=== PATIENT | male | born 1940 | race Caucasian/White ===

== ENCOUNTER → 2018-03-22 10:33 | Outpatient (CLI) | payer OTHER, SELFPAY ==
[2018-03-22 11:53] LABS: Alanine Aminotransferase 23 IU/L (21-72); Albumin 4.1 g/dL (3.5-5.0); Albumin Globulin Ratio 1.4 (1.0-2.8); Alkaline Phosphatase 62 U/L (38-126); Aspartate Aminotransferase 19 IU/L (17-59); BUN Creatinine Ratio 13.8 (6-22); Bilirubin Total 0.8 mg/dL (0.2-1.3); Calcium 9.2 mg/dL (8.4-10.2); Estimated Glomerular Filt Rate 53.3 mL/min (>60); Glucose 163 mg/dL (80-110); HEMOLYSIS < 15 (0-50); Potassium 4.6 mmol/L (3.4-5.1); Sodium 142 mmol/L (137-145); Total Protein 7.1 g/dL (6.3-8.2)
[2018-03-22 18:26] LABS: Hemoglobin A1C% w Est Avg Glu 7.5 % (4.0-6.0)
== END ==
PROVIDERS: PCP Internal Medicine; Visit Provider Internal Medicine
DX: E66.9 Obesity, unspecified (principal); E11.22 Type 2 diabetes mellitus with diabetic chronic kidney disease
CPT/HCPCS: 36415; 80053; 83036

== ENCOUNTER → 2018-05-21 14:49 | Outpatient (CLI) | payer OTHER, SELFPAY ==
[2018-05-21 19:37] LABS: Hemoglobin A1C% w Est Avg Glu 7.3 % (4.0-6.0)
== END ==
PROVIDERS: PCP Internal Medicine; Visit Provider Orthopaedic Surgery
DX: R73.9 Hyperglycemia, unspecified (principal); M17.12 Unilateral primary osteoarthritis, left knee
CPT/HCPCS: 36415; 83036

== ENCOUNTER 2018-05-27 16:06 | Observation (INO) | payer OTHER, SELFPAY ==
--- NOTE | 2018-05-27 | DI.ECHO.S_ITS ---
[facility] +---------+ : : [address] : : : : [id number] : : : : Phone: [phone]+ Echocardiogram Report + + :Name: CHELSEA BENSON Study Date: 05/28/2018 Height: 68 in : :[facility] Exam Location: [place] Weight: 197 lb : : Gender: Male BSA: 2.0 m2 : :: 1940 Age: 77 yrs BP: 134/77 mmHg: :Reason For Study: CVA : :Ordering Physician: Anali : :Cousins Performed By: Anuja Zendejas : :Referring: ANALI SERRANO A : + + Interpretation Summary There is mild concentric left ventricular hypertrophy. The left ventricular ejection fraction is normal. The ejection fraction is estimated to be 55-60%. There are no focal wall motion abnormalities. Assessment of diastolic parameters indicates a relaxation abnormality of the left ventricle, consistent with normal filling pressures. The right ventricle is normal in size and function. Pulmonary artery pressures cannot be estimated because of the lack of a measurable TR jet velocity. The left atrial size is normal. The right atrium is moderately dilated. There is no significant valvular heart disease. The ascending aorta is mildly enlarged. The aortic arch is mildly enlarged. No obvious source for cardiac embolic CVA. Procedure: A two-dimensional transthoracic echocardiogram with color flow and Doppler was performed. The study quality was technically adequate. Comparison is made with the echocardiogram of 03/05/17. The patient was in sinus bradycardia with heart rates between 51 and 60 bpm during the exam. Left Ventricle: The left ventricle is normal in size. There is mild concentric left ventricular hypertrophy. The left ventricular ejection fraction is normal. The ejection fraction is estimated to be 55-60%. There are no focal wall motion abnormalities. Assessment of diastolic parameters indicates a relaxation abnormality of the left ventricle, consistent with normal filling pressures. Right Ventricle: The right ventricle is normal in size and function. Atria: The left atrial size is normal. The right atrium is moderately dilated. There is no Doppler evidence for an interatrial shunt. Mitral Valve: The mitral valve leaflets appear thickened, but open well. There is trace mitral regurgitation. Aortic Valve: The aortic valve is trileaflet. There is mild aortic valve sclerosis. The aortic valve opens well. There is trace aortic regurgitation. Tricuspid Valve: The tricuspid valve is normal. There is a trace or physiologic amount of tricuspid regurgitation. Pulmonary artery pressures cannot be estimated because of the lack of a measurable TR jet velocity. Pulmonic Valve: The pulmonic valve leaflets are thin and pliable; valve motion is normal. There is mild pulmonic regurgitation. There is no significant valvular heart disease. Great Vessels: The aortic root is normal size. The ascending aorta is mildly enlarged. The aortic arch is mildly enlarged. The pulmonary is not well visualized. The IVC is of normal diameter and collapses greater than 50% with a sniff. This suggests a low right atrial pressure of 3 mm Hg. Pericardium/ Pleura There is no pericardial effusion. There is no pleural effusion. MMode/2D Measurements & Calculations LVIDd: 4.8 cm LVOT diam: 2.1 cm LVIDs: 3.2 cm Ao root diam: 3.6 cm FS: 32.8 % asc Aorta Diam: 4.0 cm EPSS: 0.87 cm Ao Arch Diam (Prox Trans): 3.8 cm IVSd: 1.1 cm LVPWd: 1.0 cm LV ryan. diameter/BSA (cm/m^2): 2.4 LV sys. diameter/BSA (cm/m^2): 1.6 LA A2 area: 23.5 cm2 RA long axis: 5.8 cm LA A4 area: 15.1 cm2 RA area: 25.0 cm2 LA length (vol): 5.6 cm RA vol: 91.5 ml LA vol: 53.8 ml RA : 45.1 ml/m2 LA vol index: 26.5 ml/m2 IVC diam: 1.9 cm RVD1 (basal): 4.6 cm RVD2 (mid): 3.9 cm TAPSE: 2.3 cm Doppler Measurements & Calculations Ao V2 max: 145.3 cm/sec LVOT Max Tony: 89.5 cm/sec Ao V2 mean: 101.7 cm/sec LV V1 max P.2 mmHg Ao max P.4 mmHg LV V1 VTI: 21.1 cm Ao mean P.5 mmHg CATHRYN(I,D): 2.1 cm2 Ao V2 VTI: 33.3 cm CATHRYN(V,D): 2.0 cm2 sev ratio: 0.63 CATHRYN indexed to BSA (cm^2/m^2): 1.0 MV E max tony: 77.2 cm/sec PA V2 max: 85.4 cm/sec MV A max tony: 88.3 cm/sec PA V2 mean: 56.5 cm/sec MV E/A: 0.87 PA mean P.5 mmHg Med Peak E' Tony: 5.1 cm/sec PA pr(Accel): 14.1 mmHg E/E' med: 15.3 Lat Peak E' Tony: 7.2 cm/sec E/E' lat: 10.8 E/e' average: 13.0 MV dec time: 0.21 sec MV P1/2t: 61.7 msec MV P1/2t max tony: 76.1 cm/sec MVA(P1/2t): 3.6 cm2 Reading Physician:DAY
--- NOTE | 2018-05-27 | DI.MRI.S_ITS ---
PROCEDURE: MR STROKE Pre- and post-contrast brain MRI, non-contrast brain MR angiogram, pre- and postcontrast neck MR angiogram INDICATIONS: POSS CVA TECHNIQUE: Brain: Noncontrast axial T1 spin echo, axial T2 fast spin echo, sagittal and axial FLAIR, coronal T2 fast spin echo, axial gradient echo, axial diffusion and ADC through the brain. After the administration of contrast, axial 3D VIBE of the cranial vasculature and brain. Brain MRA: Non-contrast 3-D time of flight MR angiogram, with multiple zyixydq-ckjqefpnc-gzdyspfrci (MIP) reformats performed. Neck MRA: Axial and sagittal TruFISP through the neck. Coronal dynamic MR angiogram during administration of contrast in the arterial and venous phases, with 3-dimenstional tdcqnuy-hiniywudw-qiwnmqfwri (MIP) reformats constructed from subtraction images. COMPARISON: None. FINDINGS: Image quality: Slightly degraded by patient motion artifact. BRAIN: CSF spaces: Ventricles are normal in size and shape. Basal cisterns are patent. No extra-axial fluid collections. Brain: No intracranial bleeds or mass effects. Christian-white matter interface is normal. Diffusion weighted images show no acute ischemic insults. There are moderate to severe periventricular and subcortical white matter chronic microvascular ischemic changes. Brainstem appears normal. Normal intravascular flow voids are present. No abnormal intracranial enhancement. Skull and face: Calvarial marrow signal is normal. Orbits appear normal. Sinuses: Sinuses and mastoids are clear. BRAIN MR ANGIOGRAM: Anterior circulation: Intracranial internal carotid arteries are normal in size and enhancement. The flow within the paired anterior cerebral arteries is normal and symmetric. The flow within the middle cerebral arteries is normal and symmetric. The anterior communicating artery is seen. No stenoses, occlusions, or aneurysms. Posterior circulation: The visualized portions of the vertebral arteries demonstrate normal caliber, and join to form a normal appearing basilar artery. The flow within the posterior cerebral arteries is normal and symmetric. No stenoses, occlusions, or aneurysms. NECK MR ANGIOGRAM: Carotids: Great vessels demonstrate aligned anatomy as they arise from the aortic arch. The origins of the common carotid arteries appear patent. The calibers and courses of both common carotid arteries are normal. Mild atherosclerotic irregularity is noted in the origins of the internal carotid arteries bilaterally which causes less than 50% stenosis of the vessels. Posterior circulation: The origins of the vertebral arteries are poorly visualized due to motion artifact and cannot be evaluated. More superior portions of both vertebral arteries demonstrate normal course and caliber, and join to form a normal appearing basilar artery. Miscellaneous: Subclavian arteries appear patent. Pre-contrast images through the neck show no soft tissue abnormalities. IMPRESSION: BRAIN MRI: 1. No acute intracranial disease process. 2. No areas of acute or chronic infarction. 3. Moderate, diffuse cerebral volume loss. 4. Moderate periventricular and subcortical white matter chronic microvascular ischemic changes. BRAIN MR ANGIOGRAM: Negative examination. NECK MR ANGIOGRAM: 1. Less than 50% stenosis of the origins of the internal carotid arteries bilaterally. 3. Origins of the vertebral arteries are not well-visualized secondary to motion artifact and cannot be evaluated. The well visualized portions of the vertebral arteries are fully patent. Dictated by: Jolie Fermin MD, PhD on 05/28/2018 at 12:12 Approved by: Jolie Fermin MD, PhD on 05/28/2018 at 12:19
[2018-05-27 16:20] VITALS: BP 168/80; PULSE 73; RESP 16; TEMP 36.7; O2SAT 99
--- NOTE | 2018-05-27 16:29 | DI.CT.S_ITS ---
PROCEDURE: CT ANGIO HEAD AND NECK INDICATIONS: possible stroke, tpa candidate TECHNIQUE: Pre-contrast 4.5 mm thick sections acquired from the foramen magnum to the vertex. After the administration of intravenous contrast, 1 mm thick sections acquired from the aortic arch through the Counselor of Qiu. Post-contrast 4.5 mm thick sections then re-acquired from the foramen magnum to the vertex. 3-dimensional rfvamti-clkvslnqo-oklggbzhix (MIP) and/or volume rendering reformats were acquired of the central intracranial vasculature and neck separately. COMPARISON: [facility], CT, HEAD WITHOUT CONTRAST, 03/04/2017, 20:26. [facility], CT, HEAD AND NECK ANGIO, 03/04/2017, 20:55. [facility], MR, STROKE PROTOCOL, 03/05/2017, 8:52. FINDINGS: Image quality: Excellent. BRAIN: CSF spaces: Ventricles are enlarged and symmetrical in size and shape. Basal cisterns are patent. No extra-axial fluid collections. Brain: No midline shift. No intracranial bleeds or masses. Christian-white matter interface appears intact. Periventricular and deep white matter chronic small vessel ischemic changes. Skull and face: Calvarium and facial bones appear intact, without suspicious lesions. Orbits appear normal. Sinuses: Sinuses and mastoids are clear. HEAD CT ANGIOGRAPHY: Anterior circulation: Intracranial internal carotid arteries are normal in size and flow. The flow within the paired anterior cerebral arteries is normal and symmetric. The flow within the middle cerebral arteries is normal and symmetric. The anterior communicating artery is seen. No aneurysms are seen. Posterior circulation: Visualized portions of the vertebral arteries demonstrate normal caliber, and join to form a normal appearing basilar artery. Flow within the posterior cerebral arteries is normal and symmetric. No aneurysms are seen. NECK CT ANGIOGRAPHY: Carotid system: The great vessels demonstrate a conventional anatomy as they arise from the aortic arch. The origins of the common carotid arteries appear patent. The common carotid arteries demonstrate normal caliber and courses. The bifurcation regions show a calcified plaque in the proximal ICA on the right and a soft plaque posteriorly on the left, both stenoses less than 50%. The internal carotid arteries demonstrate normal calibers and courses. Posterior circulation: The origins of the vertebral arteries both appear widely patent. The more superior extracranial portions of both vertebral arteries also demonstrate normal courses and calibers. They join to form a normal appearing basilar artery. Soft tissues: Visualized neck soft tissues demonstrate no suspicious abnormalities. Bones: No suspicious bony lesions. Visualized cervical spine appears normally aligned. IMPRESSION: 1. No intracranial hemorrhage or contraindication to TPA seen. 2. Age related atrophy, primarily central. Chronic deep white matter ischemic changes. 3. 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 4. Normal-appearing intracranial vasculature, no occlusion or aneurysm seen. Any quantitative measurements of stenosis were performed using NASCET criteria. Dictated by: Cornelius Choudhury M.D. on 05/27/2018 at 16:55 Approved by: Cornelius Choudhury M.D. on 05/27/2018 at 17:02
[2018-05-27 16:36] LABS: Add Manual Diff / Slide Review NO; Basophils Percent Auto 0.5 % (0-2); Eosinophils Percent Auto 0.4 % (2-4); Hematocrit 40.4 % (41-53); Hemoglobin 13.9 g/dL (13.5-17.5); Lymphocytes Percent Auto 21.5 % (25-40); Mean Corpuscular HGB Conc 34.5 % (30-36); Mean Corpuscular Hemoglobin 29.9 PG (26-34); Mean Corpuscular Volume 86.6 fL (80-100); Monocytes Percent Auto 6.3 % (3-14); Neutrophils Absolute Auto 5800 /uL (3000-5900); Neutrophils Percent Auto 71.3 % (50-75); Platelet Count 273 X10^3/uL (150-400); Red Blood Cell Count 4.66 X10^6/uL (4.5-5.9); Red Cell Distribution Width 13.7 % (11.6-14.8); White Blood Cell Count 8.2 X10^3/uL (4.5-11.0)
[2018-05-27 16:43] LABS: INR 1.1 (0.9-1.3); Prothrombin Time 11.9 SECONDS (10.1-12.7)
[2018-05-27 16:46] LABS: PTT Partial Thromboplastin Tim 30 SECONDS (26.4-36.2)
--- NOTE | 2018-05-27 16:48 | ED.AMS ---
HPI - Altered Mental Status General Chief Complaint: Altered Mental Status Stated Complaint: MIXING UP WORDS, SLURRING EARLIER Time Seen by Provider: 05/27/18 16:28 Source: patient and family Mode of arrival: ambulatory Limitations: no limitations History of Present Illness HPI narrative: Patient is a 77-year-old male here for evaluation of slurring his words and being confused. He is with his family member who is at bedside. His reported that sometime earlier in the day the patient left the house. The patient and the family member do not know exactly when this time was. When he returned to the home the family member states that he was slurring his words and was confused. They stated that this is not his baseline. They also stated that the patient had similar symptoms a couple days ago but just went to sleep when they came on and when he woke up everything was improved. At the time of evaluation patient and the family member both state that the slurring had resolved. The patient does agree that he has had some problems with remembering things. He denies any other symptoms. Related Data Home Medications Medication Instructions Recorded Confirmed naproxen sodium 220 mg capsule 440 mg PO TID cap 05/17/18 05/27/18 Syringes: 1cc Insulin Syringes 1 syr QPM 05/27/18 05/27/18 with [place] Test Strips - Freestyle 1 str BID 05/27/18 05/27/18 Previous Rx's Medication Instructions Recorded aspirin 325 mg PO QDAY #30 tab 03/05/17 atorvastatin [Lipitor] 20 mg PO HS #90 tab 09/10/17 lisinopril 30 mg PO BID #180 tab 10/20/17 metoprolol succinate 50 mg PO QDAY #90 ter 10/20/17 insulin glargine [Lantus U-100 12 - 14 unit SQ SEE INSTRUCTIONS 01/21/18 Insulin] #5 vial glimepiride 2 mg tablet 2 mg PO Q DAY #90 tab 04/01/18 Allergies Allergy/AdvReac Type Severity Reaction Status Date / Time finasteride AdvReac Mild DIZZY/ILL Verified 05/17/18 14:53 Review of Systems Constitutional Denies fatigue, Denies fever(s) and Denies headache(s) Eyes Denies blurry vision, Denies diplopia, Denies irritation and Denies loss of vision ENT Ears, Nose, Mouth, and Throat: Denies vertigo, Denies dizziness, Denies facial pain, Denies headache(s), Denies neck pain and Denies disequilibrium Cardiovascular Denies chest pain, Denies syncope and Denies palpitations Respiratory Denies chest congestion and Denies cough Gastrointestinal Gastrointestinal: Denies constipation, Denies diarrhea, Denies nausea and Denies vomiting Genitourinary Denies dysuria Musculoskeletal Denies abnormal gait, Denies myalgias, Denies arthralgias, Denies neck pain and Denies tingling Integumentary/Breasts Denies lesions and Denies rash Neurologic Reports abnormal speech, Denies abnormal gait, Reports confusion, Denies vertigo, Denies dizziness, Denies syncope, Denies headache(s), Denies focal weakness, Denies loss of vision, Denies convulsions, Denies sensory deficit, Denies tingling, Denies paresthesias and Denies disequilibrium Psychiatric Reports confusion and Denies depression Endocrine Denies fatigue and Denies palpitations Hematologic/Lymphatic Denies easy bleeding and Denies easy bruising Allergic/Immunologic Denies urticaria Exam Initial Vital Signs Initial Vital Signs: Vital Signs Temperature 98.1 F 05/27/18 16:20 Pulse Rate 73 05/27/18 16:20 Respiratory Rate 16 05/27/18 16:20 Blood Pressure 168/80 H 05/27/18 16:20 Pulse Oximetry 99 05/27/18 16:20 Const General: cooperative, healthy appearing, comfortable, well developed, well groomed and No acute distress Orientation: alert, awake and oriented x3 [facility] Head: normal to inspection, normocephalic and atraumatic Ears: hearing grossly normal bilaterally Nose: external nose normal Face and sinus: normal facial exam and face symmetric Mouth: oral mucosae normal Eyes General: appearance normal, both eyes and all related structures Pupils: PERRL EOM: EOM intact bilaterally Resp Effort & Inspection: normal respiratory effort Auscultation: clear to auscultation bilaterally Cardio Rate: regular rate Rhythm: regular rhythm Pulses: radial pulses present GI Inspection: normal to inspection and non-distended Palpation: soft and No tender Back/Spine/Pelvis Back: normal to inspection and No CVA tenderness Skin Lesions: no lesions Rashes: no rashes Neuro General: alert, awake and oriented ( Oriented to person, place, did not know the year, did not know the president) Cranial Nerves: CN's II-XI intact bilaterally Speech: speech normal Motor: muscle tone normal throughout and strength 5/5 throughout Sensory Exam: no sensory deficits noted Extrem General: normal to inspection and capillary refill normal Psych Appearance: grossly normal, well kempt and not disheveled Scores NIH Stroke Scale Level of Conciousness: Alert, keenly responsive Ask month/age: Answers both questions correctly. Open/close eyes, close hand: Performs both tasks correctly Best gaze horizontal: Normal Visual suazo: No visual loss Facial palsy: Normal symetrical movement Left arm drift: No drift for full 10 sec Right arm drift: No drift for full 10 sec Left leg drift: No drift for full 10 sec Right leg drift: No drift for full 10 sec Limb ataxia: Absent Sensory on face/arms/legs: Normal, no sensory loss Best language: No aphasia, normal Dysarthria: Normal Extinction or inattention: No abnormality Total NIH Stroke scale score: 0 Course Orders Ordered: ED Orders 05/27/18 16:25 Basic Metabolic Panel Stat Complete Blood Count AUTO DIFF Stat Partial Thromboplastin Time Stat Prothrombin Time INR Stat Type and Screen Stat 05/27/18 16:29 CT angio head and neck Stat EKG-12 Lead Stat 05/27/18 18:57 Education, smoking cessation ONGOING Acetaminophen (Tylenol) 650 mg PO Q6HR PRN PRN Reason: As Needed for Fever/Mild Pain Aspirin (Aspirin Ec) 325 mg PO DAILY JEAN PAUL Atorvastatin Calcium (Lipitor) 20 mg PO BEDTIME JEAN PAUL Glimepiride (Amaryl) 2 mg PO DAILY JEAN PAUL Hydralazine HCl (Apresoline) 10 mg PO Q8HR PRN PRN Reason: BP>165 Insulin Glargine (Lantus Solostar (Pen)) 15 unit SUBCUT BEDTIME JEAN PAUL Ondansetron HCl (Zofran Odt) 4 mg PO Q8HR PRN PRN Reason: Nausea And Vomiting Discontinued Medications Aspirin (Aspirin Chew) 324 mg PO NOW ONE Stop: 05/27/18 17:10 Last Admin: 05/27/18 17:21 Dose: 324 mg Vital Signs - 8 hr 05/27/18 16:20 05/27/18 17:44 05/27/18 18:10 Temperature 98.1 F Pulse Rate 73 64 64 Respiratory Rate 16 22 9 L Blood Pressure 168/80 H Blood Pressure [Left Arm] 138/88 H 179/89 H Pulse Oximetry 99 96 100 05/27/18 18:20 Temperature Pulse Rate 62 Respiratory Rate 16 Blood Pressure 179/89 H Blood Pressure [Left Arm] Pulse Oximetry 96 MDM - Altered Mental Status Medical Records Attestation: I reviewed the patient's medical records. Lab Data Attestation: I reviewed the patient's lab results. Result diagrams: 05/27/18 16:25 05/27/18 16:25 Lab Results 05/27/18 05/27/18 05/27/18 Range/Units 16:25 16:25 16:25 WBC 8.2 (4.5-11.0) X10^3/uL RBC 4.66 (4.5-5.9) X10^6/uL Hgb 13.9 (13.5-17.5) g/dL Hct 40.4 L (41-53) % MCV 86.6 (80-100) fL MCH 29.9 (26-34) PG MCHC 34.5 (30-36) % RDW 13.7 (11.6-14.8) % Plt Count 273 (150-400) X10^3/uL Neut % (Auto) 71.3 (50-75) % Lymph % (Auto) 21.5 L (25-40) % Gila % (Auto) 6.3 (3-14) % Eos % (Auto) 0.4 L (2-4) % Baso % (Auto) 0.5 (0-2) % Neut # (Auto) 5800 (3866-8555) /uL PT 11.9 (10.1-12.7) SECONDS INR 1.1 (0.9-1.3) APTT 30 (26.4-36.2) SECONDS Sodium 142 (137-145) mmol/L Potassium 3.9 (3.4-5.1) mmol/L Chloride 106 (98-107) mmol/L Carbon Dioxide 26 (22-32) mmol/L BUN 18 (9-20) mg/dL Creatinine 1.30 H (0.66-1.25) mg/dL Estimated GFR 53.3 L (>60) mL/min BUN/Creatinine Ratio 13.8 (6-22) Glucose 177 H (80-110) mg/dL Calcium 9.1 (8.4-10.2) mg/dL Blood Type Antibody Screen 05/27/18 Range/Units 16:25 WBC (4.5-11.0) X10^3/uL RBC (4.5-5.9) X10^6/uL Hgb (13.5-17.5) g/dL Hct (41-53) % MCV (80-100) fL MCH (26-34) PG MCHC (30-36) % RDW (11.6-14.8) % Plt Count (150-400) X10^3/uL Neut % (Auto) (50-75) % Lymph % (Auto) (25-40) % Gila % (Auto) (3-14) % Eos % (Auto) (2-4) % Baso % (Auto) (0-2) % Neut # (Auto) (5570-2886) /uL PT (10.1-12.7) SECONDS INR (0.9-1.3) APTT (26.4-36.2) SECONDS Sodium (137-145) mmol/L Potassium (3.4-5.1) mmol/L Chloride (98-107) mmol/L Carbon Dioxide (22-32) mmol/L BUN (9-20) mg/dL Creatinine (0.66-1.25) mg/dL Estimated GFR (>60) mL/min BUN/Creatinine Ratio (6-22) Glucose (80-110) mg/dL Calcium (8.4-10.2) mg/dL Blood Type A Negative Antibody Screen Negative Imaging Data CT scan - head: Radiologist's impression: PROCEDURE: CT ANGIO HEAD AND NECK INDICATIONS: possible stroke, tpa candidate TECHNIQUE: Pre-contrast 4.5 mm thick sections acquired from the foramen magnum to the vertex. After the administration of intravenous contrast, 1 mm thick sections acquired from the aortic arch through the [place] of [place]. Post-contrast 4.5 mm thick sections then re-acquired from the foramen magnum to the vertex. 3-dimensional uxzowmw-kjdvxphvt-xkqfizxfsy (MIP) and/or volume rendering reformats were acquired of the central intracranial vasculature and neck separately. COMPARISON: [facility], CT, HEAD WITHOUT CONTRAST, 03/04/2017, 20:26. [facility], CT, HEAD AND NECK ANGIO, 03/04/2017, 20:55. [facility], MR, STROKE PROTOCOL, 03/05/2017, 8:52. FINDINGS: Image quality: Excellent. BRAIN: CSF spaces: Ventricles are enlarged and symmetrical in size and shape. Basal cisterns are patent. No extra-axial fluid collections. Brain: No midline shift. No intracranial bleeds or masses. Christian-white matter interface appears intact. Periventricular and deep white matter chronic small vessel ischemic changes. Skull and face: Calvarium and facial bones appear intact, without suspicious lesions. Orbits appear normal. Sinuses: Sinuses and mastoids are clear. HEAD CT ANGIOGRAPHY: Anterior circulation: Intracranial internal carotid arteries are normal in size and flow. The flow within the paired anterior cerebral arteries is normal and symmetric. The flow within the middle cerebral arteries is normal and symmetric. The anterior communicating artery is seen. No aneurysms are seen. Posterior circulation: Visualized portions of the vertebral arteries demonstrate normal caliber, and join to form a normal appearing basilar artery. Flow within the posterior cerebral arteries is normal and symmetric. No aneurysms are seen. NECK CT ANGIOGRAPHY: Carotid system: The great vessels demonstrate a conventional anatomy as they arise from the aortic arch. The origins of the common carotid arteries appear patent. The common carotid arteries demonstrate normal caliber and courses. The bifurcation regions show a calcified plaque in the proximal ICA on the right and a soft plaque posteriorly on the left, both stenoses less than 50%. The internal carotid arteries demonstrate normal calibers and courses. Posterior circulation: The origins of the vertebral arteries both appear widely patent. The more superior extracranial portions of both vertebral arteries also demonstrate normal courses and calibers. They join to form a normal appearing basilar artery. Soft tissues: Visualized neck soft tissues demonstrate no suspicious abnormalities. Bones: No suspicious bony lesions. Visualized cervical spine appears normally aligned. IMPRESSION: 1. No intracranial hemorrhage or contraindication to TPA seen. 2. Age related atrophy, primarily central. Chronic deep white matter ischemic changes. 3. 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 4. Normal-appearing intracranial vasculature, no occlusion or aneurysm seen. Any quantitative measurements of stenosis were performed using NASCET criteria. Dictated by: Cornelius Choudhury M.D. on 05/27/2018 at 16:55 Approved by: Cornelius Choudhury M.D. on 05/27/2018 at 17:02 ECG Data Attestation: I personally reviewed and interpreted this ECG as follows: Prior ECG tracings: not available for review Interpretation: sinus rhythm ventricular rate is 69 normal axis Normal intervals normal QRS Normal QTC nonspecific ST T wave changes MDM Narrative Medical decision making narrative: unsure as the exact onset of patient's symptoms today. Did have similar symptoms a couple days ago which resolved on their own. Initially patient did not know the year but upon re-evaluation he did know that it was 2018. Still had problems with remembering the president was. Patient was given aspirin here in the ER. Head CT shows no acute pathology. Patient's history and physical exam are consistent with a TIA. When I explained this to him he states that he has had TIAs in the past. He states that he is not on any medications for these and has not had a workup for these. Unsure as to how he initially received this diagnosis. Discussed the case with Dr. Bravo who will admit for further evaluation and treatment. Discharge Plan Departure Patient Disposition: Admitted as Observation Clinical Impression: Brain TIA Discharge Date/Time: 05/27/18 18:21 Interventions: ED Discharge Assessment Last Done: 05/27/18 18:20 Admit Date/Time: 05/27/18 17:40 Admit Provider: Niki Bravo
[2018-05-27 16:49] LABS: BUN Creatinine Ratio 13.8 (6-22); Blood Urea Nitrogen 18 mg/dL (9-20); Calcium 9.1 mg/dL (8.4-10.2); Carbon Dioxide 26 mmol/L (22-32); Chloride 106 mmol/L (98-107); Estimated Glomerular Filt Rate 53.3 mL/min (>60); Glucose 177 mg/dL (80-110); HEMOLYSIS < 15 (0-50); Potassium 3.9 mmol/L (3.4-5.1); Sodium 142 mmol/L (137-145)
[2018-05-27] MEDS: ASPIRIN 81 MG TAB 324 MG PO (17:21)
[2018-05-27 17:44] VITALS: BP 138/88; PULSE 64; RESP 22; O2SAT 96
[2018-05-27 17:46] VITALS: BMI 29.8
[2018-05-27 18:10] VITALS: BP 179/89; PULSE 64; RESP 9; O2SAT 100
[2018-05-27 18:20] VITALS: BP 179/89; PULSE 62; RESP 16; O2SAT 96
[2018-05-27 18:25] VITALS: BP 149/81; PULSE 65; RESP 20; TEMP 36.6; O2SAT 97
--- NOTE | 2018-05-27 18:47 | PM.HP.1 ---
History of Present Illness Date Patient Seen: 05/27/18 Time Patient Seen: 18:00 Chief complaint: MIXING UP WORDS, SLURRING EARLIER Narrative: Patient is a 77-year-old gentleman, patient of Dr. Sebastian, who presented to the emergency room with his [id number] after being found to have slurred speech. Patient came home earlier in the afternoon, said he went to the pharmacy, and after that was noted to having nonsensical speech, mixing up words, and slurring his speech. The patient was brought to the emergency room shortly there after. Patient seems to be at his baseline per the uyftxy-[id number]-yzw at the point of my exam. Nevertheless, patient reports a few days ago he had a very similar episode. Apparently, he went to bed at that time, and woke up and was normal. Per patient he does have a history of TIAs, but no clear CVA. Per emergency room report, patient initially could not identify the date, but was able to identify place. Did not know the president. 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) Essential hypertension (Chronic) Hyperlipidemia with target low density lipoprotein (LDL) cholesterol less than 70 mg/dL (Chronic 03/24/17) Personal history of stroke with current residual effects (Chronic 09/03/11) Benign prostatic hyperplasia (Chronic 09/06/14) Class 1 obesity (Chronic 03/24/17) Primary osteoarthritis of both knees (Chronic 11/05/17) Primary osteoarthritis of left knee (Chronic 10/19/17) CVA (cerebral vascular accident) (Resolved) Family & Social History Family History: Reviewed 05/27/18 by Niki Bravo MD Social History: household members spouse Prior Living Arrangements House Safety & Behavioral: Feels Safe in Current Yes Environment Been Physically Hurt or No Threatened By a Person Suicidal Ideation Description None Suicide Plan Description No Plan Tobacco & Substance use: Smoking Status Never smoker alcohol intake frequency holiday/special occasion Substance Use Type does not use Meds Home Medications Medication Instructions Recorded Confirmed Type aspirin 325 mg PO QDAY #30 tab 03/05/17 05/27/18 Rx atorvastatin [Lipitor] 20 mg PO HS #90 tab 09/10/17 05/27/18 Rx lisinopril 30 mg PO BID #180 tab 10/20/17 05/27/18 Rx metoprolol succinate 50 mg PO QDAY #90 ter 10/20/17 05/27/18 Rx insulin glargine [Lantus U-100 12 - 14 unit SQ SEE INSTRUCTIONS 01/21/18 05/27/18 Rx Insulin] #5 vial glimepiride 2 mg tablet 2 mg PO Q DAY #90 tab 04/01/18 05/27/18 Rx naproxen sodium 220 mg capsule 440 mg PO TID cap 05/17/18 05/27/18 History Syringes: 1cc Insulin Syringes 1 syr QPM 05/27/18 05/27/18 History with [place] Test Strips - Freestyle 1 str BID 05/27/18 05/27/18 History Allergies Allergy/AdvReac Type Severity Reaction Status Date / Time finasteride AdvReac Mild DIZZY/ILL Verified 05/17/18 14:53 Review of Systems Review of Systems All systems reviewed & are unremarkable except as noted in HPI and below Exam Vital Signs (past 8 hours): GENERAL: Well-developed well-nourished man, looking younger than his stated age lying in hospital bed HEENT: Normocephalic, atraumatic, pupils equal and reactive to light and accommodation. Extraocular movements are intact. Neck supple, no lymphadenopathy. LUNG: Clear to auscultation bilaterally. No wheeze or crackles or rhonchi. No increased work in breathing. CV: Regular rate and rhythm. No murmurs rubs or gallops. NEURO: CRANIAL NERVES 2-12 WERE GROSSLY INTACT. No facial drooping or other abnormalities. Upper extremity and lower extremity strength is 5/5. Accounting Generalist strength is 5/5. Able to move all extremities without difficulty. I did have the patient do the [id number]-ji-[id number] maneuver, and he did seem a little uncoordinated but it is unclear his baseline. AFFECT: Alert and oriented X3. S patient's speech was a bit slow, and he did have difficulty answering questions but again, it is difficult to know his baseline. 05/27/18 16:20 05/27/18 17:44 05/27/18 18:10 Temperature 98.1 F Pulse Rate 73 64 64 Respiratory Rate 16 22 9 L Blood Pressure 168/80 H Blood Pressure [Left Arm] 138/88 H 179/89 H Pulse Oximetry 99 96 100 05/27/18 18:20 Temperature Pulse Rate 62 Respiratory Rate 16 Blood Pressure 179/89 H Blood Pressure [Left Arm] Pulse Oximetry 96 Oxygen Delivery Method Room Air Objective Labs Result Diagrams: 05/27/18 16:25 05/27/18 16:25 Labs: Laboratory Results - last 24 hr 05/27/18 05/27/18 05/27/18 16:25 16:25 16:25 WBC 8.2 RBC 4.66 Hgb 13.9 Hct 40.4 L MCV 86.6 MCH 29.9 MCHC 34.5 RDW 13.7 Plt Count 273 Neut % (Auto) 71.3 Lymph % (Auto) 21.[address] % (Auto) 6.3 Eos % (Auto) 0.4 L Baso % (Auto) 0.5 Neut # (Auto) 5800 PT 11.9 INR 1.1 APTT 30 Sodium 142 Potassium 3.9 Chloride 106 Carbon Dioxide 26 BUN 18 Creatinine 1.30 H Estimated GFR 53.3 L BUN/Creatinine Ratio 13.8 Glucose 177 H Calcium 9.1 Blood Type Antibody Screen 05/27/18 16:25 WBC RBC Hgb Hct MCV MCH MCHC RDW Plt Count Neut % (Auto) Lymph % (Auto) Lane % (Auto) Eos % (Auto) Baso % (Auto) Neut # (Auto) PT INR APTT Sodium Potassium Chloride Carbon Dioxide BUN Creatinine Estimated GFR BUN/Creatinine Ratio Glucose Calcium Blood Type A Negative Antibody Screen Negative Assessment & Plan Plan: Assessment/Plan Narrative: 1. Possible CVA versus TIA. -Patient given aspirin in the emergency room. -patient certainly has multiple risk factors including diabetes and hypertension. -will refer patient for observation overnight, order echocardiogram, MRI/MRA, carotid ultrasound, telemetry - will withhold antihypertensives for now. 2. Diabetes mellitus type 2 insulin dependent -patient is taking p.o., so will continue Lantus 12 units at HS -continue glimepiride -continue statin -consider discharge on aspirin or other anti-platelet 3. Chronic kidney disease - patient did receive contrast for the CT, so will check creatinine in a.m. 4. Hypertension. - hold antihypertensives for blood pressure less than 160. 5. DVT prophylaxis- SCDs for now, patient ambulatory 6. Disposition. Refer for observation 7. Code status: Full code, discussion was had with patient. Quality VTE Deep Vein Thrombosis/Pulmonary Embolism Present on Admission: No
--- NOTE | 2018-05-27 18:57 | P.HP_ITS ---
History of Present Illness Date Patient Seen: 05/27/18 Time Patient Seen: 18:00 Chief complaint: MIXING UP WORDS, SLURRING EARLIER Narrative: Patient is a 77-year-old gentleman, patient of Dr. Sebastian, who presented to the emergency room with his [id number] after being found to have slurred speech. Patient came home earlier in the afternoon, said he went to the pharmacy, and after that was noted to having nonsensical speech, mixing up words, and slurring his speech. The patient was brought to the emergency room shortly there after. Patient seems to be at his baseline per the sister-in -law at the point of my exam. Nevertheless, patient reports a few days ago he had a very similar episode. Apparently, he went to bed at that time, and woke up and was normal. Per patient he does have a history of TIAs, but no clear CVA. Per emergency room report, patient initially could not identify the date, but was able to identify place. Did not know the president. 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) Essential hypertension (Chronic) Hyperlipidemia with target low density lipoprotein (LDL) cholesterol less than 70 mg/dL (Chronic 03/24/17) Personal history of stroke with current residual effects (Chronic 09/03/11) Benign prostatic hyperplasia (Chronic 09/06/14) Class 1 obesity (Chronic 03/24/17) Primary osteoarthritis of both knees (Chronic 11/05/17) Primary osteoarthritis of left knee (Chronic 10/19/17) CVA (cerebral vascular accident) (Resolved) Family & Social History Family History: Reviewed 05/27/18 by Niki Bravo MD Social History: household members spouse Prior Living Arrangements House Safety & Behavioral: Feels Safe in Current Yes Environment Been Physically Hurt or No Threatened By a Person Suicidal Ideation Description None Suicide Plan Description No Plan Tobacco & Substance use: Smoking Status Never smoker alcohol intake frequency holiday/special occasion Substance Use Type does not use Meds Home Medications Medication Instructions Recorded Confirmed Type aspirin 325 mg PO QDAY #30 tab 03/05/17 05/27/18 Rx atorvastatin [Lipitor] 20 mg PO HS #90 tab 09/10/17 05/27/18 Rx lisinopril 30 mg PO BID #180 tab 10/20/17 05/27/18 Rx metoprolol succinate 50 mg PO QDAY #90 ter 10/20/17 05/27/18 Rx insulin glargine [Lantus U-100 12 - 14 unit SQ SEE INSTRUCTIONS 01/21/18 Rx Insulin] #5 vial glimepiride 2 mg tablet 2 mg PO Q DAY #90 tab 04/01/18 05/27/18 Rx naproxen sodium 220 mg capsule 440 mg PO TID cap 05/17/18 05/27/18 History Syringes: 1cc Insulin Syringes 1 syr QPM 05/27/18 05/27/18 History with [facility] Test Strips - Freestyle 1 str BID 05/27/18 05/27/18 History Allergies Allergy/AdvReac Type Severity Reaction Status Date / Time finasteride AdvReac Mild DIZZY/ILL Verified 05/17/18 14:53 Review of Systems Review of Systems All systems reviewed & are unremarkable except as noted in HPI and below Exam Vital Signs (past 8 hours): GENERAL: Well-developed well-nourished man, looking younger than his stated age lying in hospital bed HEENT: Normocephalic, atraumatic, pupils equal and reactive to light and accommodation. Extraocular movements are intact. Neck supple, no lymphadenopathy. LUNG: Clear to auscultation bilaterally. No wheeze or crackles or rhonchi. No increased work in breathing. CV: Regular rate and rhythm. No murmurs rubs or gallops. NEURO: CRANIAL NERVES 2-12 WERE GROSSLY INTACT. No facial drooping or other abnormalities. Upper extremity and lower extremity strength is 5/5. Data Processing Manager strength is 5/5. Able to move all extremities without difficulty. I did have the patient do the [id number] maneuver, and he did seem a little uncoordinated but it is unclear his baseline. AFFECT: Alert and oriented X3. S patient's speech was a bit slow, and he did have difficulty answering questions but again, it is difficult to know his baseline. 05/27/18 16:20 05/27/18 17:44 05/27/18 18:10 Temperature 98.1 F Pulse Rate 73 64 64 Respiratory Rate 16 22 9 L Blood Pressure 168/80 H Blood Pressure [Left Arm] 138/88 H 179/89 H Pulse Oximetry 99 96 100 05/27/18 18:20 Temperature Pulse Rate 62 Respiratory Rate 16 Blood Pressure 179/89 H Blood Pressure [Left Arm] Pulse Oximetry 96 Oxygen Delivery Method Room Air Objective Labs Result Diagrams: 05/27/18 16:25 05/27/18 16:25 Labs: Laboratory Results - last 24 hr 05/27/18 05/27/18 05/27/18 16:25 16:25 16:25 WBC 8.2 RBC 4.66 Hgb 13.9 Hct 40.4 L MCV 86.6 MCH 29.9 MCHC 34.5 RDW 13.7 Plt Count 273 Neut % (Auto) 71.3 Lymph % (Auto) 21.5 L [place] % (Auto) 6.3 Eos % (Auto) 0.4 L Baso % (Auto) 0.5 Neut # (Auto) 5800 PT 11.9 INR 1.1 APTT 30 Sodium 142 Potassium 3.9 Chloride 106 Carbon Dioxide 26 BUN 18 Creatinine 1.30 H Estimated GFR 53.3 L BUN/Creatinine Ratio 13.8 Glucose 177 H Calcium 9.1 Blood Type Antibody Screen 05/27/18 16:25 WBC RBC Hgb Hct MCV MCH MCHC RDW Plt Count Neut % (Auto) Lymph % (Auto) [place] % (Auto) Eos % (Auto) Baso % (Auto) Neut # (Auto) PT INR APTT Sodium Potassium Chloride Carbon Dioxide BUN Creatinine Estimated GFR BUN/Creatinine Ratio Glucose Calcium Blood Type A Negative Antibody Screen Negative Assessment & Plan Plan: Assessment/Plan Narrative: 1. Possible CVA versus TIA. -Patient given aspirin in the emergency room. -patient certainly has multiple risk factors including diabetes and hypertension. -will refer patient for observation overnight, order echocardiogram, MRI/MRA, carotid ultrasound, telemetry - will withhold antihypertensives for now. 2. Diabetes mellitus type 2 insulin dependent -patient is taking p.o., so will continue Lantus 12 units at HS -continue glimepiride -continue statin -consider discharge on aspirin or other anti-platelet 3. Chronic kidney disease - patient did receive contrast for the CT, so will check creatinine in a.m. 4. Hypertension. - hold antihypertensives for blood pressure less than 160. 5. DVT prophylaxis- SCDs for now, patient ambulatory 6. Disposition. Refer for observation 7. Code status: Full code, discussion was had with patient. Quality VTE Deep Vein Thrombosis/Pulmonary Embolism Present on Admission: No
[2018-05-27 21:08] VITALS: O2SAT 97
[2018-05-27] MEDS: GLIMEPIRIDE 2 MG TABLET PO (21:29)
[2018-05-27] MEDS: ATORVASTATIN 20 MG TABLET PO (21:29)
[2018-05-27] MEDS: ASPIRIN EC 325 MG TABLET PO (21:29)
[2018-05-27] MEDS: INSULIN GLARGINE 100 UNIT/ML 3ML PEN 15 UNIT SUBCUT (21:30)
[2018-05-28] VITALS: BP 134/77; PULSE 51; RESP 16; TEMP 37; O2SAT 98
--- NOTE | 2018-05-28 | DI.US.S_ITS ---
PROCEDURE: US CAROTID DOPPLER BI INDICATIONS: Poss CVA TECHNIQUE: Color and pulse Doppler interrogation was performed of both carotid systems, with image documentation and velocity measurements. COMPARISON: None. FINDINGS: Stenosis calculations are based on SRU (Society of Radiologists in Ultrasound) criteria. Right side: Brachial blood pressure: 140/92 one mm Hg. Common carotid artery peak systolic velocity: 71 cm/sec. Internal carotid artery peak systolic velocity: 94 cm/sec. Internal carotid artery end diastolic velocity: 30 cm/sec. External carotid artery peak systolic velocity: 50 cm/sec. ICA/CCA peak systolic ratio: 1.32. Christian scale imaging description: Small echogenic plaque Percent internal carotid artery stenosis: Less than 50%. Vertebral artery: Flow direction is antegrade. Left side: Brachial blood pressure: Not measured Common carotid artery peak systolic velocity: 78 cm/sec. Internal carotid artery peak systolic velocity: 88 cm/sec. Internal carotid artery end diastolic velocity: 27 cm/sec. External carotid artery peak systolic velocity: 60 cm/sec. ICA/CCA peak systolic ratio: 1.12. Christian scale imaging description: Small echogenic plaques Percent internal carotid artery stenosis: Less than 50%. Vertebral artery: Flow direction is antegrade. IMPRESSION: Mild bilateral atheromatous plaque, left greater than right, no hemodynamically significant stenosis on either side. Dictated by: Cornelius Choudhury M.D. on 05/28/2018 at 11:41 Approved by: Cornelius Choudhury M.D. on 05/28/2018 at 11:43
[2018-05-28 05:57] VITALS: BP 144/75; PULSE 53; RESP 16; TEMP 36.7; O2SAT 98
[2018-05-28 08:00] VITALS: BP 140/92; PULSE 60; RESP 16; TEMP 36.8; O2SAT 97
--- NOTE | 2018-05-28 08:11 | P.PN_ITS ---
Subjective Date Patient Seen: 05/28/18 Time Patient Seen: 08:05 Interval history: Patient admitted via the emergency department yesterday with symptoms of changes in his speech consistent with a TIA. Apparently had symptoms several days ago as well that resolved completely. As of this morning speaking with him he feels like his speech is back to normal indeed he seems to be a baseline to me compared to when I saw him not too long ago in the office for his knee issue. Denies any headache or any other new issues. Exam Vital Signs (past 8 hours): - 05/28/18 05:57 Temperature 98.0 F Pulse Rate 53 L Respiratory Rate 16 Blood Pressure 144/75 H Pulse Oximetry 98 Oxygen Delivery Method Room Air Oxygen Flow Rate 0 Narrative Exam Narrative: Unremarkable Neuro General: alert, awake, oriented x3, moves all extremities, no focal motor deficits and deep tendon reflexes 2+ bilaterally Cognition: normal cognition Speech: speech normal Motor: no movement abnormalities noted Sensory Exam: no sensory deficits noted Objective Labs Result Diagrams: 05/27/18 16:25 05/27/18 16:25 Labs: Laboratory Results - last 24 hr 05/27/18 05/27/18 05/27/18 16:25 16:25 16:25 WBC 8.2 RBC 4.66 Hgb 13.9 Hct 40.4 L MCV 86.6 MCH 29.9 MCHC 34.5 RDW 13.7 Plt Count 273 Neut % (Auto) 71.3 Lymph % (Auto) 21.5 L [place] % (Auto) 6.3 Eos % (Auto) 0.4 L Baso % (Auto) 0.5 Neut # (Auto) 5800 PT 11.9 INR 1.1 APTT 30 Sodium 142 Potassium 3.9 Chloride 106 Carbon Dioxide 26 BUN 18 Creatinine 1.30 H Estimated GFR 53.3 L BUN/Creatinine Ratio 13.8 Glucose 177 H Calcium 9.1 Blood Type Antibody Screen 05/27/18 16:25 WBC RBC Hgb Hct MCV MCH MCHC RDW Plt Count Neut % (Auto) Lymph % (Auto) [place] % (Auto) Eos % (Auto) Baso % (Auto) Neut # (Auto) PT INR APTT Sodium Potassium Chloride Carbon Dioxide BUN Creatinine Estimated GFR BUN/Creatinine Ratio Glucose Calcium Blood Type A Negative Antibody Screen Negative Assessment & Plan Plan: Assessment/Plan Narrative: 1. TIA-patient with pretty classic symptoms of a TIA with risk factors for same (diabetes, hypertension, hyperlipidemia, prior history CVA). Does seem to have resolved completely. Had a unremarkable CT angiogram as part of his ED workup. Sent for MRI stroke protocol of the brain as well as echocardiogram and carotid ultrasound today to complete his workup. No evidence of dysrhythmia thus far. Continued on full-dose aspirin which was part of his outpatient regimen. 2. Hypertension-patient's numbers are adequate although perfectly controlled at this point. Given his TIA I would not want him to have any hypoperfusion or hypotension at this point. No change in medications. 3. Diabetes-patient's numbers are mostly acceptable. 1 number over 200 continue to follow with his usual insulin dosing etc 4. Patient's other medical issues appear to be stable. Continue with workup as above and unless there are significant new findings likely can be discharged later today. May or may not benefit from the addition of an additional anti thrombotic agent such as Plavix. Await results of patient's studies as above. Note: Greater than 30 minutes was spent evaluating the patient on the floor, including examining the patient, discussing clinical course with clinical and nursing staff, reviewing clinical course in the computer, preparing documentation and writing orders for continued management of care, discussing status with family as appropriate, reviewing plans for the next 24 hours with both patient/family and nursing staff as appropriate. Quality VTE Deep Vein Thrombosis/Pulmonary Embolism Present on Admission: No
[2018-05-28] MEDS: ASPIRIN EC 325 MG TABLET PO (08:12)
[2018-05-28] MEDS: GLIMEPIRIDE 2 MG TABLET PO (08:12)
[2018-05-28 09:36] VITALS: O2SAT 93
--- NOTE | 2018-05-28 09:49 | PC.NURSE ---
Pt reports no deficits from TIA and none noted at this time, except pt is slow to respond to questions. Oriented to date, place etc. CBG was 58 at 0750. Pt was not symptomatic. Legislators OJ and breakfast with follow up CBG of 147.
--- NOTE | 2018-05-28 10:19 | CM.DANOTE ---
Discharge Planning/Care Management DCP: assessment: case received, EMR reviewed and met with pt this morning 0900. Introduced self and role. Pt is a 77 year old male who admitted to care of [facility]/Dr. Bravo. PCP: Romulo Payer: [employer] MAJOR DX of TIA in setting of prior CVA and recent TIA. Workup in progress. Discussed in [facility] team meeting: PT notes therapy has not been ordered at this point. UR/RN Shankar confirms OBS status thus far. P: DCP team will follow prn as POC unfolds. Dr. Sebastian does anticipate a d/c home later today if workup results support same. CM Discharge Assessment Start: 05/28/18 10:17 Freq: Status: Active Protocol: Document 05/28/18 10:17 ITV (Rec: 05/28/18 10:18 [email or web address] [email or web address]) Discharge Planning Assessment History Provided By Patient Medical Record Is this patient on Medicare? No Prior Living Arrangements House Household Members spouse Independent with ADL's Yes Is patient alert and oriented? Yes Review Status In Process Next Review Type Continued Stay Review Discharge Planning/Care Management CM Discharge Assessment Start: 05/28/18 10:17 Freq: Status: Active Protocol: Document 05/28/18 10:17 ITV (Rec: 05/28/18 10:18 [email or web address] [email or web address]) Discharge Planning Assessment History Provided By Patient Medical Record Is this patient on Medicare? No Prior Living Arrangements House Household Members spouse Independent with ADL's Yes Is patient alert and oriented? Yes Review Status In Process Next Review Type Continued Stay Review DC Discharge Planning/Care Management CM Discharge Assessment Start: 05/28/18 10:17 Freq: Status: Active Protocol: Document 05/28/18 10:17 ITV (Rec: 05/28/18 10:18 [email or web address] [email or web address]) Discharge Planning Assessment History Provided By Patient Medical Record Is this patient on Medicare? No Prior Living Arrangements House Household Members spouse Independent with ADL's Yes Is patient alert and oriented? Yes Review Status In Process Next Review Type Continued Stay Review
[2018-05-28 16:00] VITALS: BP 151/87; PULSE 50; RESP 17; TEMP 36.1; O2SAT 98
--- NOTE | 2018-05-28 17:10 | P.DS_ITS ---
History of Present Illness Date Patient Seen: 05/28/18 Time Patient Seen: 17:05 Chief complaint: MIXING UP WORDS, SLURRING EARLIER Narrative: Patient is a 77-year-old gentleman, patient of Dr. Sebastian, who presented to the emergency room with his [id number] after being found to have slurred speech. Patient came home earlier in the afternoon, said he went to the pharmacy, and after that was noted to having nonsensical speech, mixing up words, and slurring his speech. The patient was brought to the emergency room shortly there after. Patient seems to be at his baseline per the sister-in -law at the point of my exam. Nevertheless, patient reports a few days ago he had a very similar episode. Apparently, he went to bed at that time, and woke up and was normal. Per patient he does have a history of TIAs, but no clear CVA. Per emergency room report, patient initially could not identify the date, but was able to identify place. Did not know the president. {from Dr. Bravo' H&P} Discharge Providers Date of admission: 05/27/18 17:40 Primary care physician: Butch Sebastian MD Discharge provider: Butch Sebastian MD Discharge Date: 05/28/18 Summary Discharge Diagnosis: 1. TIA 2. Type 2 diabetes on insulin 3. Chronic kidney disease, chronic renal failure stage 2 4. Hyperlipidemia 5. Hypertension 6. Personal history of stroke Hospital Course: Patient presented with neurologic symptoms as described in his history and physical. His symptoms really resolved either prior to or during his evaluation in the emergency department. Evaluation in the emergency department was unremarkable. He was admitted for observation and continued evaluation. MRI of the brain was essentially unremarkable as was carotid ultrasound. He showed no evidence of cardiac dysrhythmia on telemetry while he was being monitored. Echocardiogram also was essentially unremarkable no source of cardiac emboli seen Patient did present to the hospital taking a full 3 and 25 mg aspirin a day. Plavix will be added to this regimen to try and reduce risk of true stroke occurring. He will likely also benefit from longer duration cardiac rhythm monitoring to ensure no cardiac dysrhythmia as a possible source of or cause for cardiac emboli. Status at Discharge Functional status at discharge: independent ambulation Overall status at discharge: patient is back to baseline Exam Vital Signs (past 8 hours): - 05/28/18 09:36 Pulse Oximetry 93 Oxygen Delivery Method Room Air Oxygen Flow Rate 0 Narrative Exam Narrative: HEENT-unremarkable, normocephalic atraumatic Neck-no lymphadenopathy no bruits Lungs-clear anteriorly and posteriorly no wheezes no crackles good breath sounds Heart-regular rate and rhythm no murmur rub or gallop normal S1-S2 Abdomen-positive bowel tones soft nontender nondistended no hepatosplenomegaly no masses palpable Neuro-normal to screening exam, gait not tested Extremities-no cyanosis clubbing or edema Objective Imaging MRI - head: Radiologist's impression: BRAIN MRI: 1. No acute intracranial disease process. 2. No areas of acute or chronic infarction. 3. Moderate, diffuse cerebral volume loss. 4. Moderate periventricular and subcortical white matter chronic microvascular ischemic changes. BRAIN MR ANGIOGRAM: Negative examination. NECK MR ANGIOGRAM: 1. Less than 50% stenosis of the origins of the internal carotid arteries bilaterally. 3. Origins of the vertebral arteries are not well-visualized secondary to motion artifact and cannot be evaluated. The well visualized portions of the vertebral arteries are fully patent. Echocardiogram: Radiologist's impression: There is mild concentric left ventricular hypertrophy. The left ventricular ejection fraction is normal. The ejection fraction is estimated to be 55-60%. There are no focal wall motion abnormalities. Assessment of diastolic parameters indicates a relaxation abnormality of the left ventricle, consistent with normal filling pressures. The right ventricle is normal in size and function. Pulmonary artery pressures cannot be estimated because of the lack of a measurable TR jet velocity. The left atrial size is normal. The right atrium is moderately dilated. There is no significant valvular heart disease. The ascending aorta is mildly enlarged. The aortic arch is mildly enlarged. No obvious source for cardiac embolic CVA. Carotid US: Radiologist's impression: IMPRESSION: Mild bilateral atheromatous plaque, left greater than right, no hemodynamically significant stenosis on either side. Labs Result Diagrams: 05/27/18 16:25 05/27/18 16:25 Labs: Laboratory Results - last 24 hr 05/27/18 16:25 Blood Type A Negative Antibody Screen Negative Discharge Plan Discharge Plan Patient Disposition: Home, Self-Care Provider Discharge Instructions Diet: Diet as Tolerated Discharge Data Primary Care Provider: Butch Sebastian Attending Provider: Butch Sebastian Admit Date/Time: 05/27/18 17:40 Quality VTE Deep Vein Thrombosis/Pulmonary Embolism Present on Admission: No
[2018-05-28] MEDS: CLOPIDOGREL 75 MG TABLET PO (17:42)
--- NOTE | 2018-05-28 18:16 | PC.NURSE ---
DISCHARGE A&ox3, no slurred speech alithough responses area very slightly delayed. otherwise no acute neuro deficits noted. denies pain, numbness, dizziness, N/V. d/c in structions reviewed with pt. pt d/c off unit at approximately 1800 via wheelchair with COMPUTER EQUIPMENT INSTALLER escort.
== END 2018-05-28 18:00 | disposition home or self-care (01) ==
LOC: ED 17:36 → AC 17:41
PROVIDERS: Admitting Provider Family Medicine; Emergency Provider Emergency Medicine; PCP Internal Medicine; Visit Provider Internal Medicine
DX: R41.82 Altered mental status, unspecified (principal); E11.22 Type 2 diabetes mellitus with diabetic chronic kidney disease; I12.9 Hypertensive chronic kidney disease with stage 1 through stage 4 chronic kidney disease, or unspecified chronic kidney disease; N18.2 Chronic kidney disease, stage 2 (mild); Z79.4 Long term (current) use of insulin; E78.5 Hyperlipidemia, unspecified
CPT/HCPCS: 36591; 70496; 70498; 70553; 80048; 81003; 82075; 82962; 85025; 85610; 85730; 86850; 86900; 86901; 93005; 93306; 93880; 99217; 99219; 99283; 99285; G0378

== ENCOUNTER → 2018-07-12 09:54 | Outpatient (CLI) | payer OTHER, SELFPAY ==
[2018-07-12 10:22] LABS: Hemoglobin A1C% w Est Avg Glu 6.7 % (4.0-6.0)
[2018-07-12 10:25] LABS: Alanine Aminotransferase 26 IU/L (21-72); Albumin 3.9 g/dL (3.5-5.0); Albumin Globulin Ratio 1.5 (1.0-2.8); Alkaline Phosphatase 52 U/L (38-126); Aspartate Aminotransferase 20 IU/L (17-59); BUN Creatinine Ratio 17.3 (6-22); Bilirubin Total 0.7 mg/dL (0.2-1.3); Bilirubin Unconjugated 0.5 mg/dL (0.0-1.1); Blood Urea Nitrogen 19 mg/dL (9-20); Calcium 8.7 mg/dL (8.4-10.2); Carbon Dioxide 25 mmol/L (22-32); Chloride 110 mmol/L (98-107); Cholesterol 140 mg/dL (140-199); Estimated Glomerular Filt Rate > 60.0 mL/min (>60); Globulin 2.6 g/dL (1.7-4.1); Glucose 128 mg/dL (80-110); HDL Cholesterol 58 mg/dL (40-60); HEMOLYSIS < 15 (0-50); LDL Cholesterol Calculated 64 mg/dL (<100); Potassium 4.4 mmol/L (3.4-5.1); Sodium 144 mmol/L (137-145); Total Protein 6.5 g/dL (6.3-8.2); Triglycerides 91 mg/dL (35-150)
[2018-07-12 18:44] LABS: Creatinine Urine Random 115.9 mg/dL
[2018-07-12 18:49] LABS: Microalbumi Creatinin Ratio Ur 8.6 ug/mg CR (<30)
== END ==
PROVIDERS: PCP Internal Medicine; Visit Provider Internal Medicine
DX: E11.22 Type 2 diabetes mellitus with diabetic chronic kidney disease (principal); E11.65 Type 2 diabetes mellitus with hyperglycemia; E78.5 Hyperlipidemia, unspecified; I10 Essential (primary) hypertension; N18.3 Chronic kidney disease, stage 3 (moderate); Z79.4 Long term (current) use of insulin
CPT/HCPCS: 36415; 80048; 80061; 80076; 82043; 82570; 83036

== ENCOUNTER → 2018-07-16 12:53 | Outpatient (CLI) | payer OTHER, SELFPAY ==
--- NOTE | 2018-08-06 08:41 | PM.CARDMON.1 ---
E Commerce Developer Report Referral & Results Date Patient Seen: 07/16/18 Requesting provider: Butch Sebastian Indication: Cardiac arrhythmia Duration of monitoring (days): 14 Diary information: Patient 1 diary entry associated with sinus rhythm There were no patient triggered events Data: Minimum heart rate identified was 42 beats per minute at 01:16 on 07/22/2018 Maximum sinus heart rate was 134 beats per minute at 10:15 on 07/23/2018 Maximum overall rate was 174 beats per minute at 15:33 on 07/28/2018 during a 6 beat run of ventricular tachycardia Less than 1% of identified beats were either ventricular supraventricular in origin Patient is 16 runs of a supraventricular tachycardia longest being 16.1 sec at 126 beats per minute Impression: Patient with ventricular dysrhythmia as above including to runs of ventricular tachycardia of 4 and 6 beats respectively Patient also with rare and brief runs of what appears to be in SVT
--- NOTE | 2018-08-06 08:44 | P.HOLT.S_ITS ---
Detention Worker Report Referral & Results Date Patient Seen: 07/16/18 Requesting provider: Butch Sebastian Indication: Cardiac arrhythmia Duration of monitoring (days): 14 Diary information: Patient 1 diary entry associated with sinus rhythm There were no patient triggered events Data: Minimum heart rate identified was 42 beats per minute at 01:16 on 2017 Maximum sinus heart rate was 134 beats per minute at 10:15 on 07/23/2018 Maximum overall rate was 174 beats per minute at 15:33 on 07/28/2018 during a 6 beat run of ventricular tachycardia Less than 1% of identified beats were either ventricular supraventricular in origin Patient is 16 runs of a supraventricular tachycardia longest being 16.1 sec at 126 beats per minute Impression: Patient with ventricular dysrhythmia as above including to runs of ventricular tachycardia of 4 and 6 beats respectively Patient also with rare and brief runs of what appears to be in SVT
== END ==
PROVIDERS: PCP Internal Medicine; Visit Provider Internal Medicine
DX: G45.9 Transient cerebral ischemic attack, unspecified (principal); I49.9 Cardiac arrhythmia, unspecified
CPT/HCPCS: 0296T; 0298T

== ENCOUNTER → 2019-01-07 12:51 | Outpatient (CLI) | payer OTHER, SELFPAY ==
[2019-01-07 13:38] LABS: Hemoglobin A1C% w Est Avg Glu 6.8 % (4.0-6.0)
[2019-01-07 13:56] LABS: BUN Creatinine Ratio 9.2 (6-22); Blood Urea Nitrogen 11 mg/dL (9-20); Carbon Dioxide 26 mmol/L (22-32); Chloride 105 mmol/L (98-107); Estimated Glomerular Filt Rate 58.3 mL/min (>60); Glucose 135 mg/dL (80-110); HEMOLYSIS < 15 (0-50); Potassium 4.9 mmol/L (3.4-5.1); Sodium 141 mmol/L (137-145)
== END ==
PROVIDERS: PCP Internal Medicine; Visit Provider Internal Medicine
DX: E11.65 Type 2 diabetes mellitus with hyperglycemia (principal); N18.2 Chronic kidney disease, stage 2 (mild)
CPT/HCPCS: 36415; 80048; 83036

== ENCOUNTER → 2019-05-06 15:38 | Outpatient (CLI) | payer OTHER, SELFPAY ==
--- NOTE | 2019-05-06 15:41 | DI.MRI.S_ITS ---
PROCEDURE: MR KNEE LT WO CON INDICATIONS: Unilateral primary osteoarthritis, left knee TECHNIQUE: Noncontrast sagittal PD fast spin echo and T2 fast spin echo with fat saturation, sagittal 3-D FLASH with fat saturation; coronal T1 spin echo and PD fast spin echo with fat saturation, and axial PD fast spin echo with fat saturation through the knee. COMPARISON: None. FINDINGS: Image quality: Excellent. Menisci: Prominent myxoid degeneration involving the body of the lateral meniscus with possible extension to the superior to the surface, raising the possibility of nondisplaced subtle tear. Complex macerated tear involving the anterior horn, body and posterior horn of the medial meniscus with near complete extrusion of the medial meniscal body.. Cruciate ligaments: The anterior and posterior cruciate ligaments appear intact. Medial structures: The medial collateral ligament appears intact. The posterior oblique ligament, semimembranosus tendon insertions, oblique popliteal ligament, and meniscocapsular junction appear intact. Visualized portions of the pes anserinus tendons appear normal. No abnormal bursal fluid. Lateral structures: Thickening and intrasubstance signal change of the lateral collateral ligament in keeping with sprain, although technically indeterminate. The long and short heads of the biceps femoris tendon appear intact. The popliteus tendon appears normal; the popliteofibular ligament appears intact. The posterosuperior and anteroinferior popliteomeniscal fascicles appear intact. The arcuate and fabellofibular ligaments appear intact, on either side of the lateral inferior geniculate artery. Iliotibial band appears normal. Anterior structures: Prepatellar and superficial infrapatellar subcutaneous edema/fluid. Quadriceps tendon grossly intact. Mild proximal patellar tendinopathy. Patellar alignment is normal. No femoral trochlear dysplasia or ventral trochlear prominence. No edema in the infrapatellar fat pad. Bones and cartilage: No focal marrow contusion or discrete low signal fracture line. Within the medial compartment, full-thickness loss of femoral interarticular cartilage with subchondral marrow edema. Within the lateral compartment, diffuse low-grade surface fraying of the femoral cartilage. No focal tibial cartilage defect. Within the patellofemoral compartment, partial-thickness loss of the cartilage overlying the medial patellar facet. Diffuse surface fraying of the femoral trochlear cartilage. Joint space: Moderate joint effusion. No Smith's cyst. No specific evidence of intra-articular loose body. IMPRESSION: Complex circumferential macerated tear of the medial meniscus with near complete extrusion. Prominent myxoid degeneration of the lateral meniscus with possible nondisplaced subtle tear involving the body as described above although recommend clinical correlation since this does not meet strict MR criteria. Severe degenerative joint disease, most pronounced within the medial compartment. Mild proximal patellar tendinopathy. Moderate joint effusion. Dictated by: Romeo Tilley M.D. on 05/09/2019 at 9:34 Approved by: Romeo Tilley M.D. on 05/09/2019 at 9:42
== END ==
PROVIDERS: PCP Internal Medicine; Visit Provider Orthopaedic Surgery
DX: M17.12 Unilateral primary osteoarthritis, left knee (principal); S83.232A Complex tear of medial meniscus, current injury, left knee, initial encounter; M67.962 Unspecified disorder of synovium and tendon, left lower leg; M25.462 Effusion, left knee
CPT/HCPCS: 73721

== ENCOUNTER 2019-05-23 12:35 | Observation (INO) | payer OTHER, SELFPAY ==
--- NOTE | 2019-05-23 12:41 | DI.CT.S_ITS ---
PROCEDURE: CT HEAD/BRAIN WO CON INDICATIONS: code stroke confussion TECHNIQUE: Noncontrast 4.5 mm thick angled axial sections acquired from the foramen magnum to the vertex, with coronal and sagittal reformats. For radiation dose reduction, the following was used: automated exposure control, adjustment of mA and/or kV according to patient size. COMPARISON: [facility], CT, HEAD AND NECK ANGIO, 03/04/2017, 20:55. [facility], MR, STROKE PROTOCOL, 03/05/2017, 8:52. [facility], MR, MR STROKE, 05/28/2018, 11:26. [facility], CT, HEAD WITHOUT CONTRAST, 03/04/2017, 20:26. FINDINGS: Image quality: Excellent. CSF spaces: Basal cisterns are patent. No extra-axial fluid collections. The ventricles are symmetric in size and shape. Brain: No intracranial bleeds or masses. There is moderate to severe cerebral volume loss for age, with resultant ventricular and sulcal prominence. There are moderate to severe periventricular and deep white matter chronic small vessel ischemic changes. There is intracranial internal carotid artery atherosclerosis. Skull and face: Calvarium and visualized facial bones appear intact, without suspicious lesions. Sinuses: Visualized sinuses and mastoids are clear. IMPRESSION: 1. No acute intracranial abnormalities. 2. Cerebral volume loss and chronic microvascular ischemic changes. Dictated by: Vera Montano M.D. on 05/23/2019 at 12:44 Approved by: Vera Montano M.D. on 05/23/2019 at 12:47
[2019-05-23 12:45] VITALS: BP 163/78; PULSE 75; RESP 15; TEMP 36.7; O2SAT 100
[2019-05-23 12:50] LABS: Add Manual Diff / Slide Review NO; Basophils Absolute Auto 100 /uL (0-100); Basophils Percent Auto 0.8 % (0-2); Eosinophils Absolute Auto 0 /uL (0-450); Eosinophils Percent Auto 0.5 % (2-4); Hemoglobin 13.6 g/dL (13.5-17.5); Lymphocytes Absolute Auto 1300 /uL (1100-4500); Lymphocytes Percent Auto 15.4 % (25-40); Mean Corpuscular HGB Conc 34.1 % (30-36); Mean Corpuscular Hemoglobin 31.6 PG (26-34); Mean Corpuscular Volume 92.8 fL (80-100); Monocytes Absolute Auto 500 /uL (0-900); Monocytes Percent Auto 6.3 % (3-14); Neutrophils Absolute Auto 6400 /uL (1500-7000); Platelet Count 230 X10^3/uL (150-400); Red Blood Cell Count 4.31 X10^6/uL (4.5-5.9); Red Cell Distribution Width 14.6 % (11.6-14.8); White Blood Cell Count 8.3 X10^3/uL (4.5-11.0)
--- NOTE | 2019-05-23 12:52 | ED.NEUROSD ---
HPI - Neuro Symptoms/Deficit General Chief Complaint: Neuro Symptoms/Deficit Stated Complaint: R sided weakness Time Seen by Provider: 05/23/19 12:36 Source: patient, family and EMS Mode of arrival: EMS Limitations: no limitations History of Present Illness HPI Narrative: 78M nonsmoker with history of hypertension, diabetes, hyperlipidemia, TIAs presents by EMS for evaluation of stroke-like symptoms. He was last seen normal when he went to bed last night 9 or 10:00 p.m.. This morning upon waking his noted that he was very confused and was not speaking. It is unclear if he has had any focal weakness though EMS reports a slight decrease in hand or machine paster strength on his right side. There is no reported injury. He has had no fever or chills. He has had no changes medications. Onset (ago): hour(s) Last Observed Normal: 21:00 Timing confirmed by: spouse Location: speech History of same: Yes Severity: moderate Quality: constant Relieving factors: none Exacerbating factors: none On Anticoagulants: No Treatments Prior to Arrival: none Related Data Home Medications Medication Instructions Recorded Confirmed Syringes: 1cc Insulin Syringes 1 syr QPM 05/27/18 05/23/19 with [place] insulin syringe-needle U-100 [BD 05/23/19 05/23/19 Insulin Syringe] Previous Rx's Medication Instructions Recorded atorvastatin 20 mg tablet 20 mg PO HS #90 tab 09/01/18 clopidogrel 75 mg tablet 75 mg PO DAILY #90 tab 09/21/18 lisinopril 30 mg tablet 30 mg PO BID #180 tab 09/21/18 glimepiride 2 mg tablet 2 mg PO Q DAY #90 tab 09/27/18 Test Strips - True Metrix #100 each 12/13/18 insulin glargine (U- 100) 100 12 - 14 unit SUBCUT SEE 01/07/19 unit/mL subcutaneous solution INSTRUCTIONS #5 vial Allergies Allergy/AdvReac Type Severity Reaction Status Date / Time finasteride AdvReac Mild DIZZY/ILL Verified 05/23/19 12:45 Review of Systems Review of Systems ROS Unobtainable: Unobtainable due to medical condition [facility] Medical History Chronic renal failure, stage 2 (mild) (Chronic) 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 Yard Work) Smoking Status: Never smoker Tobacco: How many years used: 0 quit status: quit date established (Never Started) second hand exposure: Yes alcohol intake: current (Very Seldom) substance use type: does not use Family History Father Automobile accident Mother No problems noted. 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 Yard Work) Smoking Status: Never smoker Tobacco: How many years used: 0 quit status: quit date established (Never Started) second hand exposure: Yes alcohol intake: current (Very Seldom) substance use type: does not use Exam Narrative Exam Narrative: GENERAL: 78-year-old male, appears younger than stated age, in obvious distress, awake but confused and unable to communicate HEAD: Atraumatic. Normocephalic. No temporal or scalp tenderness. EYES: Pupils equal round and reactive. Extraocular motions intact. No scleral icterus. No injection or drainage. ENT: Nose without bleeding, purulent drainage or septal hematoma. NECK: Trachea midline. No JVD or lymphadenopathy. CARDIOVASCULAR: Regular rate and rhythm without murmurs, gallops, or rubs. RESPIRATORY: Clear to auscultation. Breath sounds equal bilaterally. No wheezes, rales, or rhonchi. GASTROINTESTINAL: Abdomen soft, non-tender, nondistended. No hepato-splenomegaly, or palpable masses. No guarding. EXTREMITIES: No clubbing, cyanosis, or edema. No joint tenderness, effusion, or edema noted. BACK: Nontender without deformity or crepitance. No flank tenderness. SKIN: No rash or erythema. Initial Vital Signs Initial Vital Signs: Vital Signs Temperature 98.1 F 05/23/19 12:45 Pulse Rate 75 05/23/19 12:45 Respiratory Rate 15 05/23/19 12:45 Blood Pressure 163/78 H 05/23/19 12:45 Pulse Oximetry 100 05/23/19 12:45 Scores NIH Stroke Scale Level of Conciousness: Alert, keenly responsive Ask month/age: Answers neither question correctly, aphasic, stuporous, coma Open/close eyes, close hand: Performs neither task correctly Best gaze horizontal: Normal Visual suazo: No visual loss Facial palsy: Normal symetrical movement Left arm drift: No drift for full 10 sec Right arm drift: No drift for full 10 sec Left leg drift: No drift for full 10 sec Right leg drift: No drift for full 10 sec Limb ataxia: Absent Sensory on face/arms/legs: Normal, no sensory loss Best language: Severe aphasia, not much is understood, fragmented Dysarthria: Normal Extinction or inattention: No abnormality Total NIH Stroke scale score: 6 Course Orders Ordered: ED Orders 05/23/19 12:20 Basic Metabolic Panel Stat Complete Blood Count AUTO DIFF Stat Partial Thromboplastin Time Stat Prothrombin Time INR Stat 05/23/19 12:41 CT head/brain wo con Stat 05/23/19 12:45 EKG-12 Lead Stat 05/23/19 14:15 Urine Drug Screen, Rapid Stat Urine Microscopic Stat 05/23/19 16:24 Education, smoking cessation ONGOING 05/23/19 16:26 Consult to Dietitian, Adult Routine Consult to Occupational Therapy Evaluate & Treat Consult to Physical Therapy Evaluate & Treat Consult to [employer]ent [employer] Project Manager Routine 05/23/19 16:27 Consult to Discharge Planning Routine Consult to Occupational Therapy Evaluate & Treat Consult to Physical Therapy Evaluate & Treat Consult to Speech Therapy Evaluate & Treat MR stroke Stat Education, smoking cessation ONGOING 05/24/19 07:00 Basic Metabolic Panel Routine Complete Blood Count AUTO DIFF Routine Hemoglobin A1C% w Est Avg Glu Routine Magnesium Routine EKG-12 Lead Routine Acetaminophen (Tylenol) 650 mg PO Q6HR PRN PRN Reason: As Needed for Fever/Mild Pain Hydrocodone Bitart/Acetaminophen ([place] 5/325) 1 tab PO Q4HR PRN PRN Reason: Pain, Moderate (4-6) Al Hydrox/Mg Hydrox/Simethicone (Maalox Plus) 30 ml PO Q6HR PRN PRN Reason: Dyspepsia Atorvastatin Calcium (Lipitor) 20 mg PO BEDTIME JEAN PAUL Clopidogrel Bisulfate (Plavix) 75 mg PO DAILY JEAN PAUL Dextrose (D50w) 25 gm IV PRN PRN PRN Reason: Hypoglycemia Docusate Sodium (Colace) 100 mg PO BID JEAN PAUL Enoxaparin Sodium (Lovenox) 40 mg SUBCUT DAILY JEAN PAUL Sodium Chloride (Normal Saline 0.9%) 1,000 mls @ 100 mls/hr IV CONT JEAN PAUL Insulin Aspart (Novolog Flexpen) 0 unit SUBCUT ACHS JEAN PAUL; Protocol Insulin Glargine (Lantus (Vial)) 14 unit SUBCUT BEDTIME JEAN PAUL Lisinopril (Zestril) 30 mg PO BID JEAN PAUL Ondansetron HCl (Zofran) 4 mg IV Q8HR PRN PRN Reason: Nausea And Vomiting Discontinued Medications Sodium Chloride (Normal Saline 0.9%) 1,000 mls @ 150 mls/hr IV CONT JEAN PAUL Last Admin: 05/23/19 15:57 Dose: 150 mls/hr Infusion: 05/23/19 13:58 Dose: 0 mls/hr Admin: 05/23/19 12:54 Dose: 150 mls/hr Vital Signs - 8 hr 05/23/19 12:45 05/23/19 15:03 Temperature 98.1 F 98.5 F Pulse Rate 75 71 Respiratory Rate 15 14 Blood Pressure 163/78 H 173/100 H Pulse Oximetry 100 99 MDM - Neuro Symptoms/Deficit Lab Data Result diagrams: 05/23/19 12:20 05/23/19 12:20 Lab Results 05/23/19 05/23/19 05/23/19 Range/Units 12:20 12:20 12:20 WBC 8.3 (4.5-11.0) X10^3/uL RBC 4.31 L (4.5-5.9) X10^6/uL Hgb 13.6 (13.5-17.5) g/dL Hct 40.0 L (41-53) % MCV 92.8 (80-100) fL MCH 31.6 (26-34) PG MCHC 34.1 (30-36) % RDW 14.6 (11.6-14.8) % Plt Count 230 (150-400) X10^3/uL Neut % (Auto) 77.0 H (50-75) % Lymph % (Auto) 15.4 L (25-40) % [place] % (Auto) 6.3 (3-14) % Eos % (Auto) 0.5 L (2-4) % Baso % (Auto) 0.8 (0-2) % Neut # (Auto) 6400 (6023-3495) /uL Lymph # (Auto) 1300 (6528-7958) /uL [place] # (Auto) 500 (0-900) /uL Eos # (Auto) 0 (0-450) /uL Baso # (Auto) 100 (0-100) /uL PT 11.5 (10.1-12.7) SECONDS INR 1.0 (0.9-1.3) APTT 31 (26.4-36.2) SECONDS Sodium 137 (137-145) mmol/L Potassium 4.2 (3.4-5.1) mmol/L Chloride 105 (98-107) mmol/L Carbon Dioxide 23 (22-32) mmol/L BUN 22 H (9-20) mg/dL Creatinine 1.40 H (0.66-1.25) mg/dL Estimated GFR 48.8 L (>60) mL/min BUN/Creatinine Ratio 15.7 (6-22) Glucose 306 H (80-110) mg/dL Calcium 8.8 (8.4-10.2) mg/dL Urine RBC (0-5/HPF) Urine WBC (0-5/HPF) Urine Bacteria (None) Ur Culture Indicated? Urine Opiates Screen (Negative) Ur Oxycodone Screen (Negative) Urine Methadone Screen (Negative) Ur Barbiturates Screen (Negative) U Tricyclic Antidepress (Negative) Ur Phencyclidine Scrn (Negative) Ur Amphetamines Screen (Negative) U Methamphetamines Scrn (Negative) Ur MDMA Scrn (Ecstasy) (Negative) U Benzodiazepines Scrn (Negative) Urine Cocaine Screen (Negative) U Marijuana (THC) Screen (Negative) 05/23/19 05/23/19 Range/Units 14:15 14:15 WBC (4.5-11.0) X10^3/uL RBC (4.5-5.9) X10^6/uL Hgb (13.5-17.5) g/dL Hct (41-53) % MCV (80-100) fL MCH (26-34) PG MCHC (30-36) % RDW (11.6-14.8) % Plt Count (150-400) X10^3/uL Neut % (Auto) (50-75) % Lymph % (Auto) (25-40) % [place] % (Auto) (3-14) % Eos % (Auto) (2-4) % Baso % (Auto) (0-2) % Neut # (Auto) (0436-1860) /uL Lymph # (Auto) (0363-3641) /uL [place] # (Auto) (0-900) /uL Eos # (Auto) (0-450) /uL Baso # (Auto) (0-100) /uL PT (10.1-12.7) SECONDS INR (0.9-1.3) APTT (26.4-36.2) SECONDS Sodium (137-145) mmol/L Potassium (3.4-5.1) mmol/L Chloride (98-107) mmol/L Carbon Dioxide (22-32) mmol/L BUN (9-20) mg/dL Creatinine (0.66-1.25) mg/dL Estimated GFR (>60) mL/min BUN/Creatinine Ratio (6-22) Glucose (80-110) mg/dL Calcium (8.4-10.2) mg/dL Urine RBC 5-10/hpf H (0-5/HPF) Urine WBC None seen (0-5/HPF) Urine Bacteria None seen (None) Ur Culture Indicated? Cult not indicated Urine Opiates Screen Negative (Negative) Ur Oxycodone Screen Negative (Negative) Urine Methadone Screen Negative (Negative) Ur Barbiturates Screen Negative (Negative) U Tricyclic Antidepress Negative (Negative) Ur Phencyclidine Scrn Negative (Negative) Ur Amphetamines Screen Negative (Negative) U Methamphetamines Scrn Negative (Negative) Ur MDMA Scrn (Ecstasy) Negative (Negative) U Benzodiazepines Scrn Negative (Negative) Urine Cocaine Screen Negative (Negative) U Marijuana (THC) Screen Negative (Negative) Point of Care Testing Glucose POC 335 Urine Dip Bedside Urine Glucose 500 mg/dl Bedside Urine Bilirubin - Negative Bedside Urine Ketone - Negative Urine Specific [place] 1.015 Bedside Urine Occult Blood + Bedside Urine Protein - Negative Bedside Urine Urobilinogen +/- 1mg Bedside Urine Nitrite - Negative Bedside Urine Leukocytes - Negative Esterase Discharge Plan Departure Patient Disposition: Admitted As Inpatient Clinical Impression: Stroke Qualifiers: CVA mechanism: other Qualified Code(s): I63.89 - Other cerebral infarction Discharge Date/Time: 05/23/19 14:55 Interventions: ED Discharge Assessment Last Done: 05/23/19 15:05 Referrals: Butch Sebastian MD [Primary Care Provider] - Admit Date/Time: 05/23/19 14:42 Admit Provider: Per Nava
[2019-05-23] MEDS: SODIUM CHLORIDE 0.9% 1,000 ML 150 ML IV ×2 (12:54→15:57)
[2019-05-23 12:59] LABS: Prothrombin Time 11.5 SECONDS (10.1-12.7)
[2019-05-23 13:02] LABS: PTT Partial Thromboplastin Tim 31 SECONDS (26.4-36.2)
[2019-05-23 13:07] LABS: BUN Creatinine Ratio 15.7 (6-22); Blood Urea Nitrogen 22 mg/dL (9-20); Calcium 8.8 mg/dL (8.4-10.2); Carbon Dioxide 23 mmol/L (22-32); Chloride 105 mmol/L (98-107); Estimated Glomerular Filt Rate 48.8 mL/min (>60); Glucose 306 mg/dL (80-110); HEMOLYSIS < 15 (0-50); Potassium 4.2 mmol/L (3.4-5.1); Sodium 137 mmol/L (137-145)
--- NOTE | 2019-05-23 13:12 | ED_ITS ---
HPI - Neuro Symptoms/Deficit General Chief Complaint: Neuro Symptoms/Deficit Stated Complaint: R sided weakness Time Seen by Provider: 05/23/19 12:36 Source: patient, family and EMS Mode of arrival: EMS Limitations: no limitations History of Present Illness HPI Narrative: 78M nonsmoker with history of hypertension, diabetes, hyperlipidemia, TIAs presents by EMS for evaluation of stroke-like symptoms. He was last seen normal when he went to bed last night 9 or 10:00 p.m.. This morning upon waking his noted that he was very confused and was not speaking. 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 There is no reported injury. He has had no fever or chills. He has had no changes medications. Onset (ago): hour(s) Last Observed Normal: 21:00 Timing confirmed by: spouse Location: speech History of same: Yes Severity: moderate Quality: constant Relieving factors: none Exacerbating factors: none On Anticoagulants: No Treatments Prior to Arrival: none Related Data Home Medications Medication Instructions Recorded Confirmed Syringes: 1cc Insulin Syringes 1 syr QPM 05/27/18 05/23/19 with [place] insulin syringe-needle U-100 [BD 05/23/19 05/23/19 Insulin Syringe] Previous Rx's Medication Instructions Recorded atorvastatin 20 mg tablet 20 mg PO HS #90 tab 09/01/18 clopidogrel 75 mg tablet 75 mg PO DAILY #90 tab 09/21/18 lisinopril 30 mg tablet 30 mg PO BID #180 tab 09/21/18 glimepiride 2 mg tablet 2 mg PO Q DAY #90 tab 09/27/18 Test Strips - True Metrix #100 each 12/13/18 insulin glargine (U- 100) 100 12 - 14 unit SUBCUT SEE 01/07/19 unit/mL subcutaneous solution INSTRUCTIONS #5 vial Allergies Allergy/AdvReac Type Severity Reaction Status Date / Time finasteride AdvReac Mild DIZZY/ILL Verified 05/23/19 12:45 Review of Systems Review of Systems ROS Unobtainable: Unobtainable due to medical condition [facility] Medical History Chronic renal failure, stage 2 (mild) (Chronic) 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 Yard Work) Smoking Status: Never smoker Tobacco: How many years used: 0 quit status: quit date established (Never Started) second hand exposure: Yes alcohol intake: current (Very Seldom) substance use type: does not use Family History Father Automobile accident Mother No problems noted. 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 Yard Work) Smoking Status: Never smoker Tobacco: How many years used: 0 quit status: quit date established (Never Started) second hand exposure: Yes alcohol intake: current (Very Seldom) substance use type: does not use Exam Narrative Exam Narrative: GENERAL: 78-year-old male, appears younger than stated age, in obvious distress, awake but confused and unable to communicate HEAD: Atraumatic. Normocephalic. No temporal or scalp tenderness. EYES: Pupils equal round and reactive. Extraocular motions intact. No scleral icterus. No injection or drainage. ENT: Nose without bleeding, purulent drainage or septal hematoma. NECK: Trachea midline. No JVD or lymphadenopathy. CARDIOVASCULAR: Regular rate and rhythm without murmurs, gallops, or rubs. RESPIRATORY: Clear to auscultation. Breath sounds equal bilaterally. No wheezes, rales, or rhonchi. GASTROINTESTINAL: Abdomen soft, non-tender, nondistended. No hepato- splenomegaly, or palpable masses. No guarding. EXTREMITIES: No clubbing, cyanosis, or edema. No joint tenderness, effusion, or edema noted. BACK: Nontender without deformity or crepitance. No flank tenderness. SKIN: No rash or erythema. Initial Vital Signs Initial Vital Signs: Vital Signs Temperature 98.1 F 05/23/19 12:45 Pulse Rate 75 05/23/19 12:45 Respiratory Rate 15 05/23/19 12:45 Blood Pressure 163/78 H 05/23/19 12:45 Pulse Oximetry 100 05/23/19 12:45 Scores NIH Stroke Scale Level of Conciousness: Alert, keenly responsive Ask month/age: Answers neither question correctly, aphasic, stuporous, coma Open/close eyes, close hand: Performs neither task correctly Best gaze horizontal: Normal Visual suazo: No visual loss Facial palsy: Normal symetrical movement Left arm drift: No drift for full 10 sec Right arm drift: No drift for full 10 sec Left leg drift: No drift for full 10 sec Right leg drift: No drift for full 10 sec Limb ataxia: Absent Sensory on face/arms/legs: Normal, no sensory loss Best language: Severe aphasia, not much is understood, fragmented Dysarthria: Normal Extinction or inattention: No abnormality Total NIH Stroke scale score: 6 Course Orders Ordered: ED Orders 05/23/19 12:20 Basic Metabolic Panel Stat Complete Blood Count AUTO DIFF Stat Partial Thromboplastin Time Stat Prothrombin Time INR Stat 05/23/19 12:41 CT head/brain wo con Stat 05/23/19 12:45 EKG-12 Lead Stat 05/23/19 14:15 Urine Drug Screen, Rapid Stat Urine Microscopic Stat 05/23/19 16:24 Education, smoking cessation ONGOING 05/23/19 16:26 Consult to Dietitian, Adult Routine Consult to Occupational Therapy Evaluate & Treat Consult to Physical Therapy Evaluate & Treat Consult to Zyglo Inspector Routine 05/23/19 16:27 Consult to Discharge Planning Routine Consult to Occupational Therapy Evaluate & Treat Consult to Physical Therapy Evaluate & Treat Consult to Speech Therapy Evaluate & Treat MR stroke Stat Education, smoking cessation ONGOING 05/24/19 07:00 Basic Metabolic Panel Routine Complete Blood Count AUTO DIFF Routine Hemoglobin A1C% w Est Avg Glu Routine Magnesium Routine EKG-12 Lead Routine Acetaminophen (Tylenol) 650 mg PO Q6HR PRN PRN Reason: As Needed for Fever/Mild Pain Hydrocodone Bitart/Acetaminophen ([place] 5/325) 1 tab PO Q4HR PRN PRN Reason: Pain, Moderate (4-6) Al Hydrox/Mg Hydrox/Simethicone (Maalox Plus) 30 ml PO Q6HR PRN PRN Reason: Dyspepsia Atorvastatin Calcium (Lipitor) 20 mg PO BEDTIME JEAN PAUL Clopidogrel Bisulfate (Plavix) 75 mg PO DAILY JEAN PAUL Dextrose (D50w) 25 gm IV PRN PRN PRN Reason: Hypoglycemia Docusate Sodium (Colace) 100 mg PO BID JEAN PAUL Enoxaparin Sodium (Lovenox) 40 mg SUBCUT DAILY JEAN PAUL Sodium Chloride (Normal Saline 0.9%) 1,000 mls @ 100 mls/hr IV CONT JEAN PAUL Insulin Aspart (Novolog Flexpen) 0 unit SUBCUT ACHS JEAN PAUL; Protocol Insulin Glargine (Lantus (Vial)) 14 unit SUBCUT BEDTIME JEAN PAUL Lisinopril (Zestril) 30 mg PO BID JEAN PAUL Ondansetron HCl (Zofran) 4 mg IV Q8HR PRN PRN Reason: Nausea And Vomiting Discontinued Medications Sodium Chloride (Normal Saline 0.9%) 1,000 mls @ 150 mls/hr IV CONT JEAN PAUL Last Admin: 05/23/19 15:57 Dose: 150 mls/hr Infusion: 05/23/19 13:58 Dose: 0 mls/hr Admin: 05/23/19 12:54 Dose: 150 mls/hr Vital Signs - 8 hr 05/23/19 12:45 05/23/19 15:03 Temperature 98.1 F 98.5 F Pulse Rate 75 71 Respiratory Rate 15 14 Blood Pressure 163/78 H 173/100 H Pulse Oximetry 100 99 MDM - Neuro Symptoms/Deficit Lab Data Result diagrams: 05/23/19 12:20 05/23/19 12:20 Lab Results 05/23/19 05/23/19 05/23/19 Range/Units 12:20 12:20 12:20 WBC 8.3 (4.5-11.0) X10^3/uL RBC 4.31 L (4.5-5.9) X10^6/uL Hgb 13.6 (13.5-17.5) g/dL Hct 40.0 L (41-53) % MCV 92.8 (80-100) fL MCH 31.6 (26-34) PG MCHC 34.1 (30-36) % RDW 14.6 (11.6-14.8) % Plt Count 230 (150-400) X10^3/uL Neut % (Auto) 77.0 H (50-75) % Lymph % (Auto) 15.4 L (25-40) % [place] % (Auto) 6.3 (3-14) % Eos % (Auto) 0.5 L (2-4) % Baso % (Auto) 0.8 (0-2) % Neut # (Auto) 6400 (0363-1418) /uL Lymph # (Auto) 1300 (8940-7483) /uL [place] # (Auto) 500 (0-900) /uL Eos # (Auto) 0 (0-450) /uL Baso # (Auto) 100 (0-100) /uL PT 11.5 (10.1-12.7) SECONDS INR 1.0 (0.9-1.3) APTT 31 (26.4-36.2) SECONDS Sodium 137 (137-145) mmol/L Potassium 4.2 (3.4-5.1) mmol/L Chloride 105 (98-107) mmol/L Carbon Dioxide 23 (22-32) mmol/L BUN 22 H (9-20) mg/dL Creatinine 1.40 H (0.66-1.25) mg/dL Estimated GFR 48.8 L (>60) mL/min BUN/Creatinine Ratio 15.7 (6-22) Glucose 306 H (80-110) mg/dL Calcium 8.8 (8.4-10.2) mg/dL Urine RBC (0-5/HPF) Urine WBC (0-5/HPF) Urine Bacteria (None) Ur Culture Indicated? Urine Opiates Screen (Negative) Ur Oxycodone Screen (Negative) Urine Methadone Screen (Negative) Ur Barbiturates Screen (Negative) U Tricyclic Antidepress (Negative) Ur Phencyclidine Scrn (Negative) Ur Amphetamines Screen (Negative) U Methamphetamines Scrn (Negative) Ur MDMA Scrn (Ecstasy) (Negative) U Benzodiazepines Scrn (Negative) Urine Cocaine Screen (Negative) U Marijuana (THC) Screen (Negative) 05/23/19 05/23/19 Range/Units 14:15 14:15 WBC (4.5-11.0) X10^3/uL RBC (4.5-5.9) X10^6/uL Hgb (13.5-17.5) g/dL Hct (41-53) % MCV (80-100) fL MCH (26-34) PG MCHC (30-36) % RDW (11.6-14.8) % Plt Count (150-400) X10^3/uL Neut % (Auto) (50-75) % Lymph % (Auto) (25-40) % [place] % (Auto) (3-14) % Eos % (Auto) (2-4) % Baso % (Auto) (0-2) % Neut # (Auto) (0773-3004) /uL Lymph # (Auto) (6580-9095) /uL [place] # (Auto) (0-900) /uL Eos # (Auto) (0-450) /uL Baso # (Auto) (0-100) /uL PT (10.1-12.7) SECONDS INR (0.9-1.3) APTT (26.4-36.2) SECONDS Sodium (137-145) mmol/L Potassium (3.4-5.1) mmol/L Chloride (98-107) mmol/L Carbon Dioxide (22-32) mmol/L BUN (9-20) mg/dL Creatinine (0.66-1.25) mg/dL Estimated GFR (>60) mL/min BUN/Creatinine Ratio (6-22) Glucose (80-110) mg/dL Calcium (8.4-10.2) mg/dL Urine RBC 5-10/hpf H (0-5/HPF) Urine WBC None seen (0-5/HPF) Urine Bacteria None seen (None) Ur Culture Indicated? Cult not indicated Urine Opiates Screen Negative (Negative) Ur Oxycodone Screen Negative (Negative) Urine Methadone Screen Negative (Negative) Ur Barbiturates Screen Negative (Negative) U Tricyclic Antidepress Negative (Negative) Ur Phencyclidine Scrn Negative (Negative) Ur Amphetamines Screen Negative (Negative) U Methamphetamines Scrn Negative (Negative) Ur MDMA Scrn (Ecstasy) Negative (Negative) U Benzodiazepines Scrn Negative (Negative) Urine Cocaine Screen Negative (Negative) U Marijuana (THC) Screen Negative (Negative) Point of Care Testing Glucose POC 335 Urine Dip Bedside Urine Glucose 500 mg/dl Bedside Urine Bilirubin - Negative Bedside Urine Ketone - Negative Urine Specific [place] 1.015 Bedside Urine Occult Blood + Bedside Urine Protein - Negative Bedside Urine Urobilinogen +/- 1mg Bedside Urine Nitrite - Negative Bedside Urine Leukocytes - Negative Esterase Discharge Plan Departure Patient Disposition: Admitted As Inpatient Clinical Impression: Stroke Qualifiers: CVA mechanism: other Qualified Code(s): I63.89 - Other cerebral infarction Discharge Date/Time: 05/23/19 14:55 Interventions: ED Discharge Assessment Last Done: 05/23/19 15:05 Referrals: Butch Sebastian MD [Primary Care Provider] - Admit Date/Time: 05/23/19 14:42 Admit Provider: Per Nava
--- NOTE | 2019-05-23 13:26 | PC.NURSE ---
Pt has aphasia. Not answering questions or following commands. Demonstrates good strength with independent movement of all four limbs. Per , he was up and walking independently this morning, but was unable to pour soup into a bowl. Also had difficulty putting his bathrobe on. He did answer a yes or no question when asked if he was cold, but not consistently answering questions or talking.
--- NOTE | 2019-05-23 13:56 | PC.NURSE ---
Pt fidgeting in bed and continually sitting himself up and pulling at IV line and monitoring cords. not at bedside. Moved patient to a room visible to nurse's station for patient safety. Discontinued IV fluids per verbal order of Dr. Kennedy, as patient is moving in bed and trying to pull IV.
[2019-05-23 14:31] LABS: Urine Amphetamines Negative (Negative); Urine Barbiturates Negative (Negative); Urine Benzodiazepines Negative (Negative); Urine Cocaine Negative (Negative); Urine MDMA Negative (Negative); Urine Methadone Negative (Negative); Urine Methamphetamines Negative (Negative); Urine Morphine/Opi cutoff 2000 Negative (Negative); Urine Oxycodone Negative (Negative); Urine Phencyclidine Negative (Negative); Urine Tetrahydrocannabinol Negative (Negative); Urine Tricyclic Antidepressant Negative (Negative)
[2019-05-23 14:45] LABS: Bacteria Urine None Seen; Culture Indicated Urine Cult Not Indicated; RBC Urine 5-10/HPF (0-5/HPF); WBC Urine None Seen (0-5/HPF)
[2019-05-23 15:03] VITALS: BP 173/100; PULSE 71; RESP 14; TEMP 36.9; O2SAT 99; BMI 27.0
--- NOTE | 2019-05-23 16:27 | DI.MRI.S_ITS ---
PROCEDURE: MR HEAD/BRAIN WO CON INDICATIONS: aphasia, altered mental status TECHNIQUE: Non-contrast axial T1 spin echo, axial T2 fast spin echo, sagittal and axial FLAIR, coronal T2 fast spin echo, axial gradient echo, axial diffusion and ADC through the brain. COMPARISON: [facility], CT, CT HEAD/BRAIN WO CON, 05/23/2019, 12:35. FINDINGS: Image quality: Study is significantly degraded due to patient motion. Patient terminated exam after 6 sequences.. CSF spaces: Ventricles appear symmetric in size and shape. Basal cisterns are patent. No extra-axial fluid collections. Brain: No intracranial bleeds or mass effects. There is cerebral volume loss for age. There are periventricular and deep white matter chronic small vessel ischemic changes. Brainstem appears normal. Diffusion-weighted images show no acute ischemic insults. No chronic ischemic insults. Normal intravascular flow voids are present. Skull and face: Calvarial bone marrow is normal in signal. Orbits are normal. Sinuses: Sinuses and mastoids are clear. IMPRESSION: 1. Markedly limited study due to significant patient motion and limited amount of sequences obtained. 2. No MR evidence of acute infarction or intracranial bleed. No midline shift or mass effect. 3. Diffuse atrophy and moderate periventricular white matter ischemic microangiopathic changes. Dictated by: Rell Torres M.D. on 05/23/2019 at 18:26 Approved by: Rell Torres M.D. on 05/23/2019 at 18:28
--- NOTE | 2019-05-23 17:10 | PM.HP.1 ---
History of Present Illness Date Patient Seen: 05/23/19 Time Patient Seen: 17:10 Chief complaint: R sided weakness Narrative: 78-year-old male who was brought into the emergency department by his with concerns of altered mental status. A patient and his last had contacted last evening when he went to bed. When he woke up this morning patient was confused. His was concerned that he maybe had a stroke. At that point she called 911. She noticed that he had difficult time with speaking. There was concerns by maybe the ENT that there was difficulty with right hand weakness. He was brought into the emergency department and evaluation. 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 Was unable to provide a reliable historian. History was obtained mainly from his . Patient has a history of hypertension diabetes hyperlipidemia and previous transient ischemic event with an admission to the hospital approximately a year ago. At that time he had an MRI carotid ultrasound echocardiogram telemetry monitoring. There were no significant findings of acute stroke. Mild carotid artery plaquing normal echocardiogram and no irregularity as far as telemetry monitoring goes. Patient had an EKG done in the emergency department which showed normal sinus with a.m. telemetry monitoring shows no ectopy. CT scan showed microvascular ischemic changes and no acute hemorrhage or stroke. Patient was admitted to the hospital. On a on my exam has a hard time with finding words. Not a reliable historian unsure of date time and place. He knows his doctor is Dr. Sebastian. He does recognize my medical student we saw her earlier but can't come up with the name. He is able to find words for glasses and stethoscope. But other times is unable to find other words. He does not have any focal weakness in his upper lower extremities. 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 Yard Work) Smoking Status: Never smoker Tobacco: How many years used: 0 quit status: quit date established (Never Started) second hand exposure: Yes alcohol intake: current (Very Seldom) substance use type: does not use Family & Social History Family History Father Automobile accident Mother No problems noted. Social History: household members spouse,family lives independently Yes caregiver/support person No Tobacco & Substance use: Smoking Status Never smoker alcohol intake current alcohol intake frequency holiday/special occasion Substance Use Type does not use Meds Home Medications Medication Instructions Recorded Confirmed Type Syringes: 1cc Insulin Syringes 1 syr QPM 05/27/18 05/23/19 History with [place] atorvastatin 20 mg tablet 20 mg PO HS #90 tab 09/01/18 05/23/19 Rx clopidogrel 75 mg tablet 75 mg PO DAILY #90 tab 09/21/18 05/23/19 Rx lisinopril 30 mg tablet 30 mg PO BID #180 tab 09/21/18 05/23/19 Rx glimepiride 2 mg tablet 2 mg PO Q DAY #90 tab 09/27/18 05/23/19 Rx Test Strips - True Metrix #100 each 12/13/18 05/23/19 Rx insulin glargine (U- 100) 100 12 - 14 unit SUBCUT SEE 01/07/19 05/23/19 Rx unit/mL subcutaneous solution INSTRUCTIONS #5 vial insulin syringe-needle U-100 [BD 05/23/19 05/23/19 History Insulin Syringe] Allergies Allergy/AdvReac Type Severity Reaction Status Date / Time finasteride AdvReac Mild DIZZY/ILL Verified 05/23/19 12:45 Exam Vital Signs (past 8 hours): - 05/23/19 12:45 05/23/19 15:03 Temperature 98.1 F 98.5 F Pulse Rate 75 71 Respiratory Rate 15 14 Blood Pressure 163/78 H 173/100 H Pulse Oximetry 100 99 Oxygen Delivery Method Room Air Oxygen Flow Rate 0 Narrative Exam Narrative: Gen.: Alert patient which difficulty with word finding disoriented to place time not person HEENT: Pupils equal round and reactive or mucosa is moist he is easily arousable. Neck is soft Cardio: S1-S2 regular rate and rhythm no murmurs appreciated. Respiratory: Lungs are clear to auscultation no wheezes or crackles normal respiratory effort. Abdomen: Soft nontender no rebound or guarding no liver spleen enlargement no appreciable hernias Extremities: Full range of motion no appreciable weakness no cyanosis or edema. Neurologic: Cranial nerves appear to be intact. Objective Labs Result Diagrams: 05/23/19 12:20 05/23/19 12:20 Labs: Laboratory Results - last 24 hr 05/23/19 05/23/19 05/23/19 12:20 12:20 12:20 WBC 8.3 RBC 4.31 L Hgb 13.6 Hct 40.0 L MCV 92.8 MCH 31.6 MCHC 34.1 RDW 14.6 Plt Count 230 Neut % (Auto) 77.0 H Lymph % (Auto) 15.4 L [place] % (Auto) 6.3 Eos % (Auto) 0.5 L Baso % (Auto) 0.8 Neut # (Auto) 6400 Lymph # (Auto) 1300 [place] # (Auto) 500 Eos # (Auto) 0 Baso # (Auto) 100 PT 11.5 INR 1.0 APTT 31 Sodium 137 Potassium 4.2 Chloride 105 Carbon Dioxide 23 BUN 22 H Creatinine 1.40 H Estimated GFR 48.8 L BUN/Creatinine Ratio 15.7 Glucose 306 H Calcium 8.8 Urine RBC Urine WBC Urine Bacteria Ur Culture Indicated? Urine Opiates Screen Ur Oxycodone Screen Urine Methadone Screen Ur Barbiturates Screen U Tricyclic Antidepress Ur Phencyclidine Scrn Ur Amphetamines Screen U Methamphetamines Scrn Ur MDMA Scrn (Ecstasy) U Benzodiazepines Scrn Urine Cocaine Screen U Marijuana (THC) Screen 05/23/19 05/23/19 14:15 14:15 WBC RBC Hgb Hct MCV MCH MCHC RDW Plt Count Neut % (Auto) Lymph % (Auto) [place] % (Auto) Eos % (Auto) Baso % (Auto) Neut # (Auto) Lymph # (Auto) [place] # (Auto) Eos # (Auto) Baso # (Auto) PT INR APTT Sodium Potassium Chloride Carbon Dioxide BUN Creatinine Estimated GFR BUN/Creatinine Ratio Glucose Calcium Urine RBC 5-10/hpf H Urine WBC None seen Urine Bacteria None seen Ur Culture Indicated? Cult not indicated Urine Opiates Screen Negative Ur Oxycodone Screen Negative Urine Methadone Screen Negative Ur Barbiturates Screen Negative U Tricyclic Antidepress Negative Ur Phencyclidine Scrn Negative Ur Amphetamines Screen Negative U Methamphetamines Scrn Negative Ur MDMA Scrn (Ecstasy) Negative U Benzodiazepines Scrn Negative Urine Cocaine Screen Negative U Marijuana (THC) Screen Negative Assessment & Plan Assessment & Plan narrative: Altered level of consciousness with difficulty with speech. Patient's symptoms consistent with acute cerebrovascular accident. Possibility of TIA cannot be disc lucid. He will be admitted to the hospital. He will have further workup and evaluation of his symptoms. Will order an MRI MRA angiogram of his head and neck. Patient will be placed on telemetry monitoring. Patient will have recurrent neurological evaluation occupational physical therapy and speech evaluation. He will be NPO for further evaluation of his swallow. She will be placed back on his Plavix as well as his statin. Will monitor closely his blood pressure and slightly high so will place him back on his lisinopril. He had 1 year ago an echocardiogram and a carotid artery ultrasound and I will hold off on ordering those as those were normal on his last evaluation. Will monitor closely his neurological status and hopefully he will improving will follow his MRI results. Hyperglycemia. Patient is on insulin for blood sugar control his blood sugars 300. Will write an order for Lantus insulin as well as insulin sliding scale coverage. If he tolerates a diet he will be placed on a diabetic diet. He will blood sugars checked with each meal or every q.6 hours if he is not eating. Hyperlipidemia. Patient is on atorvastatin will continue on 20 mg once daily. Hypertension blood pressure is high most likely due to his compounding neurological condition. Will lower with lisinopril. Monitor closely in gradually reduced down over the next few days. Disposition and plan patient will be admitted as an inpatient for further workup and evaluation currently he is not eating not able to provide a history. Is going to need extensive care. Most likely will require hospitalization more than 2 midnights.
[2019-05-23] MEDS: SODIUM CHLORIDE 0.9% 1,000 ML 100 ML IV (18:53)
[2019-05-23 19:35] VITALS: BP 179/95; PULSE 57; RESP 18; TEMP 37.1; O2SAT 100
--- NOTE | 2019-05-23 19:46 | PC.NURSE ---
Addendum entered by Joanie Ryder R.N. 05/23/19 22:24: Pt swallowing pills with water, no gurgling or coughing Original Note: Oriented to self and place; word finding is improving; confusion, but can follow directions for standing at bed with urinal and to perform swallow evaluation; patient diet advanced to general following bedside, RN swallow evaluation and per Dr Nava; pt denies pain; O2 PC=230%, ls clear; HRR; Tele SR; bed alarm active, call light within reach, although patient is not using call light; door open to nursing station
[2019-05-23] MEDS: DOCUSATE 100 MG CAPSULE PO (21:46)
[2019-05-23] MEDS: ATORVASTATIN 20 MG TABLET PO (21:46)
[2019-05-23] MEDS: INSULIN GLARGINE 100 UNIT/ML 10ML VIAL 14 UNIT SUBCUT (21:51)
[2019-05-23] MEDS: LISINOPRIL 10 MG TABLET 30 MG PO (21:53)
[2019-05-23 23:47] VITALS: BP 154/83; PULSE 60; RESP 20; TEMP 37; O2SAT 97
[2019-05-24] VITALS (8 sets, daily range): BP systolic 142–152; BP diastolic 74–86; PULSE 54–58; RESP 16–18; TEMP 36.9–37.1; O2SAT 94–99
--- NOTE | 2019-05-24 00:59 | PC.NURSE ---
Patient arouses easily but drowsy. Is able to respond to questions although is delayed and has difficulty finding words. On picture patient only able to identify there is a young girl in the picture. With the objects was able to name all of them except for the hammock. Able to read all sentences and words without difficulty. Knew name but not birthday and stated he is 79 (age is 78), knew the day of week but not the month or year. Knew he was in the hospital in [place]. With tactile stimuli consistently identified that RN was touching right side of body even when left was touched. Was able to correctly identify both right and left sides of body. Did seem to have slight weakness in left LE. Denies pain. NIH was 5. Breath sounds CTA with RA sat of 97%. HRR with elevated BP of 154/83. Telemetry reading earlier was SB. Denies nausea. BT present and abdomen is soft. Denies dysuria, frequency or urgency. Reportedly stands at bedside with walker to urinate in urinal. Able to turn himself in bed. Fall risk score is high and bed alarm is activated.
[2019-05-24] MEDS: SODIUM CHLORIDE 0.9% 1,000 ML 100 ML IV (01:54)
[2019-05-24 07:46] LABS: Add Manual Diff / Slide Review NO; Basophils Absolute Auto 0 /uL (0-100); Basophils Percent Auto 0.5 % (0-2); Eosinophils Absolute Auto 100 /uL (0-450); Eosinophils Percent Auto 1.2 % (2-4); Hematocrit 36.7 % (41-53); Hemoglobin 12.7 g/dL (13.5-17.5); Lymphocytes Absolute Auto 1700 /uL (1100-4500); Lymphocytes Percent Auto 27.8 % (25-40); Mean Corpuscular HGB Conc 34.4 % (30-36); Mean Corpuscular Hemoglobin 31.7 PG (26-34); Mean Corpuscular Volume 91.9 fL (80-100); Monocytes Absolute Auto 600 /uL (0-900); Monocytes Percent Auto 9.2 % (3-14); Neutrophils Absolute Auto 3800 /uL (1500-7000); Neutrophils Percent Auto 61.3 % (50-75); Platelet Count 212 X10^3/uL (150-400); Red Cell Distribution Width 14.4 % (11.6-14.8); White Blood Cell Count 6.3 X10^3/uL (4.5-11.0)
--- NOTE | 2019-05-24 07:48 | PM.PN.1 ---
Subjective Date Patient Seen: 05/24/19 Time Patient Seen: 07:48 Interval history: Patient seen and evaluated this morning. He is resting comfortably easily arousable. Speech is much more clear today. He knows it is 2019 and he is at [facility] which he did not appreciate yesterday. He cleared the bedside swallow study had dinner last night. Blood sugars are improved. Vital signs have been stable. Still has some difficulty with words and some impulsivity. He is unsure how to use a walker. Although he ambulates with assistance. Still has a 3 on his NIH stroke still. With the difficulty appreciating in finding words. Also just impulsivity. MRI was done yesterday showed no acute findings. Although difficult to complete due to the motion artifact. Exam Vital Signs (past 8 hours): - 05/24/19 04:40 Temperature 98.7 F Pulse Rate 57 L Respiratory Rate 18 Blood Pressure 152/74 H Pulse Oximetry 97 Oxygen Delivery Method Room Air Oxygen Flow Rate 0 Narrative Exam Narrative: Gen.: Alert oriented to place and person not time. Slow to answer questions. HEENT: Pupils equal round and reactive or mucosa is moist neck is supple Cardio: Regular rate and rhythm Respiratory: Normal respiratory effort Abdomen: Soft nontender no rebound no guarding Extremities: No appreciable weakness Neurologic: Difficulty with word finding is to her some impulsivity cranial nerves are intact. No appreciable weakness on lower or upper extremities Objective Labs Result Diagrams: 05/23/19 12:20 05/23/19 12:20 Labs: Laboratory Results - last 24 hr 05/23/19 05/23/19 05/23/19 12:20 12:20 12:20 WBC 8.3 RBC 4.31 L Hgb 13.6 Hct 40.0 L MCV 92.8 MCH 31.6 MCHC 34.1 RDW 14.6 Plt Count 230 Neut % (Auto) 77.0 H Lymph % (Auto) 15.4 L Chaves % (Auto) 6.3 Eos % (Auto) 0.5 L Baso % (Auto) 0.8 Neut # (Auto) 6400 Lymph # (Auto) 1300 Chaves # (Auto) 500 Eos # (Auto) 0 Baso # (Auto) 100 PT 11.5 INR 1.0 APTT 31 Sodium 137 Potassium 4.2 Chloride 105 Carbon Dioxide 23 BUN 22 H Creatinine 1.40 H Estimated GFR 48.8 L BUN/Creatinine Ratio 15.7 Glucose 306 H Calcium 8.8 Urine RBC Urine WBC Urine Bacteria Ur Culture Indicated? Urine Opiates Screen Ur Oxycodone Screen Urine Methadone Screen Ur Barbiturates Screen U Tricyclic Antidepress Ur Phencyclidine Scrn Ur Amphetamines Screen U Methamphetamines Scrn Ur MDMA Scrn (Ecstasy) U Benzodiazepines Scrn Urine Cocaine Screen U Marijuana (THC) Screen 05/23/19 05/23/19 14:15 14:15 WBC RBC Hgb Hct MCV MCH MCHC RDW Plt Count Neut % (Auto) Lymph % (Auto) Chaves % (Auto) Eos % (Auto) Baso % (Auto) Neut # (Auto) Lymph # (Auto) Chaves # (Auto) Eos # (Auto) Baso # (Auto) PT INR APTT Sodium Potassium Chloride Carbon Dioxide BUN Creatinine Estimated GFR BUN/Creatinine Ratio Glucose Calcium Urine RBC 5-10/hpf H Urine WBC None seen Urine Bacteria None seen Ur Culture Indicated? Cult not indicated Urine Opiates Screen Negative Ur Oxycodone Screen Negative Urine Methadone Screen Negative Ur Barbiturates Screen Negative U Tricyclic Antidepress Negative Ur Phencyclidine Scrn Negative Ur Amphetamines Screen Negative U Methamphetamines Scrn Negative Ur MDMA Scrn (Ecstasy) Negative U Benzodiazepines Scrn Negative Urine Cocaine Screen Negative U Marijuana (THC) Screen Negative Assessment & Plan Assessment & Plan narrative: Transient ischemic event. MRI does not show acute cerebrovascular damage. Was not able to complete an angiogram due to patient movement. His symptomatology of word-finding impulsivity difficulty with speech are better today although not back to baseline. Continue working with physical therapy occupational therapy and speech therapy today. Continue with blood pressure control statin therapy and anti-platelet therapy. Diabetes and hyperglycemia yesterday. Lantus insulin and insulin sliding scale coverage has been implemented. His blood sugars are much better this morning. Carbohydrate consistent diet he is tolerating without difficulty. Hyperlipidemia. Continue with his current statin dose. Hypertension blood pressure blood pressure today. Not quite at normal blood pressure. Will continue to slowly lower this over the next day or 2. Disposition and plan physical therapy occupational therapy speech therapy today. Continue with diet. Continue to monitor for work decline in neurological change. Cash Applications Coordinator consultation for assistance for discharge. In all likelihood I think the patient will be stable enough to go back home. Quality VTE Deep Vein Thrombosis/Pulmonary Embolism Present on Admission: No
[2019-05-24 07:59] LABS: BUN Creatinine Ratio 12.5 (6-22); Blood Urea Nitrogen 15 mg/dL (9-20); Calcium 8.5 mg/dL (8.4-10.2); Carbon Dioxide 24 mmol/L (22-32); Chloride 107 mmol/L (98-107); Estimated Glomerular Filt Rate 58.3 mL/min (>60); Glucose 88 mg/dL (80-110); HEMOLYSIS 15 (0-50); Magnesium 1.7 mg/dL (1.6-2.3); Sodium 140 mmol/L (137-145)
[2019-05-24 08:00] LABS: Hemoglobin A1C% w Est Avg Glu 6.6 % (4.0-6.0)
--- NOTE | 2019-05-24 08:53 | CM.DANOTE ---
DCP/Assessment: Reviewed chart. Patient is a 78yr old male admitted to [facility] under OBS status with right sided weakness. PCP is Dr. Sebastian. Primary payor is 1)[facility]. Met with patient explained CM/SW role. Patient alert and oriented at time of visit. Patient reports that he feels much better. Patient denies any current deficits. Therapy evaluation currently pending. Patient reports that he resides with his spouse/Launi in [place]. 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 Patient denies using any DME and drives at baseline. Patient hopeful that he will be able to go home tomorrow 05-25-19. P: Home when stable. Therapy evaluation pending. YOHANNES Adrian Discharge Planning/Care Management Advanced directive, confirm from FAMILY Start: 05/23/19 19:16 Freq: Q24H Status: Active Protocol: Document 05/23/19 19:16 JDG (Rec: 05/23/19 19:19 JDG [id number]) Advance Directive, confirm on record Time 19:18 Person contacted spouse Copy received No CM Discharge Assessment Start: 05/24/19 08:51 Freq: Status: Active Protocol: Document 05/24/19 08:52 KJS (Rec: 05/24/19 08:53 KJS [id number]) Discharge Planning Assessment Assigned Supervisor Microwave YOHANNES Adrian Contact Information Mikey Gan (spouse) [phone] Advance Directives? No Advance Directives on File No History Provided By Patient Medical Record Prior Living Arrangements House Household Members spouse family Type of transporation used prior to Drives own vehicle admit Independent with ADL's Yes Is patient alert and oriented? Yes Caregiver for Another No Barriers to Discharge No Discharge Plan Home Transportation Arrangement Family to provide transport. Additional Comment Pending Whiteboard Updated in Patient Room with Yes name and ext. # of Supervisor Microwave Review Status In Process Next Review Type Continued Stay Review
[2019-05-24] MEDS: LISINOPRIL 10 MG TABLET 30 MG PO ×2 (09:38→21:30)
[2019-05-24] MEDS: DOCUSATE 100 MG CAPSULE PO ×2 (09:38→21:29)
[2019-05-24] MEDS: ENOXAPARIN 40 MG/0.4 ML SYRINGE SUBCUT (09:39)
[2019-05-24] MEDS: CLOPIDOGREL 75 MG TABLET PO (09:39)
--- NOTE | 2019-05-24 10:00 | PT.IIE ---
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) Essential hypertension (Chronic) Hyperlipidemia with target low density lipoprotein (LDL) cholesterol less than 70 mg/dL (Chronic 03/24/17) Personal history of stroke with current residual effects (Chronic 09/03/11) Benign prostatic hyperplasia (Chronic 09/06/14) Class 1 obesity (Chronic 03/24/17) Primary osteoarthritis of both knees (Chronic 11/05/17) Primary osteoarthritis of left knee (Chronic 10/19/17) CVA (cerebral vascular accident) (Resolved) Physical Therapy Inpatient Evaluation/Re-Eval M1 PT/OT-IP Prior Functional Status Start: 05/24/19 11:38 Freq: NEEDED Status: Active Protocol: Document 05/24/19 10:00 AB (Rec: 05/24/19 11:53 AB [id number]) Medical Review Prior Functional Status Medical History Reviewed Yes Communication able to make needs known Mobility and Gait pt stated that he is independent with all mobilities and ambulation without AD Social History Household Members spouse family Living Arrangements House Number of Floors (Floors) Two Floors Number of Stairs To Enter/Railing? pt stays on main level of the house; [id number] lives in the basement no steps to enter Home Environment Standard Height Toilet Tub/Shower Home Equipment Hand Held Shower Employment Status Retired M2 PT-IP Current Condition Start: 05/24/19 11:38 Freq: NEEDED Status: Active Protocol: Document 05/24/19 10:00 AB (Rec: 05/24/19 11:53 AB [id number]) Physical Therapy Current Condition Current Condition Evaluation Date 05/24/19 Treatment Diagnosis TIA; difficulty in walking Onset Date 05/23/19 Precautions Other Precautions falls M3 PT-IP Subjective Start: 05/24/19 11:38 Freq: NEEDED Status: Active Protocol: Document 05/24/19 10:00 AB (Rec: 05/24/19 11:53 AB [id number]) Subjective Physical Therapy Visit Type Type Initial Evaluation Visit Start Time 10:00 Visit Stop Time 10:28 Total Visit Minutes 28 Number of [employer] CONSULTANT Visits 0 Physical Therapy Visit Comments Patient Comments pt agreeable to do PT Therapy Pain Assessment Pain Present Pain Present Denied Pain M4 PT-IP Mobility and Gait Start: 05/24/19 11:38 Freq: NEEDED Status: Active Protocol: Document 05/24/19 10:00 AB (Rec: 05/24/19 11:53 AB [id number]) PT-Bed Mobility Assessment Supine to Sit Supine to Sit Standby Assistance PT-Transfer Assessment Sit to and From Stand Sit to and from Stand Standby Assistance Equipment Transfer Assistive Device None Gait Belt Transfers Transfer Destination Toilet Transfer Ability Level of Assist Contact Guard Assistance Comments Mobility Comments pt ambulated from the bed to the toilet without AD CGa and cues. pt was able to complete toileting needs without assitance. ambulated from the toilet towards the sink without AD CGA and was able to maintain standing CGA while completing handwashing Gait Assessment Gait Gait Assistance Required: Standby Assistance Contact Guard Assist Distance (Feet) 250 Able to Maintain Weight Bearing Status Yes During Gait Assistive Devices Assistive Device None Gait Belt Orthotic/Prosthetic Devices or Brace: No Gait Deviations General Gait Pattern Antalgic Flexed Trunk Lateral Trunk Lean Factors Limiting Gait Function Factors Limiting Gait Function Decreased Activity Tolerance Poor Balance Poor Safety Awareness Comments Gait Comments pt with lateral trunk lean to the right; presents with antalgic gait and spouse stated that pt has a bad knee. pt confirmed stated that L knee is bad and usually has difficulty with first few steps but afterwards has no problem with ambulation. PT-Balance Assessment Sitting Balance and Reactions Static Sitting Balance Ability Good Dynamic Sitting Balance Ability Good Standing Balance and Reactions Static Standing Balance Ability Good Dynamic Standing Balance Ability Fair Device Used without AD M5 PT-IP Objective Assessments Start: 05/24/19 11:38 Freq: NEEDED Status: Active Protocol: Document 05/24/19 10:00 AB (Rec: 05/24/19 11:53 AB [id number]) Orientation Orientation/Cognition Level of Alertness Alert Orientation Name Age Birthday Month Year Place Situation Language Function Ability No Deficits Noted Safety Awareness Understands Safety Issues Gross Range of Motion Lower Extremity ROM Assessment Within Functional Limits Strength Lower Extremity Strength Assessment Within Functional Limits Sensation Assessment Sensation Gross Sensation WNL Muscle Tone Muscle Tone WNL Yes M6 PT-IP Treatment Start: 05/24/19 11:38 Freq: NEEDED Status: Active Protocol: Document 05/24/19 10:00 AB (Rec: 05/24/19 11:53 AB [id number]) Physical Therapy Treatment Education Education Provided Safety M7 PT-IP Assessment and Plan Start: 05/24/19 11:38 Freq: NEEDED Status: Active Protocol: Document 05/24/19 10:00 AB (Rec: 05/24/19 11:53 AB [id number]) PT Summary Assessment and Plan Potential Rehabilitation Potential Good Status of Condition at Evaluation Stable Summary Impairments Balance Bed Mobility Transfers Gait Activity Tolerance Assessment Summary pt requiring SBA to CGA with mobility. pt has balance issues due to chronic L knee problem affecting mobility. pt plans to go home with spouse to assist him. Goals Bed Mobility Goal Independent Transfer Goal Independent Gait Goal Independent Gait Distance 300 Days to Meet Goals 3 Frequency of Treatment Frequency Of Treatment Once a Day Treatment Plan Physical Therapy Treatment Plan Bed Mobility Training Transfer Training Gait Training Therapeutic Exercise Balance Retraining Discharge Planning Neuromuscular Re-ed Coordination Retraining Other Recommendations and Next Treatment ambulation, standing balance/ Focus tolerance Recommendations To Nursing Amount of Assist Needed 1 Person Assist Discharge Recommendations PT Discharge Recommendations Home with Assistance
--- NOTE | 2019-05-24 12:34 | ST.IPIE ---
Care Team Visit Care Team Role Provider Type Butch Sebastian MD Primary Care Provider Physician Specialty: Internal Medicine Address: [address] [place] [address], [id number] Email: 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) Essential hypertension (Chronic Medical) Hyperlipidemia with target low density lipoprotein (LDL) cholesterol less than 70 mg/dL (Chronic Medical 03/24/17) Personal history of stroke with current residual effects (Chronic Medical 09/03/11) Benign prostatic hyperplasia (Chronic Medical 09/06/14) Class 1 obesity (Chronic Medical 03/24/17) Primary osteoarthritis of both knees (Chronic Medical 11/05/17) Primary osteoarthritis of left knee (Chronic Medical 10/19/17) CVA (cerebral vascular accident) (Resolved Medical) ST IP Initial Evaulation Report 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 Per Nava Reason for Referral Alterned mental status with WFD Language Evaluation Assessment Type Speech-Language, Cognitive communication screening Past Medical History Patient History 78-year-old male who was brought into the emergency department by his with concerns of altered mental status and possible stroke. She noticed that he had difficult time with speaking. There was concerns by maybe the ENT that there was difficulty with right hand weakness. He was brought into the emergency department and evaluation. 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 Was unable to provide a reliable historian. History was obtained mainly from his . MRI does not show acute cerebrovascular damage. Determined to be TIA. Patient has a history of hypertension diabetes hyperlipidemia and previous transient ischemic event with an admission to the hospital approximately a year ago. Hearing Hearing Level Normal Vision Vision Status Not Impaired Educational Status Education Level 2 yrs at [employer] Previous Therapy Previous Speech-Language Therapy None reported Subjective Subjective The pt was awake in bed with TV on and empty breakfast tray on bedside table. The pt passed Nsg swallow screen yesterday. He consumed 100% of breakfast with no complaints of swallow difficulty. None observed by Nsg. - Informal Assessment Receptive Language Normal Yes Expressive Language Normal Yes Articulation Normal Yes Cognition Normal No Assessment Findings The pt presents with at least a mild-moderate cognitive deficit, possibly greater. Pt scored 12/30 on SLUMS cognitive screening tool (25 = Normal). Expressive and receptive language and speech intelligibility appear to be back to baseline. Recommendations Continued assessment and treatment of cognitive communication skills during hospital stay with follow-up in outpatient clinic after hospital discharge. Formal Assessment Standardized Test SLUMS Administration Complete Raw Score 12/30 Results Cognitive Communication: Pt was oriented x3, able to follow 1- and 2-step commands. Deficits in areas of immediate and delayed memory (5-item list and story recall), mental flexibility (simple addition/ subtraction, reverse number ordering), and execitive functions (clock drawing). The pt was orientated to day, year, and state, able to draw X in triangle, identify largest of 3 objects, and name 10 animals in 60 sec. Speech-Language: Pt participated apprpriately in conversation, able to tell what brought him to the hospital and report a number of previous similar events. He exhibited no WFDs in spontaneous speech and structured tasks (with exception of moderately low number of animals named in 60 sec). He was able to follow 1- and 2-step directions, respond appropriately to questions, read words, phrases and sentences, and write his full name and a simple sentence based on [place] picture with 1 error in spelling. - Receptive Language Yes/No Questions Skill Level WNL Following Directions - Verbal Skill Level WFL Auditory Comprehension Skill Level WNL Reading Comprehension Skill Level WFL Comments Words, phrases, sentences only tested - Expressive Language Automatic Speech Skill Level WNL Comments Days of Week Object Naming Skill Level WNL Oral Expression Skill Level WFL Written Expression Skill Level WFL - Findings Language Findings Pt appears to be at or near baseline. Recommendations Recommendations Continue to monitor during cognitive communication treatment. Treatment Goals Short Term Goals The pt will complete simple to moderately complex memory exercises to increase ability to recall information pertinent to medical care in order to participate in therapeutic tasks and conversations/decisions related to his medical care. Pt will complete functional problem-solving tasks to increase/maintain independence and safety in his functional environment. Recommend follow up with outpatient Speech Therapy for more thorough evaluation and treatment after hospital discharge. Fci Goals The pt demonstrate cognitive communication skills sufficient to participate in conversations/decisions related to his medical care.
--- NOTE | 2019-05-24 12:44 | OT.IP.EVAL ---
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) Essential hypertension (Chronic) Hyperlipidemia with target low density lipoprotein (LDL) cholesterol less than 70 mg/dL (Chronic 03/24/17) Personal history of stroke with current residual effects (Chronic 09/03/11) Benign prostatic hyperplasia (Chronic 09/06/14) Class 1 obesity (Chronic 03/24/17) Primary osteoarthritis of both knees (Chronic 11/05/17) Primary osteoarthritis of left knee (Chronic 10/19/17) CVA (cerebral vascular accident) (Resolved) Occupational Therapy Inpatient Evaluation/Re-Eval M1 PT/OT-IP Prior Functional Status Start: 05/24/19 12:33 Freq: NEEDED Status: Active Protocol: Document 05/24/19 12:33 [facility] (Rec: 05/24/19 12:44 [facility] [id number]) Medical Review Prior Functional Status Medical History Reviewed Yes Diet/Fluid Consistency Regular Thin Liquids Communication able to make needs known Mobility and Gait pt stated that he is independent with all mobilities and ambulation without AD Activities of Daily Living and IADL's Pt states was independent. Prior Functional Level (Other details) Pt states still driving. Social History Household Members spouse family Living Arrangements House Number of Floors (Floors) Two Floors Number of Stairs To Enter/Railing? pt stays on main level of the house; [id number] lives in the basement no steps to enter Home Environment Standard Height Toilet Tub/Shower Home Equipment Hand Held Shower Employment Status Retired Additional Social History Comment pt's states plans to get a shower stool or chair. M2 OT-IP Current Condition Start: 05/24/19 12:33 Freq: Status: Active Protocol: Document 05/24/19 12:33 [facility] (Rec: 05/24/19 12:44 [facility] [email or web address]) Occupational Therapy Current Condition Current Condition Evaluation Date 05/24/19 Treatment Diagnosis TIA, weakness Diagnosis Onset Date 05/23/19 Weight Bearing Status Weight Bearing Status Weight Bear as Tolerated M3 OT- IP Subjective and Pain Start: 05/24/19 12:33 Freq: Status: Active Protocol: Document 05/24/19 12:33 [facility] (Rec: 05/24/19 12:44 [facility] [email or web address]) OT- Subjective Occupational Therapy Visit Type Type Initial Evaluation Visit Start Time 11:35 Visit Stop Time 12:10 Total Visit Minutes 35 Occupational Therapy Visit Comments Patient Comments Pt agreeable to do OT eval. Patient/Caregiver Goals Pt wanting to go home. OT Pain Assessment Pain When Pain Assessed At Rest Pain Present Pain Present Denied Pain M4 OT- IP ADL's Start: 05/24/19 12:33 Freq: Status: Active Protocol: Document 05/24/19 12:33 [facility] (Rec: 05/24/19 12:44 [facility] [email or web address]) OT GAA-Zjze-Peaghew General Evaluation Self-Feeding Ability Independent OT ADL-Bathing Comments OT Bathing Comments Pt not wanting to shower today . M5 OT- IP IADL's Start: 05/24/19 12:33 Freq: Status: Active Protocol: Document 05/24/19 12:33 [facility] (Rec: 05/24/19 12:44 [facility] [email or web address]) OT-Instrumental Activities of Daily Living Home Safety Awareness Ability to Problem Solve Emergency Unable to Problem Solve Situations Home Safety Comments Pt needing increased time for home safety awareness and after cues able to state in case of emergency, pt not able to states sequence of how to use a fire extinguisher, and did not realize what to do in case of chest pain. Medication Management Medication Management Comments Pt states has pill organizer at home. Money Management Money Management Comments Pt and both pay bills. Driving Driving Comments Pt states drives but suggested due to decreased cognition not safe to drive at this time . See comments below in cognitive factors. M6 OT- IP Functional Cognition Start: 05/24/19 12:33 Freq: Status: Active Protocol: Document 05/24/19 12:33 [facility] (Rec: 05/24/19 12:44 [facility] [email or web address]) Cognitive Factors Limiting Selfcare Function Cognitive Ability Level of Alertness Alert Patient Orientation Name Place Situation Attention Span Ability Capable of Focused Attention Capable of Sustained Attention Ability to Follow Commands Able to Follow One Step Commands Memory Description Short Term Impaired Working Impaired Safety Awareness Underestimates Need for Assistance Problem Solving Ability Unable to Identify Errors Needs Assist to Identify Solutions Executive Function Ability Unable to Switch Focus Unable to Filter Distractions Unable to Make Plans Unable to Remember Details Cognitive Comments Cognitive Assessment Comments Pt not able to complete [place] [employer] B due to highly distracted and did not remember the directions, therefore implies no driving at this time. OT- Vision and Hearing OT- Vision Assessment Visual Convergence WFL Visual [place] WFL M7 OT- IP Mobility and Balance Start: 05/24/19 12:33 Freq: Status: Active Protocol: Document 05/24/19 12:33 [facility] (Rec: 05/24/19 12:44 [facility] [email or web address]) OT-Transfer Assessment Sit to and From Stand Sit to and from Stand Standby Assistance M8 OT- IP Objective Assessments Start: 05/24/19 12:33 Freq: Status: Active Protocol: Document 05/24/19 12:33 [facility] (Rec: 05/24/19 12:44 [facility] [email or web address]) OT Gross Range of Motion Upper Extremity Range of Motion Assessment Within Functional Limits OT Strength Comments Strength Comments RUE 4-/5, LUE 4/5 OT- Coordination Assessment Upper Extremity Finger to Nose Test Within Functional Limits OT Sensation Assessment Comments Summary Comments Increased time to get words out for body part, decreased for left forearm. M9 OT- IP Assessment and Plan Start: 05/24/19 12:33 Freq: Status: Active Protocol: Document 05/24/19 12:33 [facility] (Rec: 05/24/19 12:44 [facility] [email or web address]) OT Summary Assessment and Plan Potential Rehabilitation Potential Good Analytic Complexity at Evaluation Low Summary OT Impairments Strength Functional Cognition Functional Mobility Bathing Progress Towards Goals Progressing Toward Goals Slow Progress due to Cognition Assessment Summary Pt low complexity and main barrier is decreased executive and mental flexibility, impulsive and decreased for dynamic balance. Pt when stable to go home with . Goals Bathing Goal Standby Assistance Shower Transfer Goal Standby Assistance Days to Meet Goals 1 Frequency of Treatment Frequency Of Treatment Once a Day Treatment Plan OT Treatment Plan ADL Training Functional Cognition Training Functional Mobility Patient/Family Education Discharge Planning Other Treatment Recommendations and Next shower Treatment Focus Discharge Recommendations OT Discharge Recommendations Home with Assistance Home Equipment Needs shower chair
--- NOTE | 2019-05-24 15:27 | DIET.PN ---
Dietary Progress Note Assessment: 78 yom admitted for right sided weakness. Pt with PMHX of chronic renal failure stage 2, type 2 diabetes, HTN, and hyperlipidemia. Pt reports no decrease in appetite or food intake. He reports having previous diabetes education, but does not follow any particular dietary restrictions. HT: 177.8cm WT: 86kg BMI: 27.2 Diet: Carb Consistent Labs: A1c: 6.6 Gluc: 306, 88 BUN: 22, 15 Cr: 1.4, 1.2 GFR: 48.8, 58.3 MNA: 14 (normal status) Nutrition Diagnosis: Altered nutrition related labs r/t impaired glucose metabolism, lack of previous exposure to accurate nutrition information aeb pt report, DX of diabetes, diet high in refined carbohydrates. Interventions: 1. Discussed the effects of CHO, protein, and fat on glucose control. Stressed importance of consistent carbohydrate intake at each meal and provided instructions for recommended servings/portions of CHO/pro per meal. Provided educational material. 2. Reviewed CHO counting and measuring CHO content via serving sizes and reading nutrition labels. Provided handouts. 3. Discussed HTN nutrition therapy. Discussed importance of reduced fat intake and ways to limit sodium in diet. Monitoring/Evaluations: PO intake, weight, POC blood glucose.
[2019-05-24] MEDS: INSULIN GLARGINE 100 UNIT/ML 10ML VIAL 14 UNIT SUBCUT (20:41)
[2019-05-24] MEDS: ATORVASTATIN 20 MG TABLET PO (21:28)
[2019-05-25 01:51] VITALS: BP 143/82; PULSE 51; RESP 15; TEMP 36.7; O2SAT 94
--- NOTE | 2019-05-25 04:49 | PC.NURSE ---
Assumed care of pt at 2300 on 05/24/19. Pt sleeping during hand-off report. Awakens to voice for assessment and NIH scale. NIH at MN 0. Speech clear, no word finding difficulty. Pt denies dizziness, blurred vision, headache, or difficulty thinking. at 0400 NIH 1 for not keenly alert, very drowsy but able to follow commands complete NIH without difficulty. Mod fall risk scale this shift. Bed alarm remains on. Pt has been appropriately uses call system and not impulsive this shift. Advised pt to call for staff assist with all mobility needs.
[2019-05-25 05:52] VITALS: BP 177/80; PULSE 52; RESP 16; TEMP 36.7; O2SAT 97
--- NOTE | 2019-05-25 07:30 | P.DS_ITS ---
History of Present Illness Chief complaint: R sided weakness Narrative: 78-year-old male who was brought into the emergency department by his with concerns of altered mental status. A patient and his last had contacted last evening when he went to bed. When he woke up this morning patient was confused. His was concerned that he maybe had a stroke. At that point she called 911. She noticed that he had difficult time with speaking. There was concerns by maybe the ENT that there was difficulty with right hand weakness. He was brought into the emergency department and evaluation. 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 Was unable to provide a reliable historian. History was obtained mainly from his . Patient has a history of hypertension diabetes hyperlipidemia and previous transient ischemic event with an admission to the hospital approximately a year ago. At that time he had an MRI carotid ultrasound echocardiogram telemetry monitoring. There were no significant findings of acute stroke. Mild carotid artery plaquing normal echocardiogram and no irregularity as far as telemetry monitoring goes. Patient had an EKG done in the emergency department which showed normal sinus with a.m. telemetry monitoring shows no ectopy. CT scan showed microvascular ischemic changes and no acute hemorrhage or stroke. Patient was admitted to the hospital. On a on my exam has a hard time with finding words. Not a reliable historian unsure of date time and place. He knows his doctor is Dr. Sebastian. He does recognize my medical student we saw her earlier but can't come up with the name. He is able to find words for glasses and stethoscope. But other times is unable to find other words. He does not have any focal weakness in his upper lower extremities. Discharge Providers Date of admission: 05/23/19 14:42 Discharge Date: 05/25/19 Primary care physician: Butch Sebastian MD Consults: 05/23/19 16:26 Consult to Dietitian, Adult Routine Comment: Reason For Exam: npo Consult to Occupational Therapy Evaluate & Treat Comment: Physician Instructions: Evaluate and treat Consult to Physical Therapy Evaluate & Treat Comment: Physician Instructions: Evaluate and Treat Consult to Logistics Director Routine Comment: 05/23/19 16:27 Consult to Discharge Planning Routine Comment: Consult to Occupational Therapy Evaluate & Treat Comment: Physician Instructions: Evaluate and treat Consult to Physical Therapy Evaluate & Treat Comment: Physician Instructions: Evaluate and Treat Consult to Speech Therapy Evaluate & Treat Comment: Physician Instructions: Evaluate and treat Discharge provider: Per Nava MD Summary Discharge Diagnosis: Transient ischemic event with aphasia and right-sided weakness which is resolved Insulin-dependent diabetes with hyperglycemia which has resolved Hypertension quite high which is improved Hyperlipidemia Hospital Course: Patient was admitted to the hospital after altered mental status when waking up in the morning and difficulty with word finding. Patient had a workup which included CT scan MRI and laboratory testing and telemetry monitoring. CT scan showed no acute bleed MRI showed no acute white matter changes but chronic ischemic changes. He previously had an angiogram and ultrasound of his neck which showed no carotid artery plaquing significant he also previously had an echocardiogram 1 year ago which was normal. Over the hospital stay had no signs of atrial fibrillation. Over the ensuing 48 hours patient had waxing and waning but gradual improvement of his symptoms. To the point where he was then ambulatory with mild assistance. He was eating and tolerating his diet. His speech was much more clear and he was recognizing me. His NIH stroke score by the time of discharge was at 0. During his hospital stay his blood sugars were controlled with insulin his blood pressure was controlled with antihypertensives. For stroke prevention he was continued on his anti-platelet and statin medication. Exam Vital Signs (past 8 hours): - 05/25/19 01:51 05/25/19 05:52 Temperature 98.1 F 98.0 F Pulse Rate 51 L 52 L Respiratory Rate 15 16 Blood Pressure 143/82 H 177/80 H Pulse Oximetry 94 97 Oxygen Delivery Method Room Air Oxygen Flow Rate 0 Narrative Exam Narrative: Gen.: Alert and oriented x3 no apparent distress. HEENT: NCAT PERRLA tympanic membranes are clear nares are patent oral mucosa is moist no tonsillar hypertrophy neck is supple without lymphadenopathy no thyroid enlargement. Cardio: S1-S2 regular rate and rhythm no murmurs appreciated. Respiratory: Lungs are clear to auscultation no wheezes or crackles normal respiratory effort. Abdomen: Soft nontender no rebound or guarding no liver spleen enlargement no appreciable hernias Extremities: Full range of motion no appreciable weakness no cyanosis or edema. Neurologic: Grossly intact. Objective Labs Result Diagrams: 05/24/19 07:05/24/19 07:17 Labs: Laboratory Results - last 24 hr 05/24/19 05/24/19 05/24/19 07:17 07:17 07:17 WBC 6.3 RBC 4.00 L Hgb 12.7 L Hct 36.7 L MCV 91.9 MCH 31.7 MCHC 34.4 RDW 14.4 Plt Count 212 Neut % (Auto) 61.3 Lymph % (Auto) 27.8 [place] % (Auto) 9.2 Eos % (Auto) 1.2 L Baso % (Auto) 0.5 Neut # (Auto) 3800 Lymph # (Auto) 1700 [place] # (Auto) 600 Eos # (Auto) 100 Baso # (Auto) 0 Sodium 140 Potassium 4.0 Chloride 107 Carbon Dioxide 24 BUN 15 Creatinine 1.20 Estimated GFR 58.3 L BUN/Creatinine Ratio 12.5 Glucose 88 D Hemoglobin A1c 6.6 H Calcium 8.5 Magnesium 1.7 Discharge Plan Discharge Plan Patient Disposition: Home Discharge Med Rec/Prescriptions Prescriptions: Continued atorvastatin [Lipitor] 20 mg tablet 20 mg PO HS Qty: 90 RF: 3 lisinopril 30 mg tablet 30 mg PO BID Qty: 180 RF: 3 clopidogrel 75 mg tablet 75 mg PO DAILY Qty: 90 RF: 3 glimepiride 2 mg tablet 2 mg PO Q DAY Qty: 90 RF: 3 Test Strips - True Metrix .Route .MEDSUPPLY Qty: 100 RF: 3 Lantus U-100 Insulin 100 unit/mL solution 12 - 14 unit subcut SEE INSTRUCTIONS Qty: 5 RF: 11 insulin syringe-needle U-100 [BD Insulin Syringe] 0.3 mL 29 gauge x 1/2 Syringe RF: 0 Syringes: 1cc Insulin Syringes with [place] 1 syr QPM RF: 0 Follow up/Referrals: Butch Sebastian MD [Primary Care Provider] - Visit Report/Discharge Packet Visit Report Forms: Stroke Signs & Symptoms Discharge Data Primary Care Provider: Butch Sebastian Attending Provider: Pre Nava Admit Date/Time: 05/23/19 14:42 Quality VTE Deep Vein Thrombosis/Pulmonary Embolism Present on Admission: No
[2019-05-25] MEDS: LISINOPRIL 10 MG TABLET 30 MG PO (08:57)
[2019-05-25] MEDS: CLOPIDOGREL 75 MG TABLET PO (08:57)
[2019-05-25] MEDS: ENOXAPARIN 40 MG/0.4 ML SYRINGE SUBCUT (08:57)
[2019-05-25] MEDS: DOCUSATE 100 MG CAPSULE PO (08:57)
[2019-05-25] MEDS: SODIUM CHLORIDE 0.9% FLUSH 10 ML IV (08:58)
[2019-05-25 09:00] VITALS: BP 139/78; PULSE 61; RESP 17; TEMP 36.5; O2SAT 91
--- NOTE | 2019-05-25 10:33 | OT.IP.TRT ---
Occupational Therapy Treatment Note M2 OT-IP Current Condition Start: 05/24/19 12:33 Freq: Status: Active Protocol: Document 05/24/19 12:33 [facility] (Rec: 05/24/19 12:44 [facility] [email or web address]) Occupational Therapy Current Condition Current Condition Evaluation Date 05/24/19 Treatment Diagnosis TIA, weakness Diagnosis Onset Date 05/23/19 Weight Bearing Status Weight Bearing Status Weight Bear as Tolerated M3 OT- IP Subjective and Pain Start: 05/24/19 12:33 Freq: Status: Active Protocol: Document 05/25/19 10:33 [facility] (Rec: 05/25/19 12:52 [facility] [id number]) OT- Subjective Occupational Therapy Visit Type Type Treatment Note Visit Start Time 09:27 Visit Stop Time 10:33 Total Visit Minutes 65 Notes Pt's here at end of session for education. Occupational Therapy Visit Comments Patient Comments I feel much better today. I am getting back to normal. Patient/Caregiver Goals to go home today OT Pain Assessment Pain When Pain Assessed After Treatment Pain Present Pain Present Denied Pain M4 OT- IP ADL's Start: 05/24/19 12:33 Freq: Status: Active Protocol: Document 05/25/19 10:33 [facility] (Rec: 05/25/19 12:52 [facility] [id number]) OT [id number] General Evaluation Self-Feeding Ability Independent OT ADL-Grooming General Evaluation Grooming Ability Independent Areas Needing Assistance Combing/Brushing Hair Comments OT Grooming Comments standing at sink without a device OT ADL-Oral Care General Eval Oral Care Ability Independent Devices Oral Care Devices Toothbrush Comments Oral Care Comments standing at sink without a device OT ADL-Dressing General Eval Upper Body Dressing Ability Independent Lower Body Dressing Ability Independent Areas Needing Assistance Pull-Over Shirt Button-Up Shirt/Blouse Underpants/Brief Pants/Shorts Socks Comments OT Dressing Comments No adaptive equipment needed; performs slowly. OT ADL-Toileting General Evaluation Toileting Ability Independent OT ADL-Bathing Bathing Type Bathing Type Shower General Evaluation Bathing Ability Standby Assistance Areas Needing Assistance Retrieving/Setting Up Items Devices Bathing Equipment Grab Bars Comments OT Bathing Comments Pt stood for entire shower despite cues to sit for increased safety for tasks such as washing feet and hair. Pt using grab bars consistently throughout shower . states she will look into having grab bars installed and has obtained shower seat and will encourage pt to use it. M6 OT- IP Functional Cognition Start: 05/24/19 12:33 Freq: Status: Active Protocol: Document 05/25/19 10:33 [facility] (Rec: 05/25/19 12:52 [facility] [id number]) Cognitive Factors Limiting Selfcare Function Cognitive Ability Level of Alertness Alert Attention Span Ability Capable of Focused Attention Capable of Sustained Attention Ability to Follow Commands Able to Follow One Step Commands Safety Awareness Decreased Recall of Precautions Decreased Ability to Apply Precautions Problem Solving Ability Unable to Identify Errors Needs Assist to Identify Solutions Cognitive Comments Cognitive Assessment Comments Pt performs self care tasks slowly and deliberately, ? some mildly perseverative behaviors with showering with pt repeating washing of soem areas. Pt does not follow verbal cues to decrease fall risk in shower. OT- Vision and Hearing OT- Hearing Assessment OT- Hearing Assessment WFL OT- Vision Assessment Visual Acuity WFL Glasses All The Time M7 OT- IP Mobility and Balance Start: 05/24/19 12:33 Freq: Status: Active Protocol: Document 05/25/19 10:33 [facility] (Rec: 05/25/19 12:52 [facility] [id number]) OT- Bed Mobility Assessment Rolling Type of Rolling Roll to Right Level of Assistance Independent Supine to Sit Supine to Sit Assist Independent Scooting Scooting to Edge of Bed Independent OT-Transfer Assessment Sit to and From Stand Sit to and from Stand Independent Transfers Transfer Ability Independent Standby Assistance Technique Transfer Destination Chair Shower Stall Toilet Transfer Technique Stand Step Pivot Devices Transfer Assistive Devices None Comments Mobility Comments Pt independent with toilet, chair transfers; SBA for unfamilair shower stall transfer with grab bars. OT- Gait Assessment Gait Gait Assistance Required: Independent Distance (Feet) 35 Assistive Devices Assistive Device None Comments Gait Ability Comments No loss of balance noted. OT- Balance Assessment Sitting Balance and Reactions Static Sitting Balance Ability Good Dynamic Sitting Balance Ability Good Standing Balance and Reactions Static Standing Balance Ability Good Dynamic Standing Balance Ability Good Comments Other Balance Tests/Deviations/Treatment during dressing, toileting and : standing shower M8 OT- IP Objective Assessments Start: 05/24/19 12:33 Freq: Status: Active Protocol: Document 05/24/19 12:33 [facility] (Rec: 05/24/19 12:44 [facility] [email or web address]) OT Gross Range of Motion Upper Extremity Range of Motion Assessment Within Functional Limits OT Strength Comments Strength Comments RUE 4-/5, LUE 4/5 OT- Coordination Assessment Upper Extremity Finger to Nose Test Within Functional Limits OT Sensation Assessment Comments Summary Comments Increased time to get words out for body part, decreased for left forearm. M9 OT- IP Assessment and Plan Start: 05/24/19 12:33 Freq: Status: Active Protocol: Document 05/25/19 10:33 [facility] (Rec: 05/25/19 12:52 [facility] [id number]) OT Summary Assessment and Plan Potential Rehabilitation Potential Good Summary Progress Towards Goals Safe For Discharge Goals Met Assessment Summary Pt demonstrating increased independence in basic self care and functional mobility today as described above. However, he continues to demonstrate slow speed of processing and requires increased time to complete basic morning ADLS. He has decreased insight into potential fall risks and does not follow verbal cues to increase safety in shower. Discussed this with pt's and she plans to have grab bars installed and obtain a shower seat and can provide SBA PRN for shower. Recommend pt NOT drive at present due to slow speed of processing All OT goals achieved for this admission. Pt plans to d/c home today with 24 hr assist from and S.T. followup for continued language/ cognitive assessment/tx. Frequency of Treatment Frequency Of Treatment Discharge Discharge Recommendations OT Discharge Recommendations Home with Assistance Home Equipment Needs to obtain grab bars for shower and shower seat
--- NOTE | 2019-05-25 11:37 | PC.NURSE ---
Pts NIS scale 0. He will be discharging home today. Visiting with friend at this time. Worked with OT and showered. Pt will leave after he eats lunch.
[2019-05-25 12:00] VITALS: BP 142/76; PULSE 61; RESP 16; TEMP 36.8; O2SAT 94
== END 2019-05-25 12:45 | disposition home or self-care (01) ==
LOC: ED 14:37 → AC 17:10
PROVIDERS: Admitting Provider Family Medicine; Emergency Provider Emergency Medicine; PCP Internal Medicine; Visit Provider Family Medicine
DX: G45.9 Transient cerebral ischemic attack, unspecified (principal); R29.818 Other symptoms and signs involving the nervous system; E78.5 Hyperlipidemia, unspecified; Z79.4 Long term (current) use of insulin; N18.2 Chronic kidney disease, stage 2 (mild); E11.22 Type 2 diabetes mellitus with diabetic chronic kidney disease; I12.9 Hypertensive chronic kidney disease with stage 1 through stage 4 chronic kidney disease, or unspecified chronic kidney disease; E66.9 Obesity, unspecified; E11.65 Type 2 diabetes mellitus with hyperglycemia
CPT/HCPCS: 36415; 70450; 70551; 80048; 80305; 81003; 81015; 82962; 83036; 83735; 85025; 85610; 85730; 92523; 93005; 96360; 96361; 96372; 97161; 97165; 97535; 99217; 99220; 99223; 99224; 99232; 99238; 99282; 99285; G0378; J1650

== ENCOUNTER → 2019-06-04 12:42 | Outpatient (CLI) | payer OTHER, SELFPAY ==
[2019-05-23 15:03] VITALS: BMI 27.0
[2019-06-04 13:08] LABS: Bacteria Urine None Seen; RBC Urine None Seen (0-5/HPF); WBC Urine None Seen (0-5/HPF)
[2019-06-04 13:57] LABS: Hemoglobin A1C% w Est Avg Glu 6.5 % (4.0-6.0)
[2019-06-04 13:59] LABS: Add Manual Diff / Slide Review NO; Basophils Absolute Auto 0 /uL (0-100); Basophils Percent Auto 0.5 % (0-2); Eosinophils Absolute Auto 100 /uL (0-450); Eosinophils Percent Auto 0.9 % (2-4); Hematocrit 38.7 % (41-53); Lymphocytes Absolute Auto 1200 /uL (1100-4500); Mean Corpuscular HGB Conc 33.7 % (30-36); Mean Corpuscular Hemoglobin 31.4 PG (26-34); Mean Corpuscular Volume 93.2 fL (80-100); Monocytes Absolute Auto 500 /uL (0-900); Monocytes Percent Auto 6.9 % (3-14); Neutrophils Absolute Auto 5400 /uL (1500-7000); Neutrophils Percent Auto 74.7 % (50-75); Platelet Count 287 X10^3/uL (150-400); Red Blood Cell Count 4.16 X10^6/uL (4.5-5.9); Red Cell Distribution Width 14.2 % (11.6-14.8); White Blood Cell Count 7.3 X10^3/uL (4.5-11.0)
[2019-06-04 14:14] LABS: Alanine Aminotransferase 18 IU/L (21-72); Albumin 3.9 g/dL (3.5-5.0); Albumin Globulin Ratio 1.3 (1.0-2.8); Alkaline Phosphatase 68 U/L (38-126); Aspartate Aminotransferase 19 IU/L (17-59); BUN Creatinine Ratio 12.3 (6-22); Bilirubin Total 0.6 mg/dL (0.2-1.3); Blood Urea Nitrogen 16 mg/dL (9-20); Carbon Dioxide 25 mmol/L (22-32); Chloride 107 mmol/L (98-107); Cholesterol 121 mg/dL (140-199); Estimated Glomerular Filt Rate 53.1 mL/min (>60); Globulin 2.9 g/dL (1.7-4.1); Glucose 146 mg/dL (80-110); HDL Cholesterol 52 mg/dL (40-60); HEMOLYSIS < 15 (0-50); LDL Cholesterol Calculated 54 mg/dL (<100); Potassium 4.3 mmol/L (3.4-5.1); Sodium 140 mmol/L (137-145); Total Protein 6.8 g/dL (6.3-8.2); Triglycerides 75 mg/dL (35-150)
[2019-06-06 14:03] LABS: Appearance Urine UA CLEAR; Bilirubin Urine UA NEGATIVE (NEGATIVE); Color Urine UA YELLOW; Glucose Urine UA TRACE g/dL (Negative); Ketones Urine UA NEGATIVE (NEGATIVE); Leukocyte Esterase Urine UA NEGATIVE (NEGATIVE); Nitrite Urine UA NEGATIVE (Negative); Occult Blood Urine UA NEGATIVE (Negative); Protein Urine UA NEGATIVE (Negative); Specific Gravity Urine UA 1.015 (1.000-1.035); Urobilinogen Urine UA 0.2 E.U./dL (0.2); pH Urine UA 6.5 (4.5-8.0)
[2019-06-06 15:17] LABS: Culture Indicated Urine Cult Not Indicated
== END ==
PROVIDERS: Orthopaedic Surgery; PCP Internal Medicine; Visit Provider Internal Medicine
DX: E11.22 Type 2 diabetes mellitus with diabetic chronic kidney disease (principal); I10 Essential (primary) hypertension
CPT/HCPCS: 36415; 80053; 80061; 81001; 83036; 85025

== ENCOUNTER → 2019-08-12 11:14 | Outpatient (CLI) | payer OTHER, SELFPAY ==
[2019-08-12 11:25] LABS: Bacteria Urine None Seen; RBC Urine None Seen (0-5/HPF)
[2019-08-12 12:13] LABS: Add Manual Diff / Slide Review NO; Basophils Absolute Auto 0 /uL (0-100); Basophils Percent Auto 0.8 % (0-2); Eosinophils Absolute Auto 100 /uL (0-450); Eosinophils Percent Auto 2.5 % (2-4); Hematocrit 40.3 % (41-53); Hemoglobin 13.8 g/dL (13.5-17.5); Lymphocytes Absolute Auto 1400 /uL (1100-4500); Lymphocytes Percent Auto 28.4 % (25-40); Mean Corpuscular HGB Conc 34.1 % (30-36); Mean Corpuscular Hemoglobin 31.8 PG (26-34); Mean Corpuscular Volume 93.2 fL (80-100); Monocytes Absolute Auto 500 /uL (0-900); Neutrophils Absolute Auto 2900 /uL (1500-7000); Neutrophils Percent Auto 58.3 % (50-75); Platelet Count 243 X10^3/uL (150-400); Red Blood Cell Count 4.32 X10^6/uL (4.5-5.9); Red Cell Distribution Width 14.1 % (11.6-14.8); White Blood Cell Count 4.9 X10^3/uL (4.5-11.0)
[2019-08-12 12:26] LABS: BUN Creatinine Ratio 11.8 (6-22); Blood Urea Nitrogen 13 mg/dL (9-20); Calcium 9.3 mg/dL (8.4-10.2); Carbon Dioxide 24 mmol/L (22-32); Chloride 107 mmol/L (98-107); Estimated Glomerular Filt Rate > 60.0 mL/min (>60); Glucose 101 mg/dL (80-110); HEMOLYSIS < 15 (0-50); Potassium 4.2 mmol/L (3.4-5.1); Sodium 142 mmol/L (137-145)
[2019-08-12 16:20] LABS: Appearance Urine UA CLEAR; Bilirubin Urine UA NEGATIVE (NEGATIVE); Color Urine UA YELLOW; Glucose Urine UA TRACE g/dL (Negative); Ketones Urine UA NEGATIVE (NEGATIVE); Leukocyte Esterase Urine UA NEGATIVE (NEGATIVE); Nitrite Urine UA NEGATIVE (Negative); Occult Blood Urine UA NEGATIVE (Negative); Protein Urine UA NEGATIVE (Negative); Urobilinogen Urine UA 0.2 E.U./dL (0.2)
[2019-08-12 17:00] LABS: Culture Indicated Urine Cult Not Indicated
[2019-08-12 17:01] LABS: WBC Urine 0-1/HPF (0-5/HPF)
== END ==
PROVIDERS: PCP Internal Medicine; Visit Provider Orthopaedic Surgery
DX: Z01.818 Encounter for other preprocedural examination (principal); Z01.812 Encounter for preprocedural laboratory examination; N39.9 Disorder of urinary system, unspecified; Z13.1 Encounter for screening for diabetes mellitus; R73.9 Hyperglycemia, unspecified
CPT/HCPCS: 36415; 80048; 81001; 83036; 85025

== ENCOUNTER 2019-09-13 09:20 | Day surgery (SDC) | payer OTHER, SELFPAY ==
[2019-09-06 11:38] VITALS: BMI 29.9
[2019-09-13] VITALS (11 sets, daily range): BP systolic 146–178; BP diastolic 65–89; PULSE 58–63; RESP 9–60; TEMP 36.2–36.7; O2SAT 95–97; BMI 29.9
[2019-09-13] MEDS: VANCOMYCIN 1,000 MG/200 ML PIGGYBACK 200 MG IV (10:08)
[2019-09-13] MEDS: PREGABALIN 75 MG CAPSULE PO (10:14)
[2019-09-13] MEDS: CELECOXIB 200 MG CAPSULE PO (10:14)
[2019-09-13] MEDS: ACETAMINOPHEN 325 MG TABLET 975 MG PO (10:14)
[2019-09-13] MEDS: LACTATED RINGERS 1,000 ML 42 ML IV ×2 (10:15→12:30)
--- NOTE | 2019-09-13 10:48 | PM.PREOP ---
Pre-operative Note Interval Note History & Physical reviewed/Exam performed by Physician: Yes Changes to H&P: No
--- NOTE | 2019-09-13 10:48 | PM.OP.1 ---
Operative Date/Time/Diagnoses Date of procedure: 09/13/19 Time of procedure: 11:48 Pre-op diagnosis: Left knee medial OA Post-op diagnosis: same Procedure & Clinicians Procedure: Left knee medial unicompartment replacement Same procedure as scheduled: Yes Indications: The patient has had progressively worsening left knee pain with radiographic changes consistent with arthritis. Non-operative management has failed and the patient has requested total knee replacement. The risks, benefits and alternatives to surgery were discussed with the patient prior to proceeding. Risks discussed included, but were not limited to, failure to relieve pain, stiffness, infection, nerve damage, deep venous thrombosis, pulmonary embolism, stroke, coma, heart attack, permanent paralysis and , as well as the potential need for eventual revision of the prosthetic. Surgeon: Jennifer Damon Blanket Winder Helper: Laverne Kelley Anesthesia Type: General Operative Notes Findings: Severe medial compartment arthritis, good bone, good balance Closure Type: primary Specimen(s): none sent Prosthetic devices, grafts, tissues, transplants, or devices: [employer] size femur Estimated Blood Loss (mL): 250 Blood products transfused: none Procedure in detail: The patient was seen in the pre-operative area, where the left knee was identified as the operative site and this was marked with my initials. The patient received pre-operative antibiotics, and was taken to the operating room and placed on the operative table in the supine position. After satisfactory anesthesia, a registered phlebotomist part time out was performed. The right leg was encircled with a tourniquet about the proximal thigh, and the leg was prepared from the toes to the tourniquet with ChloroPrep in the usual fashion and draped through sterile drapes. The leg was elevated and exsanguinated with Eschmark bandage and the tourniquet inflated to [250] mmHg pressure. The knee was approached through an approximately 10 cm incision medial parapatella incision and carried into the knee through a medial parapatellar arthrotomy. The osteophytes and medial meniscus were removed. Next, a small amount of the anterior tibial boss was carefully resected with a saw. The guide was placed along the medial joint line. It was meticulously adjusted to make sure there was appropriate slope that it was at the joint line and then was pinned to the tibia and the femur. The medial femoral condylar cut was made in extension. The tibial cut was made in flexion. The bone was meticulously irrigated with normal saline. Small amount of additional meniscus was resected posterior capsule was checked and injected with Marcaine. The extension gap was carefully checked with an 8 mm gap building equipment operator was noted that it fit well. A small number of additional osteophytes were resected. The tibia was a size [3]. It was noted that it fit without overhang. The femur was sized and it was noted to be a [C]. The appropriate cutting guide was pinned into place and carefully positioned on the femoral condyle. Drill holes were placed. The tibia was pinned into place and drill holes were made. Trial reduction with the appropriate poly showed full range of motion and good stability at 0, 45. and 90? with normal tracking of the components without edge loading. The bone was meticulously irrigated and dried. Additional Marcaine was injected. The posterior capsule was injected with 0.25% Marcaine mixed with 20 ml Exparel for post-operative pain control. The remainder of this mixture was injected into the capsule and subcutaneous tissues during cement curing. Range of motion was [0-130], with good stability throughout the range. The trials were then remove. The cement was as applied and the final prosthetics placed. Excess cement was removed during and after cement curing. A brief medial compartment Betadine soak was performed. After confirming there was no extruded cement posteriorly, the final tibial insert was placed. The knee was copiously irrigated and the tourniquet deflated. Hemostasis was obtained. The capsule was closed with interrupted Vicryl. The subcutaneous tissue was closed with barbed sutures. The skin with a running 3-0 V-Lock suture and surgical glue. An Aquacel Ag dressing was applied and the patient was taken to recovery having tolerated the procedure well. Complications: none Post-operative Condition: stable Disposition: same day surgery Plan for aftercare: The patient will be maintained on a standard total knee replacement protocol with weight bearing as tolerated. The patient will receive aspirin and sequential compression devices for DVT prophylaxis. The patient will be discharged home when safe for the home environment.
[2019-09-13] MEDS: CEFAZOLIN 2 GM/100 ML FROZ.PIGGY IV (11:09)
--- NOTE | 2019-09-13 11:42 | SUR.OPER ---
Supine on padded OR bed. Head on gel donut, arms secured on padded armboards <90 degree abduction. Safety belt across torso. Non-operative leg secured with tape over blanket over lower leg. Operative leg secured in Almas positioner. Foam padded brace at thigh of operative leg.
[2019-09-13] MEDS: BUPIVACAINE 0.25% W/ EPI 30 ML VIAL 60 ML INJ (11:58)
[2019-09-13] MEDS: BUPIVACAINE LIPOSOME 266 MG/20 ML VIAL INJ (11:59)
[2019-09-13] MEDS: SODIUM CHLORIDE IRRIG SOLUTION 250 ML, POVIDONE-IODINE SPONGE STICKS 1 APPLIC IRR (12:00)
[2019-09-13] MEDS: HYDROCODONE/ACET 5/325 TABLET 1 TAB PO (14:03)
--- NOTE | 2019-09-13 14:07 | SUR.PHASEI ---
Patient tolerating po, Gave pain medication preemptively. Patient will be discharged home.
--- NOTE | 2019-09-13 21:00 | SUR.PHASEII ---
1500 Clarified discharge orders with YOMI Carrion: Pt to perform heel slides and ankle pumps; do not place pillow under knee, place under calf; restart Plavix today; and may remove lazaro tomorrow and may wear the lazaro for comfort as needed. Discussed instructions with patient and spouse.
== END 2019-09-13 15:20 | disposition home or self-care (01) ==
PROVIDERS: Family Provider Internal Medicine; PCP Internal Medicine; Visit Provider Orthopaedic Surgery
PROC: (CPT 27446; principal; 2019-09-13 11:15)
DX: M17.12 Unilateral primary osteoarthritis, left knee (principal); E66.9 Obesity, unspecified; E78.5 Hyperlipidemia, unspecified; I10 Essential (primary) hypertension; E11.9 Type 2 diabetes mellitus without complications; Z79.4 Long term (current) use of insulin; Z68.29 Body mass index [BMI] 29.0-29.9, adult
CPT/HCPCS: 27446; 73560; C1776; C9290; J0690; J2250; J2405; J2704; J3010

== ENCOUNTER 2019-09-14 22:03 | Observation (INO) | payer OTHER, SELFPAY ==
[2019-09-14 22:10] VITALS: BP 157/86; PULSE 76; RESP 16; TEMP 37.3; O2SAT 96; BMI 30.4
--- NOTE | 2019-09-14 22:36 | PC.NURSE ---
Post op had knee surgery yesterday. Patient using walker at home and unable to safely move around house. EMS reports they were called to patients residence multiple times today. patient unable to transfer from chair to bed. Patient presents with post op dressing intact. +pedal pulse, some swelling noted, slightly warm to touch. Patient reports he is taking his pain medications but unable to tell this signwriter what time. Patient reports frustration about being in ER I have been arguing with my and sister in law who claim to know everything Patient agrees he is unable to ambulate but didn't want to come in.
--- NOTE | 2019-09-14 23:24 | PC.NURSE ---
Spoke with patient's . Patient gave this writter permission to discuss his care. Patients reports he has been unable to take care of himself or safely get around their house today. hopes he can be admitted to hospital as she can not care for him.
--- NOTE | 2019-09-14 23:31 | DI.RAD.S_ITS ---
PROCEDURE: XR KNEE LT 3V INDICATIONS: Post knee partial replacement yesterday/ now w/ multiple falls TECHNIQUE: 3 views of the knee were acquired. COMPARISON: [facility] Johann Norwood, CR, XR KNEE 4+ VIEWS LEFT, 11/17/2018, 8:35. FINDINGS: Bones: No fractures or dislocations. No suspicious bony lesions. Postsurgical changes compatible with medial condylar arthroplasty. Soft tissues: No suspicious soft tissue calcifications. Soft tissue swelling and small joint effusion are noted likely related to recent surgery. IMPRESSION: No fracture. No acute osseous lesion. If symptoms and/or clinical suspicion for pathology persists, further assessment with repeat radiographs (7-10 days) or advanced imaging (e.g. CT, MRI or bone scan) may be helpful. Dictated by: Jolie Fermin MD, PhD on 09/15/2019 at 8:33 Approved by: Jolie Fermin MD, PhD on 09/15/2019 at 8:34
--- NOTE | 2019-09-14 23:58 | ED.LOWEXIN ---
HPI - Extremity Injury (Lower) General Chief Complaint: Extremity Injury, Lower Stated Complaint: Multiple falls, s/p knee surgery Time Seen by Provider: 09/14/19 23:58 Source: patient and EMS Mode of arrival: EMS Limitations: no limitations History of Present Illness HPI Narrative: The patient underwent a left knee unicompartmental medial partial knee replacement yesterday. He has returned home, he is struggling. He uses a walker and is on pain medications. He has had multiple falls. He is using a walker when up, and using walker to pull himself up when necessary. In comes by Bryant who to left knee pain and swelling. the knee is not brace. A bandage is in place. There is redness and swelling, but he has no fever. He denies chest pain or dyspnea. He has no numbness or weakness in the leg. Related Data Home Medications Medication Instructions Recorded Confirmed Syringes: 1cc Insulin Syringes 1 syr QPM 05/27/18 07/12/19 with [place] insulin syringe-needle U-100 [BD 05/23/19 07/12/19 Insulin Syringe] aspirin 325 mg tablet 325 mg PO DAILY 07/12/19 09/13/19 clopidogrel 75 mg PO DAILY 09/13/19 09/13/19 Previous Rx's Medication Instructions Recorded lisinopril 30 mg tablet 30 mg PO BID #180 tab 09/21/18 glimepiride 2 mg tablet 2 mg PO Q DAY #90 tab 09/27/18 Test Strips - True Metrix #100 each 12/13/18 insulin glargine 100 unit/mL 12 - 14 unit SUBCUT SEE 01/07/19 subcutaneous solution INSTRUCTIONS #5 vial atorvastatin 20 mg tablet See Rx Instructions .ROUTE 09/12/19 .COMPLEX #90 tablet oxycodone 5 mg PO Q6H PRN #30 cap 09/13/19 Allergies Allergy/AdvReac Type Severity Reaction Status Date / Time finasteride AdvReac Mild DIZZY/ILL Verified 09/14/19 22:14 Review of Systems Review of Systems ROS Unobtainable: All systems reviewed & are unremarkable except as noted in HPI and below Constitutional Constitutional: Denies chills, Denies fever(s), Denies lethargy, Reports weakness and Reports other (Frequent falls) Eyes Comments: No complaints ENT Comments: No complaints Cardiovascular Cardiovascular: Denies chest pain, Denies irregular heart rhythm, Denies lightheadedness, Denies palpitations, Denies dyspnea and Denies orthopnea Respiratory Respiratory: Denies cough, Denies dyspnea and Denies wheezing Gastrointestinal Gastrointestinal: Denies abdominal pain, Denies diarrhea, Denies nausea and Denies vomiting Musculoskeletal Musculoskeletal: Denies back pain, Denies muscle weakness, Denies numbness and Denies tingling Comments: Left knee postop pain and swelling. Bilateral lower extremity weakness. Integumentary/Breasts Skin/Breast: Denies pruritus, Denies erythema (Left knee), Denies rash and Denies wounds Neurologic Neurologic: Denies numbness, Denies tingling and Reports weakness Endocrine Endocrine: Denies palpitations Allergic/Immunologic Allergic/Immunologic: Denies wheezing Patient History Medical History Benign prostatic hyperplasia (Chronic 09/06/14) Chronic renal failure, stage 2 (mild) (Chronic) Class 1 obesity (Chronic 03/24/17) CVA (cerebral vascular accident) (Resolved) Essential hypertension (Chronic) Hyperlipidemia with target low density lipoprotein (LDL) cholesterol less than 70 mg/dL (Chronic 03/24/17) Personal history of stroke with current residual effects (Chronic 09/03/11) Primary osteoarthritis of both knees (Chronic 11/05/17) Primary osteoarthritis of left knee (Chronic 10/19/17) 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 Yard Work) Smoking Status: Never smoker Tobacco: How many years used: 0 quit status: quit date established (Never Started) second hand exposure: Yes alcohol intake: current substance use type: does not use alcohol intake frequency: holidays/special occasions only Substance Use Type: does not use Exam Initial Vital Signs Initial Vital Signs: Vital Signs Temperature 99.2 F 09/14/19 22:10 Pulse Rate 76 09/14/19 22:10 Respiratory Rate 16 09/14/19 22:10 Blood Pressure 157/86 H 09/14/19 22:10 Pulse Oximetry 96 09/14/19 22:10 Const General: cooperative and well developed Nutritional Appearance: well nourished Orientation: alert, awake, oriented x3 and not confused [facility] Head: normocephalic and atraumatic Ears: external ears normal Mouth: oral mucosae normal and moist mucous membranes Throat: posterior oropharynx normal Neck Neck: No anterior neck swelling and No JVD Chest Chest: No crepitus and No tenderness Resp Effort & Inspection: normal respiratory effort and able to speak in complete sentences Auscultation: clear to auscultation bilaterally, no rales, no rhonchi and no wheezes Cardio Rate: regular rate Rhythm: regular rhythm Heart Sounds: S1 normal, S2 normal, no click, no gallops, no murmurs and no rubs Pulses: normal peripheral pulses GI Inspection: non-distended Palpation: soft, no hepatosplenomegaly, No guarding, No pulsatile mass and No tender Auscultation: normal bowel sounds Back/Spine/Pelvis Back: No CVA tenderness Cervical Spine: cervical ROM normal and No pain with cervical ROM Thoracic/Lumbar Spine: thoracic and lumbar spine normal to inspection Skin Other: Erythema and swelling to the left knee. No other rash. Neuro General: alert, oriented x3 and gait normal Speech: speech normal Other: Bilateral lower extremity weakness. Decreased range of motion left knee. Ataxia when up. Poor balance, he cannot stand without support and can be up only for a few seconds even with support.. Course Course Course Narrative: The patient presented here from home after multiple falls. He is 1 day status post left partial knee replacement. There is pain and swelling to the left knee, apparent typical postop changes. 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 Here in the ER x-ray of the left knee appears intact. he was treated with Toradol. He was assisted by nurses at bedside, attempting to stand him before and after pain medications. He is unable to support himself with a walker. I contacted on-call orthopedics, Dr. Live. The patient will be admitted. Decision to Admit Date: 09/15/19 Decision to Admit time: 06:06 Orders Ordered: ED Orders 09/14/19 23:31 XR knee LT 3V Stat 09/14/19 23:32 C-Reactive Protein Quant Stat Complete Blood Count AUTO DIFF Stat Comprehensive Metabolic Panel Stat Erythrocyte Sedimentation Rate Stat Discontinued Medications Ketorolac Tromethamine (Toradol) 15 mg IV NOW ONE Stop: 09/15/19 01:33 Last Admin: 09/15/19 01:48 Dose: 15 mg Documented by: LILLI Vital Signs Vital signs: Vital Signs - 8 hr 09/15/19 01:51 09/15/19 04:05 Pulse Rate 80 88 Respiratory Rate 18 18 Blood Pressure [Left Arm] 151/81 H 156/82 H Pulse Oximetry 96 97 MDM - Extremity Injury (Lower) Lab Data Result diagrams: 09/15/19 00:10 09/15/19 00:10 Labs: Lab Results 09/15/19 09/15/19 Range/Units 00:10 00:10 WBC 11.4 H (4.5-11.0) X10^3/uL RBC 4.08 L (4.5-5.9) X10^6/uL Hgb 13.1 L (13.5-17.5) g/dL Hct 38.0 L (41-53) % MCV 93.1 (80-100) fL MCH 32.0 (26-34) PG MCHC 34.4 (30-36) % RDW 13.8 (11.6-14.8) % Plt Count 220 (150-400) X10^3/uL Neut % (Auto) 78.2 H (50-75) % Lymph % (Auto) 10.4 L (25-40) % Moffat % (Auto) 11.2 (3-14) % Eos % (Auto) 0.0 L (2-4) % Baso % (Auto) 0.2 (0-2) % Neut # (Auto) 9000 H (2611-4461) /uL Lymph # (Auto) 1200 (9157-2683) /uL Moffat # (Auto) 1300 H (0-900) /uL Eos # (Auto) 0 (0-450) /uL Baso # (Auto) 0 (0-100) /uL ESR 13 (0-15) MM/HR Sodium 140 (137-145) mmol/L Potassium 4.2 (3.4-5.1) mmol/L Chloride 101 (98-107) mmol/L Carbon Dioxide 24 (22-32) mmol/L BUN 20 (9-20) mg/dL Creatinine 1.20 (0.66-1.25) mg/dL Estimated GFR 58.3 L (>60) mL/min BUN/Creatinine Ratio 16.7 (6-22) Glucose 174 H (80-110) mg/dL Calcium 8.7 (8.4-10.2) mg/dL Total Bilirubin 1.7 H (0.2-1.3) mg/dL AST 56 (17-59) IU/L ALT 16 (<50) IU/L Alkaline Phosphatase 68 (38-126) U/L C-Reactive Protein 7.5 H (<1.0) mg/dL Total Protein 7.3 (6.3-8.2) g/dL Albumin 4.4 (3.5-5.0) g/dL Globulin 2.9 (1.7-4.1) g/dL Albumin/Globulin Ratio 1.5 (1.0-2.8) Imaging Data Left knee x-ray:: My impression: Left knee prosthesis. No acute orthopedic changes. Discharge Plan Departure Patient Disposition: Admitted as Observation Clinical Impression: Status post left partial knee replacement, Post-op pain, Poor balance, Frequent falls Admit Date/Time: 09/15/19 06:16 Admit Provider: Mike Live
[2019-09-15] VITALS (10 sets, daily range): BP systolic 140–168; BP diastolic 73–87; PULSE 67–88; RESP 16–18; TEMP 36.6–37.7; O2SAT 96–99; BMI 30.4
[2019-09-15 00:28] LABS: Add Manual Diff / Slide Review NO; Basophils Absolute Auto 0 /uL (0-100); Basophils Percent Auto 0.2 % (0-2); Eosinophils Absolute Auto 0 /uL (0-450); Hemoglobin 13.1 g/dL (13.5-17.5); Lymphocytes Absolute Auto 1200 /uL (1100-4500); Lymphocytes Percent Auto 10.4 % (25-40); Mean Corpuscular HGB Conc 34.4 % (30-36); Mean Corpuscular Volume 93.1 fL (80-100); Monocytes Absolute Auto 1300 /uL (0-900); Monocytes Percent Auto 11.2 % (3-14); Neutrophils Absolute Auto 9000 /uL (1500-7000); Neutrophils Percent Auto 78.2 % (50-75); Platelet Count 220 X10^3/uL (150-400); Red Blood Cell Count 4.08 X10^6/uL (4.5-5.9); Red Cell Distribution Width 13.8 % (11.6-14.8); White Blood Cell Count 11.4 X10^3/uL (4.5-11.0)
[2019-09-15 00:33] LABS: Alanine Aminotransferase 16 IU/L (<50); Albumin 4.4 g/dL (3.5-5.0); Albumin Globulin Ratio 1.5 (1.0-2.8); Alkaline Phosphatase 68 U/L (38-126); Aspartate Aminotransferase 56 IU/L (17-59); BUN Creatinine Ratio 16.7 (6-22); Bilirubin Total 1.7 mg/dL (0.2-1.3); Blood Urea Nitrogen 20 mg/dL (9-20); C-Reactive Protein Quant 7.5 mg/dL (<1.0); Calcium 8.7 mg/dL (8.4-10.2); Carbon Dioxide 24 mmol/L (22-32); Chloride 101 mmol/L (98-107); Estimated Glomerular Filt Rate 58.3 mL/min (>60); Globulin 2.9 g/dL (1.7-4.1); Glucose 174 mg/dL (80-110); HEMOLYSIS < 15 (0-50); Potassium 4.2 mmol/L (3.4-5.1); Sodium 140 mmol/L (137-145); Total Protein 7.3 g/dL (6.3-8.2)
[2019-09-15 00:42] LABS: Erythrocyte Sedimentation Rate 13 MM/HR (0-15)
[2019-09-15] MEDS: KETOROLAC 60 MG/2 ML VIAL 15 MG IV (01:48)
--- NOTE | 2019-09-15 01:50 | PC.NURSE ---
He was able with assist only to get from bed to walker.He took one step,became week and unsteady.DR Almaraz notified.
--- NOTE | 2019-09-15 08:42 | PC.ADMIT ---
[email or web address] [place] [address] Admission Note: The patient,Ian Gan,78 y/o, was given written information regarding hospital policies, unit procedures and contact persons. Patient's smoking status: Never smoker. Vital Signs - 8 hr 09/15/19 01:51 09/15/19 04:05 09/15/19 06:46 Temperature Pulse Rate 80 88 80 Respiratory Rate 18 18 18 Blood Pressure Blood Pressure [Left Arm] 151/81 H 156/82 H 159/80 H Pulse Oximetry 96 97 99 09/15/19 07:36 09/15/19 07:55 Temperature 98 F Pulse Rate 77 70 Respiratory Rate 16 17 Blood Pressure 147/76 H 146/80 H Blood Pressure [Left Arm] Pulse Oximetry 99 98 PATIENT DENIES FALLS AT HOME. PER ER REPORT, HAD SEVERAL FALLS. PATIENT IS A&O TO ORIENTATION QUESTIONS. PATIENT STATES HE JUST COULDN'T GET UP OFF THE TOILET AT HOME. REPORTED SAME TO PRIMARY NURSE, CHARMAINE. BED ALARM ON, CALL LIGHT IN REACH. INSTRUCTED TO CALL FOR ASSIST OOB OR ANY OTHER NEEDS.
--- NOTE | 2019-09-15 10:23 | P.CONS_ITS ---
History of Present Illness Consult details Date Patient Seen: 09/15/19 Chief complaint: Multiple falls, s/p knee surgery Reason for consult: Weakness Requesting provider: Jennifer Damon Narrative: 78-year-old diabetic patient of mine whom I am asked to see by Orthopedic surgery regarding his return to the hospital Had a partial knee replacement done on the 14 of September. Was discharged home as is per protocol. Apparently at home he had a fall because he said he became ?weak?. He was unable to get himself up on his own medics were summoned. They managed to get him up off the floor but he refused to come to the hospital or to the clinic. Eventually he had ongoing issues with his ability to ambulate and or transfer and probably had additional falls EMS was summoned again and he was transported to [facility] ED In the emergency department he was evaluated found to have no significant injury or chills postoperative complication following his falls regarding his orthopedic surgery. He was admitted back to the orthopedic service for re- evaluation. Patient with diabetes and a recent TIA with word-finding difficulties and right arm or upper extremity weakness. His workup in the hospital for that event was unremarkable including MRI of the brain, telemetry, and he had had previous workup of his carotids etc. He was continued on Plavix as well as aspirin pre operatively as well as postoperatively by Orthopedic surgery FOR[facility], [facility] Medical History Benign prostatic hyperplasia (Chronic 09/06/14) Chronic renal failure, stage 2 (mild) (Chronic) Class 1 obesity (Chronic 03/24/17) CVA (cerebral vascular accident) (Resolved) Essential hypertension (Chronic) Hyperlipidemia with target low density lipoprotein (LDL) cholesterol less than 70 mg/dL (Chronic 03/24/17) Personal history of stroke with current residual effects (Chronic 09/03/11) Primary osteoarthritis of both knees (Chronic 11/05/17) Primary osteoarthritis of left knee (Chronic 10/19/17) 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 Yard Work) Smoking Status: Never smoker Tobacco: How many years used: 0 quit status: quit date established (Never Started) second hand exposure: Yes alcohol intake: current substance use type: does not use Meds Home Medications and Allergies Home Medications Medication Instructions Recorded Confirmed Type Syringes: 1cc Insulin Syringes 1 syr QPM 05/27/18 07/12/19 History with [place] lisinopril 30 mg tablet 30 mg PO BID #180 tab 09/21/18 09/13/19 Rx glimepiride 2 mg tablet 2 mg PO Q DAY #90 tab 09/27/18 09/13/19 Rx Test Strips - True Metrix #100 each 12/13/18 07/12/19 Rx insulin glargine 100 unit/mL 12 - 14 unit SUBCUT SEE 01/07/19 09/13/19 Rx subcutaneous solution INSTRUCTIONS #5 vial insulin syringe-needle U-100 [BD 05/23/19 07/12/19 History Insulin Syringe] aspirin 325 mg tablet 325 mg PO DAILY 07/12/19 09/13/19 History atorvastatin 20 mg tablet See Rx Instructions .ROUTE 09/12/19 09/13/19 Rx .COMPLEX #90 tablet clopidogrel 75 mg PO DAILY 09/13/19 09/13/19 History oxycodone 5 mg PO Q6H PRN #30 cap 09/13/19 Rx Allergies Allergy/AdvReac Type Severity Reaction Status Date / Time finasteride AdvReac Mild DIZZY/ILL Verified 09/14/19 22:14 Review of Systems Constitutional Constitutional: Denies excessive sweating, Denies fever(s), Denies headache(s), Reports weakness (Both arms and globally), Denies weight gain and Denies weight loss Eyes Eyes: Denies change in vision, Denies itchy eyes, Denies loss of vision and Denies other visual disturbances ENT Ears, Nose, Mouth, and Throat: No change in voice, No difficulty swallowing, No dizziness, No ear pain, No headache(s), No hoarseness, No lip swelling, No neck pain, No sore throat, No throat swelling and No tongue swelling Cardiovascular Cardiovascular: Denies chest pain, Denies fainting, Denies fast heart rate, Denies irregular heart rhythm, Denies rapid, pounding, or irregular heartbeat, Denies shortness of breath, Denies shortness of breath with activity and Denies slow heart rate Respiratory Respiratory: Denies chest congestion, Denies cough, Denies hemoptysis, Denies dyspnea, Denies dyspnea on exertion, Denies stridor and Denies wheezing Gastrointestinal Gastrointestinal: Denies abdominal pain, Denies bloating, Denies change in bowel habits, Denies change in stool character, Denies dysphagia, Denies nausea, Denies vomiting and Denies hematemesis Genitourinary Genitourinary: Denies hematuria, Denies difficulty urinating and Denies urinary frequency Musculoskeletal Musculoskeletal: Denies myalgias, Reports muscle weakness (Both arms) and Denies neck pain Integumentary/Breasts Skin/Breast: Denies bleeding lesions, Denies change in pigmentation, Denies changing lesions, Denies new lesions, Denies rash, Denies skin swelling, Denies sores and Denies jaundice Neurologic Neurologic: Denies abnormal speech, Denies behavioral changes, Denies confusion, Denies dizziness, Denies syncope, Denies headache(s), Denies loss of vision, Denies memory loss, Denies seizure-like activity, Denies paresthesias and Reports weakness (Both arms and globally) Psychiatric Psychiatric: Denies behavioral changes, Denies change in appetite, Denies confusion, Denies difficulty concentrating, Denies auditory hallucinations, Denies memory loss, Denies mood swings and Denies suicidal ideation Endocrine Endocrine: Denies excessive sweating, Denies flushing, Denies polyuria and Denies palpitations Hematologic/Lymphatic Hematologic/Lymphatic: Denies easy bleeding, Denies easy bruising and Denies lymphadenopathy Allergic/Immunologic Allergic/Immunologic: Denies urticaria, Denies itchy eyes, Denies lip swelling, Denies throat swelling, Denies tongue swelling and Denies wheezing Exam Vital Signs (past 8 hours): - 09/15/19 04:05 09/15/19 06:46 09/15/19 07:36 Temperature Pulse Rate 88 80 77 Respiratory Rate 18 18 16 Blood Pressure 147/76 H Blood Pressure [Left Arm] 156/82 H 159/80 H Pulse Oximetry 97 99 99 09/15/19 07:55 Temperature 98 F Pulse Rate 70 Respiratory Rate 17 Blood Pressure 146/80 H Blood Pressure [Left Arm] Pulse Oximetry 98 Oxygen Delivery Method Room Air Oxygen Flow Rate 0 Narrative Exam Narrative: HEENT-unremarkable, normocephalic atraumatic Neck-no lymphadenopathy no bruits Lungs-clear anteriorly and posteriorly no wheezes no crackles good breath sounds Heart-regular rate and rhythm, no murmur, rub, or gallop. normal S1-S2 Abdomen-positive bowel tones, soft, nontender, nondistended, no hepatosplenomegaly, no masses palpable Neuro-normal to screening exam, gait not tested Extremities-no cyanosis clubbing or edema Objective Labs Result Diagrams: 09/15/19 00:10 09/15/19 00:10 Labs: Laboratory Results - last 24 hr 09/15/19 09/15/19 00:10 00:10 WBC 11.4 H RBC 4.08 L Hgb 13.1 L Hct 38.0 L MCV 93.1 MCH 32.0 MCHC 34.4 RDW 13.8 Plt Count 220 Neut % (Auto) 78.2 H Lymph % (Auto) 10.4 L Bennett % (Auto) 11.2 Eos % (Auto) 0.0 L Baso % (Auto) 0.2 Neut # (Auto) 9000 H Lymph # (Auto) 1200 Bennett # (Auto) 1300 H Eos # (Auto) 0 Baso # (Auto) 0 ESR 13 Sodium 140 Potassium 4.2 Chloride 101 Carbon Dioxide 24 BUN 20 Creatinine 1.20 Estimated GFR 58.3 L BUN/Creatinine Ratio 16.7 Glucose 174 H Calcium 8.7 Total Bilirubin 1.7 H AST 56 ALT 16 Alkaline Phosphatase 68 C-Reactive Protein 7.5 H Total Protein 7.3 Albumin 4.4 Globulin 2.9 Albumin/Globulin Ratio 1.5 Assessment & Plan Assessment & Plan narrative: 1. Global weakness-no evidence of neurologic dysfunction. Exam is pretty benign. Contrast enhanced head CT as well as CT angiography of the brain is unremarkable. Chose not to do MRI because of his recent knee surgery and previous MRI being normal. Previously his large vessels carotids etc were evaluated found to be normal and he is not really demonstrate or express symptoms consistent with a large vessel issue I would certainly continue him on his aspirin and Plavix for now I think his overall weakness and return to the hospital is more related to issues around his knee surgery in inability to function following that than any other specific issue. Lab work was pretty unremarkable imaging has been unremarkable etc Have yet to get him on his feet with physical therapy but he may indeed require sometime of care home rehab before being able to return home. I defer this evaluation to Orthopedic surgery 2. Diabetes-continue usual meds and insulin as needed continue with diabetic/carb consistent diet 3. Hypertension-continue usual meds 4. Hyperlipidemia-continue usual meds
--- NOTE | 2019-09-15 10:31 | CM.DANOTE ---
Addendum entered by Renita Almazan R.N. 09/15/19 14:12: Called and spoke to patient's , Mikey. She had been in patient's room earlier, but this case briefer was unable to meet up with her. Discussed patient's need for correction rehab versus going home. admitted that patient had a few falls at home, her and her sister who lives down stairs had attempted to lift patient, before calling EMS. She mentioned that he had a couple falls that day. Asked her if patient was given any orders for outpatient P.T., and she stated he was not. Went over some facilities over the phone with patient, and mentioned that the two facilities contracted with [facility] are [facility] and [facility]. She prefers [facility] at this time, but reminded her to get a back up facility. This is providing that [facility] authorizes. Called and spoke to Kathrine at [facility]. She stated that they will review, and should have openings for tomorrow. Sent over today's P.T. note to [facility]. Addendum entered by Renita Almazan R.N. 09/15/19 13:17: Spoke to RENA Rhoades in orthopedics. He stated that patient may need correction. Patient has had falls at home, post surgery. Patient notes some safety concerns. Let him know that P.T notes are crucial to get [facility] to authorize. Also, asked if O.T. can also get ordered, for they can do cognitive checking. Will discuss with , as well as looking at Medicare choice list for correction. Original Note: DCP: Case received, EMR reviewed and met with patient. Introduced self and role. Met briefly with patient, he was laying in bed. Was able to obtain some baseline activity from patient. DCP template/assessment completed with information currently available. Patient is an 78 year old patient who admitted early this morning to the care of the hospitalist/orthopedic team. PCP: Dr. Sebastian. Payer: confirmed: [facility]. Patient came to the hospital via ambulance secondary to falling. Patient had been here for surgery on 09/13, surgical day surgery for left partial knee replacement. According to notes, patient had been having some falls at home. Met with patient in his room. Asked him about falls, and he stated, I wasn't falling, I was just having trouble getting off of the toilet. He resides here in [place] with his . He has been using a walker at home according to notes, but has had some difficulty with weight bearing. P: Patient will be seeing orthopedics today. He will also need to get P.T. to help determine a plan for patient at discharge. Patient could potentially benefit from home health if home bound, for P.T. P.T. team will also help to determine the best plan for patient. Renita Almazan RN/Mathematics Education Professor
--- NOTE | 2019-09-15 10:47 | DI.CT.S_ITS ---
PROCEDURE: CT ANGIO HEAD INDICATIONS: confusion TECHNIQUE: Precontrast 4.5 mm thick angled axial sections acquired from the foramen magnum to the vertex. After the administration of intravenous contrast, 1 mm thick sections acquired through the [place] of [place]. Postcontrast 4.5 mm thick sections then re-acquired from the foramen magnum to the vertex. 10 mm thick hwoahfs-yxxjzddyf-fbxvhgqrol (MIP) reformats were acquired of the central intracranial vasculature. For radiation dose reduction, the following was used: automated exposure control, adjustment of mA and/or kV according to patient size. COMPARISON: [facility], CT, CT ANGIO HEAD AND NECK, 05/27/2018, 16:27. [facility], CT, CT HEAD/BRAIN WO CON, 05/23/2019, 12:35. [facility], MR, MR STROKE, 05/28/2018, 11:26. [facility], MR, STROKE PROTOCOL, 03/05/2017, 8:52. FINDINGS: Image quality: Excellent. Anterior circulation: Intracranial internal carotid arteries are normal in size and flow. A few scattered atherosclerotic calcifications noted in the cavernous and supraclinoid segments of the internal carotid arteries bilaterally which do not cause measurable stenosis. The flow within the paired anterior cerebral arteries is normal and symmetric. The flow within the middle cerebral arteries is normal and symmetric. The anterior communicating artery is seen. No aneurysms are seen. Posterior circulation: Visualized portions of the vertebral arteries demonstrate normal caliber, and join to form a normal appearing basilar artery. Atherosclerotic calcifications noted in the proximal V4 segments of the vertebral arteries bilaterally which do not cause measurable stenosis. Flow within the posterior cerebral arteries is normal and symmetric. No aneurysms are seen. Dural sinuses demonstrate normal postcontrast enhancement. CSF spaces: Ventricles are normal in shape. There is prominence of the ventricular system which is slightly out of proportion to prominence of the sulci. Basal cisterns are patent. No extra-axial fluid collections. Brain: No midline shift. No intracranial bleeds or masses. Christian-white matter interface appears intact. Moderate diffuse posterior CSF space. Moderate periventricular and subcortical white matter chronic microvascular ischemic changes. Skull and face: Calvarium and facial bones appear intact, without suspicious lesions. Sinuses: Visualized sinuses and mastoids are clear. IMPRESSION: 1. No acute intracranial disease process. 2. No large vessel occlusion,, hemodynamically significant stenosis, vascular dissection or aneurysm. Dictated by: Jolie Fermin MD, PhD on 09/15/2019 at 11:32 Approved by: Jolie Fermin MD, PhD on 09/15/2019 at 11:40
[2019-09-15] MEDS: CLOPIDOGREL 75 MG TABLET PO (13:00)
[2019-09-15] MEDS: ASPIRIN 325 MG TABLET PO (13:00)
[2019-09-15] MEDS: GLIMEPIRIDE 2 MG TABLET PO (13:01)
[2019-09-15] MEDS: INSULIN ASPART 100 UNIT/ML INSULN PEN SUBCUT ×2 (13:01→16:57)
--- NOTE | 2019-09-15 13:10 | OT.IP.EVAL ---
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 No known deficits Mobility and Gait Pt was independent with all mobility without assistive device prior to surgery on . Since surgery, he has been using a FWW at home. He reported weakness and multiple falls since that time. Activities of Daily Living and IADL's Independent with all self care prior to surgery on 09/13 per pt. Pt manages own meds at home per using pillbox. She is not sure if he is remembering to take prescribed pain meds at appropriate times. Pt still drives. Both manage finances. Prior Functional Level (Other details) reports pt very stubborn at home. Social History Household Members spouse,family Living Arrangements House Number of Floors (Floors) Two Floors Number of Stairs To Enter/Railing? Level entrance Home Environment Standard Height Toilet,Tub/ Shower Home Equipment Front Wheel Walker,Hand Held Shower Employment Status Retired Additional Social History Comment Pt lives on main level with his spouse. [id number] occupies the basement. Pt has no DME for bathroom at home and was unable to get off toilet x2 and slid to the floor requiring assist from paramedics to get up. M2 OT-IP Current Condition Start: 09/15/19 17:57 Freq: Status: Active Protocol: Document 09/15/19 15:10 PJM (Rec: 09/15/19 18:30 PJ [email or web address]) Occupational Therapy Current Condition Current Condition Evaluation Date 09/15/19 Treatment Diagnosis decr'd self care, mobility w/ multiple falls S/P unipolar L knee replacement Diagnosis Onset Date 09/13/19 Post Operative Precautions Other Precautions fall risk, decreased insight Weight Bearing Status Weight Bearing Status Weight Bear as Tolerated M3 OT- IP Subjective and Pain Start: 09/15/19 17:57 Freq: Status: Active Protocol: Document 09/15/19 15:10 PJM (Rec: 09/15/19 18:30 PJM [email or web address]) OT- Subjective Occupational Therapy Visit Type Type Initial Evaluation Visit Start Time 14:25 Visit Stop Time 13:10 Total Visit Minutes 45 Occupational Therapy Visit Comments Patient Comments I didn't fall at home. I slid off toilet onto the floor and could not get myself up. Patient/Caregiver Goals to go home, be able to walk better OT Pain Assessment Pain When Pain Assessed After Treatment Pain Present Pain Present Denied Pain M4 OT- IP ADL's Start: 09/15/19 17:57 Freq: Status: Active Protocol: Document 09/15/19 15:10 PJM (Rec: 09/15/19 18:30 PJM [id number]) OT [id number] General Evaluation Self-Feeding Ability Independent OT ADL-Grooming General Evaluation Grooming Ability Standby Assistance Areas Needing Assistance Face Washing Comments OT Grooming Comments in chair after set up OT ADL-Oral Care Comments Oral Care Comments pt declined this session OT ADL-Dressing General Eval Lower Body Dressing Ability Moderate Assistance,Maximum Assistance Areas Needing Assistance Socks,Shoes Comments OT Dressing Comments mod assist with hospital pants and max assist with L sock and shoe due to knee stiffness; pt unsteady when reaching to R foot too and would benefit from use of long handled equipt for lower body dressing to increase safety OT ADL-Toileting Comments OT Toileting Comments did not occur this session; spoke with on phone re: obtaining bedside commode for use over toilet at home to increase height and provide side rails for safety OT ADL-Bathing Comments OT Bathing Comments to be assessed, pt has tub shower at home and would benefit from tub seat for safety M5 OT- IP IADL's Start: 09/15/19 17:57 Freq: Status: Active Protocol: Document 09/15/19 15:10 PJM (Rec: 09/15/19 18:30 [facility] [id number]) OT-Instrumental Activities of Daily Living Deficits IADL Deficits Identified Deficits Home Safety Awareness Awareness of Need for Assistance at Home Decreased Awareness Home Safety Comments pt appears to have poor insight into fall risks in home setting Medication Management Medication Management Comments recommend pt have supervision for all medication management due to STM deficits; feels pt's memory worse when pt taking narcotic pain meds Money Management Money Management Comments recommend pt have supervision for all financial management analyst due to STM deficits Meal Preparation Meal Preparation Caregiver Provides Assist Geriatric Nursing Assistant Geriatric Nursing Assistant Caregiver Provides Assist Driving Driving Caregiver Provides Assist Driving Comments recommend assist pt with driving at present M6 OT- IP Functional Cognition Start: 09/15/19 17:57 Freq: Status: Active Protocol: Document 09/15/19 15:10 PJM (Rec: 09/15/19 18:30 [facility] [id number]) Cognitive Factors Limiting Selfcare Function Cognitive Ability Level of Alertness Alert Patient Orientation Name,Birthday,Month,Year,Day of Week,Place,Situation Attention Span Ability Capable of Focused Attention, Capable of Sustained Attention Ability to Follow Commands Able to Follow One Step Commands Memory Description Short Term Impaired Safety Awareness Decreased Recall of Precautions,Decreased Ability to Apply Precautions, Underestimates Need for Assistance Problem Solving Ability Unable to Identify Errors, Needs Assist to Identify Solutions Executive Function Ability Unable to Remember Details Abstract Thinking Ability Unable to Draw Logical Conclusions Cognitive Tests SLUMS Pt scored 20/30 (norm is 27/30) indicating significant cognitive impairment. Pt had difficulty with immediate, working and short term memory tasks. He had difficulty with mental math and word generation was slow. Pt demonstrated inattention to detail on clock drawing. OT- Vision and Hearing OT- Hearing Assessment OT- Hearing Assessment WFL OT- Vision Assessment Visual Acuity WFL M7 OT- IP Mobility and Balance Start: 09/15/19 17:57 Freq: Status: Active Protocol: Document 09/15/19 15:10 PJM (Rec: 09/15/19 18:30 [facility] [email or web address]) OT- Bed Mobility Assessment Rolling Type of Rolling Roll to Left Level of Assistance Standby Assistance Supine to Sit Supine to Sit Assist Standby Assistance Scooting Scooting to Edge of Bed Standby Assistance OT-Transfer Assessment Sit to and From Stand Sit to and from Stand Contact Guard Assistance,1 Person Assistance Transfers Transfer Ability Minimal Assistance,1 Person Assistance Technique Transfer Destination Chair Transfer Technique Stand Step Pivot Devices Transfer Assistive Devices Gait Belt,Front Wheeled Walker Comments Mobility Comments Pt performs bed mobility slowly and with effort; appears mildly apraxic when attempting to scoot forward to get feet on floor to prepare for sit to stand. CGA for sit to stand, then min assist to control FWW walker placement and max cues for 4-5 steps to chair with FWW. Pt tends to keep FWW too far ahead of him which increases fall risk. OT- Gait Assessment Gait Gait Assistance Required: Contact Guard Assist,1 Person Assist Distance (Feet) 4 Assistive Devices Assistive Device Gait Belt,Front Wheeled Walker OT- Balance Assessment Sitting Balance and Reactions Static Sitting Balance Ability Good Dynamic Sitting Balance Ability Fair Standing Balance and Reactions Static Standing Balance Ability Good Dynamic Standing Balance Ability Fair Comments Other Balance Tests/Deviations/Treatment pt unsteady when leaning : forward to feet to don and doff socks M8 OT- IP Objective Assessments Start: 09/15/19 17:57 Freq: Status: Active Protocol: Document 09/15/19 15:10 PJM (Rec: 09/15/19 18:30 PJM [email or web address]) OT Gross Range of Motion Upper Extremity Range of Motion Assessment Within Functional Limits OT Strength Upper Extremity Strength Assessment Within Functional Limits Hand Car Changer Strength Hand Dominance Right Comments Strength Comments Pt states his shoulders are sore from trying to get himself up from floor in bathroom at home. OT- Coordination Assessment Comments Coordination Comments BUE WFL OT-Muscle Tone Assessment Muscle Tone WNL Yes OT Sensation Assessment Comments Summary Comments BUE WNL Edema Edema Present Edema Comments LLE edema noted in lower leg and foot M9 OT- IP Assessment and Plan Start: 09/15/19 17:57 Freq: Status: Active Protocol: Document 09/15/19 15:10 PJM (Rec: 09/15/19 18:30 PJM [email or web address]) OT Summary Assessment and Plan Potential Rehabilitation Potential Good Analytic Complexity at Evaluation Low Summary OT Impairments Balance,Functional Mobility, Dressing,Toileting,Bathing, Toilet Transfers,Shower Transfers Assessment Summary Low complexity OT assessment completed on this 78 yr old man admitted 09/15/19 after failing at home within 48 hrs of discharge after L unipolar knee replacement on 09/13/19. Pt had multiple falls, requiring paramedics to assist with getting him up from floor, and states she is unable to manage pt's care at home. Note pt has hx of previous stroke and recent TIA 05/2019 with R side weakness and word finding deficits. Pt found to have cognitive impairments scoring 20/30 on SLUMS today (norm is 27/30). See above for details. Pt currently has significant performance deficits in all functional mobility and transfers, especially in bathroom as he was unable to get off low toilet at home. He also has significant deficits in lower body dressing and bathing. Note pt has tub/ shower combo at home with no DME in place. Pt is far below his baseline level of function as he is normally independent in all self care and functional mobility without a device. Recommend short term SNF at d/c for further rehab to ensure safety and prevent further falls at home. Pt will benefit from OT services here to address the goals below. Goals Grooming Goal Independent Dressing Goal Independent,Long Handled Shoe Horn,Performance Test Consultant,Sock Aid Toileting Goal Independent Bathing Goal Standby Assistance,Grab Bars, Hand Held Shower Sprayer,Long Handled Sponge or [place] Toilet Transfer Goal Independent,Raised Toilet Seat With Rails Shower Transfer Goal Standby Assistance,Tub/Shower Combination,Shower Chair,Tub Transfer Bench Patient/Caregiver Education Goal Demonstrate Post-Op Precautions,Demonstrate Energy Conservation and Pacing, Caregiver Independent Assisting Patient Days to Meet Goals 5 Frequency of Treatment Frequency Of Treatment Once a Day Treatment Plan OT Treatment Plan ADL Training,Functional Mobility,Patient/Family Education,Discharge Planning Discharge Recommendations OT Discharge Recommendations SNF Rehab Home Equipment Needs tub seat vs shower seat pending progress, grab bars, BSC over toilet
--- NOTE | 2019-09-15 13:23 | PT.IIE ---
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 No known deficits Mobility and Gait Pt was independent with all mobility without assistive device prior to surgery on . Since surgery, he has been using a FWW at home. He reported weakness and multiple falls since that time. Activities of Daily Living and IADL's Independent Social History Household Members spouse,family Living Arrangements House Number of Floors (Floors) Two Floors Number of Stairs To Enter/Railing? Level entrance Home Environment Standard Height Toilet,Tub/ Shower Home Equipment Hand Held Shower Employment Status Retired Additional Social History Comment Pt lives on main level with his spouse. [id number] occupies the basement. M2 PT-IP Current Condition Start: 09/15/19 11:37 Freq: NEEDED Status: Active Protocol: Document 09/15/19 12:40 AW (Rec: 09/15/19 13:23 AW [id number]) Physical Therapy Current Condition Current Condition Evaluation Date 09/15/19 Treatment Diagnosis s/p left uni/medial knee replacement, difficulty in walking Precautions Other Precautions recent history of falls at home Weight Bearing Status Weight Bearing Status Weight Bear as Tolerated M3 PT-IP Subjective Start: 09/15/19 11:37 Freq: NEEDED Status: Active Protocol: Document 09/15/19 12:40 AW (Rec: 09/15/19 13:23 AW [id number]) Subjective Physical Therapy Visit Type Type Initial Evaluation Visit Start Time 11:50 Visit Stop Time 12:30 Total Visit Minutes 40 Number of SIGNAL MAINTAINER HELPER Visits 0 Physical Therapy Visit Comments Patient Comments Pt willing to work with therapy Patient Goals Pt hopes to return home Therapy Pain Assessment Pain When Pain Assessed During Mobility Pain Present Pain Present Pain Reported Location left knee Scale Used rating not stated Pain Management Techniques Apply Cold,Re-positioning, Timing of Activity with Medications M4 PT-IP Mobility and Gait Start: 09/15/19 11:37 Freq: NEEDED Status: Active Protocol: Document 09/15/19 12:40 AW (Rec: 09/15/19 13:23 AW [id number]) PT-Bed Mobility Assessment Supine to Sit Supine to Sit Standby Assistance Scooting Scooting to Edge of Bed Standby Assistance Scooting Up and Down in Bed Standby Assistance PT-Transfer Assessment Sit to and From Stand Sit to and from Stand Contact Guard Assistance, Minimal Assistance,Use of Upper Extremities Equipment Transfer Assistive Device Gait Belt,Front Wheeled Walker Orthotic/Prosthetic Devices or Brace: No Transfers Transfer Destination Chair Transfer Technique pt ambulated with FWW Transfer Ability Level of Assist Contact Guard Assistance,Use of Upper Extremities Comments Mobility Comments Pt completed bed mobility with SBA and transfers requiring CGA, verbal cues for hand placement. Pt completed sit <> stand x 5 from chair CGA, requiring frequent cues to use UE's appropriately Gait Assessment Gait Gait Assistance Required: Contact Guard Assist Distance (Feet) 50 Able to Maintain Weight Bearing Status Yes During Gait Assistive Devices Assistive Device Gait Belt,Front Wheeled Walker Orthotic/Prosthetic Devices or Brace: No Gait Deviations General Gait Pattern Antalgic,Decreased Stride Length,Decreased Feet Clearance,Flexed Trunk,Step-to Gait Factors Limiting Gait Function Factors Limiting Gait Function Decreased Activity Tolerance, Decreased Strength,Limited Range of Motion,Pain,Poor Balance,Poor Safety Awareness Comments Gait Comments Pt ambulated 50 feet with FWW CGA. He required max cues for safe use of FWW, tending to push the walker far in front of him. He was unable to correct this pattern in response to verbal and tactile cues, increasing his risk of falls. Stair Climbing Assessment Comments Stair Climbing Comments Not assessed. PT-Balance Assessment Sitting Balance and Reactions Static Sitting Balance Ability Good Dynamic Sitting Balance Ability Good Standing Balance and Reactions Static Standing Balance Ability Fair Dynamic Standing Balance Ability Fair Device Used FWW Functional Assessments Functional Tests 5 Times Sit to Stand 60 seconds M5 PT-IP Objective Assessments Start: 09/15/19 11:37 Freq: NEEDED Status: Active Protocol: Document 09/15/19 12:40 AW (Rec: 09/15/19 13:23 AW [id number]) Orientation Orientation/Cognition Level of Alertness Alert Orientation Name,Date,Place,Situation Language Function Ability No Deficits Noted Safety Awareness Decreased Safety Awareness Memory Description Short Term Impaired Comments Pt able to recall 2/3 words independently (apple, table) and the 3rd word (césar) after two clues. Gross Range of Motion Upper Extremity ROM Assessment Within Functional Limits Lower Extremity ROM Assessment Left Impaired Strength Upper Extremity Strength Assessment Right Impaired Shoulder 4/5 secondary to pain Lower Extremity Strength Assessment Left Impaired Comments Strength Comments RLE grossly 4/5 Coordination Assessment Gross Coordination Gross Coordination WNL Assessment Finger to Nose Test Normal Performance Sensation Assessment Sensation Gross Sensation WNL M6 PT-IP Treatment Start: 09/15/19 11:37 Freq: NEEDED Status: Active Protocol: Document 09/15/19 12:40 AW (Rec: 09/15/19 13:23 AW [id number]) Physical Therapy Treatment Exercises Exercises Ankle Pumps,Quad Sets,Heel Slides,Passive Knee Extension Hang Education Education Provided Precautions,Weight Bearing Status,Safety M7 PT-IP Assessment and Plan Start: 09/15/19 11:37 Freq: NEEDED Status: Active Protocol: Document 09/15/19 12:40 AW (Rec: 09/15/19 13:23 AW [id number]) PT Summary Assessment and Plan Potential Rehabilitation Potential Good Status of Condition at Evaluation Evolving Summary Impairments Pain,ROM,Strength,Balance, Cognition,Bed Mobility, Transfers,Gait,Activity Tolerance Assessment Summary Pt is an 78 yo man seen for PT evaluation after readmission following left uni/medial compartment knee arthroplasty. Upon return to home, pt had multiple falls and reported being unable to get off the toilet seat due to weakness and pain. PLOF: Prior to surgery, pt reports he was independent for ambulation without assistive device. Since surgery, he has used a FWW and has experienced multiple falls at home. CLOF: Pt required SBA to CGA for all mobilities. Ambulation tolerance was limited to 50 feet with FWW CGA due to pain, poor balance, and poor activity tolerance. He required max cues for safe use of FWW. Even with max verbal and tactile cues, pt was unable to correct his walker management, increasing his risk of falls. His 5 Time Sit to Stand score of 60 seconds also indicates increased risk of falling. PT recommends SNF rehab for strengthening, balance training, and safety awareness to increase his independence and safety in the home environment. Goals Bed Mobility Goal Independent Transfer Goal Standby Assistance,Front Wheeled Walker Gait Goal Standby Assistance,Front Wheel Walker Gait Distance 150 Days to Meet Goals 10 Frequency of Treatment Frequency Of Treatment Twice a Day Treatment Plan Physical Therapy Treatment Plan Bed Mobility Training,Transfer Training,Gait Training, Therapeutic Exercise,Balance Retraining,Post Op Education, Discharge Planning,Hot or Cold Pack,Neuromuscular Re-ed, Coordination Retraining,Manual Therapy Recommendations To Nursing Amount of Assist Needed 1 Person Assist Discharge Recommendations PT Discharge Recommendations Home with 24/7 Assist,Home Health,SNF Rehab Other Discharge Recommendations SNF rehab vs home with 24/7 and Equipment Needed for Home Before toilet riser Discharge
--- NOTE | 2019-09-15 13:24 | PC.NURSE ---
Patient stated he wanted his insulin injection in his right knee. states that his confusion is not his baseline. Patient was oriented to place and date. Case management was notified and will follow up with PT/OT and possible placement. Susie Gamez Student Nurse
--- NOTE | 2019-09-15 15:49 | CM.DPC ---
Addendum entered by Renita Almazan R.N. 09/15/19 16:04: Went ahead and sent referral to [facility] as well, in case [facility] can't accept. Spoke to Radha in admissions at [facility] who stated that they should be able to accept, pending cable approval. Will complete PASSR Original Note: DCP Cont: Spoke to Nory at [facility], no showcase maker yet assigned. Gave her update on patient, faxed over P.T. note. She stated that since this was elective surgery, will need to be reviewed. Let her know that patient failed in the home setting, which is why he came back here to hospital. P: DCP to follow closely. Follow up with [facility] authorization tomorrow, and [facility]. Sending referral over to [facility] as well, in case [facility] is not able to accept, for [facility] is also contracted with [facility]. Radha at [facility] stated that they should have availabilities. Renita Almazan RN/Implementation Lead
--- NOTE | 2019-09-15 17:14 | PM.PNPO.1 ---
Subjective Subjective Date Patient Seen: 09/15/19 Time Patient Seen: 10:00 Interval history: 78 year old man with history of TIA, taking plavix, admitted from [facility] ED on 09/14 after multiple falls at home s/p left unicompartmental knee arthroplasty POD 1. Saw patient today at POD 2. Patient has no complaints. Patient describes falls yesterday as one episode - he was unable to stand up from the toilet because both his arms felt weak. Weakness in arms resolved last night. Patient denies headache, dizziness, neck pain, stiff neck, confusion, trouble speaking, loss of vision, nausea, vomiting, seizures, numbness, tingling, fever, chills, shortness of breath, chest pain, palpitations. Patient describes his previous TIA as feeling confused which was noted by his . At time of exam, is not present. Patient denies any pain or trouble urinating/bowel movements. Exam Vital Signs (past 8 hours): - 09/15/19 12:07 09/15/19 15:50 Temperature 98.3 F 98.3 F Pulse Rate 70 72 Respiratory Rate 16 18 Blood Pressure 140/76 152/85 H Pulse Oximetry 98 98 Oxygen Delivery Method Room Air Oxygen Flow Rate 0 Narrative Exam Narrative: 78 year old male is lying comfortably in bed, in no apparent distress. A&Ox3. HENMT - normocephalic, atraumatic Eyes - PERRLA, EOMI Neck - FROM, supple, no spinal tenderness Peripheral vascular - no edema of feet ankles, no calf tenderness, dorsalis pedis 2+b/l, radial pulses 2+ b/l. Musculoskeletal - Full ROM without tenderness in hands, wrists, elbows, shoulders. Strength 5/5+ bilaterally upper extremities. Patient able to actively dorsiflex/plantar flex bilaterally. Dressing CDI. Neuro - A&Ox3, flat affect, sensation to light touch grossly intact in both upper and lower extremities. Objective Labs Result Diagrams: 09/15/19 00:10 09/15/19 00:10 Labs: Laboratory Results - last 24 hr 09/15/19 09/15/19 00:10 00:10 WBC 11.4 H RBC 4.08 L Hgb 13.1 L Hct 38.0 L MCV 93.1 MCH 32.0 MCHC 34.4 RDW 13.8 Plt Count 220 Neut % (Auto) 78.2 H Lymph % (Auto) 10.4 L [place] % (Auto) 11.2 Eos % (Auto) 0.0 L Baso % (Auto) 0.2 Neut # (Auto) 9000 H Lymph # (Auto) 1200 [place] # (Auto) 1300 H Eos # (Auto) 0 Baso # (Auto) 0 ESR 13 Sodium 140 Potassium 4.2 Chloride 101 Carbon Dioxide 24 BUN 20 Creatinine 1.20 Estimated GFR 58.3 L BUN/Creatinine Ratio 16.7 Glucose 174 H Calcium 8.7 Total Bilirubin 1.7 H AST 56 ALT 16 Alkaline Phosphatase 68 C-Reactive Protein 7.5 H Total Protein 7.3 Albumin 4.4 Globulin 2.9 Albumin/Globulin Ratio 1.5 Assessment & Plan Post-op Postoperative Postoperative plan narrative: Nothing notable on physical exam. Considering history of TIA, patient's PCP was consulted. Patient mobilized poorly with PT secondary to cognitive issues, PT recommends SNF. OT consulted for further cognitive evaluation Discharge likely tomorrow, possibly to SNF Time Spent With Patient Time with patient: less than 15 minutes Quality VTE Deep Vein Thrombosis/Pulmonary Embolism Present on Admission: No
[2019-09-15] MEDS: LISINOPRIL 10 MG TABLET 30 MG PO (20:53)
[2019-09-16] VITALS (7 sets, daily range): BP systolic 137–162; BP diastolic 59–79; PULSE 56–70; RESP 14–19; TEMP 36.7–37.8; O2SAT 96–98
--- NOTE | 2019-09-16 01:07 | PC.NURSE ---
Addendum entered by Marisela Tracey R.N. 09/16/19 05:19: Pt's odd behavior/confusion continues, during toileting, DRYWALL TAPER reports that she assisted pt and when done offered pt hand computer analyst which he accepted and then rubbed on his genitals. Pt was reported to be caught off guard by sensation, DRYWALL TAPER felt the interaction was telling of pt's appearing to be confused. Original Note: Shift note: Received pt from evening shift. At time of assessment, pt was AxOx3 and appeared to be able to make needs known. Pt was adamant that he did not fall at home and that he slipped off the toilet and was unable to get back up, did not want to agitate pt with further questions. Assessment was notable for erythema and edema to left lower extremity from above the knee to the ankle that was warm to the touch with 2-3+ pitting edema, there is an aquacell dressing in place with splotchy shadow drainage and a bruise to the interior aspect of left knee. Pt denies pain to extremity. During hourly check of pt by DRYWALL TAPER, pt was found to be mostly undressed stating that he had been trying to call staff. DRYWALL TAPER asked pt how he had been calling to which he stated he did not know, and stated he did not know how to use call light. Pt had been educated at time of assessment how to use call light and to call for help. Pt reported to DRYWALL TAPER that he had wet the bed which incontinence was not reported at baseline or at shift change. Pt appears to be confused or suffering from memory loss. Will continue to monitor closely for on going changes to mentation.
--- NOTE | 2019-09-16 08:22 | DI.RAD.S_ITS ---
PROCEDURE: XR CHEST 2V INDICATIONS: fever TECHNIQUE: 2 views of the chest were acquired. COMPARISON: [facility], , CHEST 1 VIEW, 03/04/2017, 20:19. FINDINGS: Surgical changes and devices: None. Lungs and pleura: Lungs are mildly hyperinflated with minor chronic perihilar atelectatic changes are. No pleural effusions or pneumothorax. Mediastinum: Mediastinal contours are normal. Central pulmonary arteries are mildly prominent. Heart size is normal. Bones and chest wall: No suspicious bony abnormalities. Soft tissues appear unremarkable. IMPRESSION: 1. Mild emphysematous changes with chronic atelectasis. No new consolidations. Dictated by: Yue Dover M.D. on 09/16/2019 at 9:11 Approved by: Yue Dover M.D. on 09/16/2019 at 9:12
--- NOTE | 2019-09-16 08:23 | P.PN_ITS ---
Subjective Subjective Date Patient Seen: 09/16/19 Time Patient Seen: 08:23 Interval history: Patient demonstrating some significant confusion overnight, which is documented in nursing staff notes. Patient denies most of what's documented and or has no recollection of any of it. Was seen by Physical therapy for complete evaluation not felt to be safe to be up without assistance. Recommendation was for long-term placement verses return home with 24/7 caregivers (not spouse) who can assist with transfers and ambulation Patient self has no complaints and very little insight into his problems other than knee pain and sort of weakness overall. He felt like he did very well with physical therapy yesterday. Patient also minimally febrile overnight maximum temperature of 100.0? Exam Vital Signs (past 8 hours): - 09/16/19 04:50 09/16/19 07:29 Temperature 100.0 F H 99.7 F H Pulse Rate 65 70 Respiratory Rate 16 16 Blood Pressure 144/59 H 137/69 Pulse Oximetry 97 96 Oxygen Delivery Method Room Air Oxygen Flow Rate 0 Narrative Exam Narrative: HEENT-unremarkable, normocephalic atraumatic Neck-no lymphadenopathy no bruits Lungs-clear anteriorly and posteriorly no wheezes no crackles good breath sounds Heart-regular rate and rhythm, no murmur, rub, or gallop. normal S1-S2 Abdomen-positive bowel tones, soft, nontender, nondistended, no hepatosplenomega ly, no masses palpable Neuro-no focal findings Objective Labs Result Diagrams: 09/15/19 00:10 09/15/19 00:10 Assessment & Plan Assessment & Plan narrative: 1. Postop weakness and pain-continued physical therapy in management as per Orthopedic surgery. Agree with long-term placement 2. Fever-patient with low-grade fever. Given his recent surgery etc I am going to go ahead and check a UA and chest x-ray for source of infection. His wound does not look to be infected to me at this time. This could be contributing to some confusion/metabolic encephalopathy of course if there is an infectious illness on board as well as contributing to his overall weakness. His white blood cell count was minimally elevated upon readmission, with a bit of a left shift. Patient has not had significant issues with his diabetes however. Does deserve a basic workup for postop infectious issues however I believe. 3. Confusion/metabolic encephalopathy-may be merely due to patient's pain weakness and being in hospital setting at age 78 after having had major surgery to his knee. Could also be related to infectious issues as above. At this point continue supportive care while searching for correctable causes such as an infection etc. I am not convinced there isn't some low-level cognitive dy sfunction at baseline in this particular patient. He has demonstrated kind of an ?odd? affect at times over the last couple of years that may indeed be more confusion and or cognitive dysfunction than anything else. Given his normal imaging of his [employer] over the last several months and if we rule out infectious etiologies I would have to assume this is more of an acute delirium on top perhaps of some mild cognitive dysfunction and expect improvement as he physically improves. He may benefit from more specific cognitive testing as an outpatient once he recovers from his knee surgery. 4. Diabetes-adequate control for now continue usual medications and diabetic diet 5. Hypertension-adequate control Overall, once patient has had his chest x-ray and urine examined and we have either begun treating a newly found infection or we have ruled that out he should be ready for discharge to long-term whenever felt to be ready by Orthopedic surgery. Quality VTE Deep Vein Thrombosis/Pulmonary Embolism Present on Admission: No
--- NOTE | 2019-09-16 09:00 | PM.PNPO.1 ---
Subjective <Carlos Clifford PA-C - Last Filed: 09/19/19 16:28> Subjective Date Patient Seen: 09/16/19 Time Patient Seen: 09:00 Interval history: Overnight nursing staff documented episodes of confusion and urinary incontinence. Patient is sitting and eating breakfast, complains of mild pain in left knee. Otherwise no complaints. States he has mobilized very little and able to urinate without difficulty or assistance. Patient denies fever, chills, nausea, vomiting, chest pain, shortness of breath, calf pain. Exam <Carlos Clifford PA-C - Last Filed: 09/19/19 16:28> Vital Signs (past 8 hours): - 09/16/19 04:50 09/16/19 07:29 Temperature 100.0 F H 99.7 F H Pulse Rate 65 70 Respiratory Rate 16 16 Blood Pressure 144/59 H 137/69 Pulse Oximetry 97 96 Oxygen Delivery Method Room Air Oxygen Flow Rate 0 Narrative Exam Narrative: 78 year old male with flat affect is sitting comfortably in chair, eating breakfast, in no apparent distress. A&Ox3. Able to actively dorsiflex/plantar flex. Capillary refill <2sec LE bl. Dorsalis pedis 2+ b/l. Dressing intact and in place, with shadow drainage. L LE - mild non pitting edema, warm, with mild echymosis by the incision site. Objective <RAYSHAWN Strickland Last Filed: 09/19/19 16:28> Labs Result Diagrams: 09/15/19 00:10 09/15/19 00:10 Assessment & Plan Post-op <RAYSHAWN Strickland Last Filed: 09/19/19 16:28> Postoperative Postoperative plan narrative: continue current pain management continue PT/OT - recommends SNF discharge Discharge to SNF most likely considering possible cognitive deficits, multiple falls and poor progression with PT/OT Time Spent With Patient Time with patient: less than 15 minutes Quality <RAYSHAWN Strickland Last Filed: 09/19/19 16:28> VTE Deep Vein Thrombosis/Pulmonary Embolism Present on Admission: No
[2019-09-16] MEDS: LISINOPRIL 10 MG TABLET 30 MG PO ×2 (09:16→21:26)
[2019-09-16] MEDS: CLOPIDOGREL 75 MG TABLET PO (09:16)
[2019-09-16] MEDS: ACETAMINOPHEN 325 MG TABLET 650 MG PO ×3 (09:16→21:27)
[2019-09-16] MEDS: ASPIRIN 325 MG TABLET PO (09:16)
[2019-09-16] MEDS: GLIMEPIRIDE 2 MG TABLET PO (09:16)
--- NOTE | 2019-09-16 11:17 | OT.IP.TRT ---
Addendum entered and electronically signed by Sisi Saldivar OT 09/16/19 16:52: Saw pt in the afternoon to issue Lb dressing equipment. Insurance has denied for him to go to skilled rehab and will be going home when stable. Original Note: Occupational Therapy Treatment Note M2 OT-IP Current Condition Start: 09/15/19 17:57 Freq: Status: Active Protocol: Document 09/15/19 15:10 PJM (Rec: 09/15/19 18:30 PJM [id number]) Occupational Therapy Current Condition Current Condition Evaluation Date 09/15/19 Treatment Diagnosis decr'd self care, mobility w/ multiple falls S/P unipolar L knee replacement Diagnosis Onset Date 09/13/19 Post Operative Precautions Other Precautions fall risk, decreased insight Weight Bearing Status Weight Bearing Status Weight Bear as Tolerated M3 OT- IP Subjective and Pain Start: 09/15/19 17:57 Freq: Status: Active Protocol: Document 09/16/19 11:17 [facility] (Rec: 09/16/19 13:00 [facility] [id number]) OT- Subjective Occupational Therapy Visit Type Type Treatment Note Visit Start Time 11:17 Visit Stop Time 11:52 Total Visit Minutes 35 Occupational Therapy Visit Comments Patient Comments Pt not wanting to shower but agreed to wash up at the sink. Patient/Caregiver Goals Pt wanting to go home. OT Pain Assessment Pain When Pain Assessed During Mobility Pain Present Pain Present Pain Reported Location left knee Intensity 5 Scale Used Numeric (1 - 10) M4 OT- IP ADL's Start: 09/15/19 17:57 Freq: Status: Active Protocol: Document 09/16/19 11:17 [facility] (Rec: 09/16/19 13:00 [facility] [id number]) OT ADL-Grooming General Evaluation Grooming Ability Standby Assistance Areas Needing Assistance Retrieving/Set-up of Grooming Items Comments OT Grooming Comments Pt SBA while standing at the sink with FWW. Intially vc for orientation of items on the counter. OT ADL-Oral Care General Eval Oral Care Ability Independent OT ADL-Dressing General Eval Lower Body Dressing Ability Moderate Assistance,Maximum Assistance Areas Needing Assistance Socks,Shoes Comments OT Dressing Comments Pt needing MAX A for LLE management due to pain and stiffness and unable to do srini/doff socks or brief at this time and needing assist. Pt educated to srini the left leg first and take it out last as LLE. OT ADL-Toileting Comments OT Toileting Comments see comments under cognition OT ADL-Bathing Comments OT Bathing Comments Pt able to sit at the edge of the bed to sponge off his legs and genital areas. M5 OT- IP IADL's Start: 09/15/19 17:57 Freq: Status: Active Protocol: Document 09/15/19 15:10 PJM (Rec: 09/15/19 18:30 [facility] [id number]) OT-Instrumental Activities of Daily Living Deficits IADL Deficits Identified Deficits Home Safety Awareness Awareness of Need for Assistance at Home Decreased Awareness Home Safety Comments pt appears to have poor insight into fall risks in home setting Medication Management Medication Management Comments recommend pt have supervision for all medication management due to STM deficits; feels pt's memory worse when pt taking narcotic pain meds Money Management Money Management Comments recommend pt have supervision for all patient financial services coordinator due to STM deficits Meal Preparation Meal Preparation Caregiver Provides Assist Management Lecturer Management Lecturer Caregiver Provides Assist Driving Driving Caregiver Provides Assist Driving Comments recommend assist pt with driving at present M6 OT- IP Functional Cognition Start: 09/15/19 17:57 Freq: Status: Active Protocol: Document 09/16/19 11:17 [facility] (Rec: 09/16/19 13:00 [facility] [id number]) Cognitive Factors Limiting Selfcare Function Cognitive Ability Level of Alertness Alert Patient Orientation Name,Birthday,Month,Year,Day of Week,Place,Situation Attention Span Ability Capable of Focused Attention, Capable of Sustained Attention Ability to Follow Commands Able to Follow One Step Commands Memory Description Short Term Impaired Safety Awareness Decreased Recall of Precautions,Decreased Ability to Apply Precautions, Underestimates Need for Assistance Problem Solving Ability Unable to Identify Errors, Needs Assist to Identify Solutions Executive Function Ability Unable to Make Plans,Unable to Organize Plans,Unable to Remember Details Abstract Thinking Ability Unable to Draw Logical Conclusions Cognitive Comments Cognitive Assessment Comments Nursing requesting pt to call when having to urinate in order to get a sample. Pt having to go and nurse called and just about to get the urnal for the pt and pt ended up urinating in the sink. Pt needing concrete, simple structured commands to follow. The pt's phone was ringing and did not realize it was his phone. Pt wanting to get the phone as right in the middle of brushing his teeth. Pt needing cues to do one thing at a time. M7 OT- IP Mobility and Balance Start: 09/15/19 17:57 Freq: Status: Active Protocol: Document 09/16/19 11:17 [facility] (Rec: 09/16/19 13:00 [facility] [id number]) OT- Bed Mobility Assessment Rolling Type of Rolling Roll to Left Level of Assistance Standby Assistance Supine to Sit Supine to Sit Assist Standby Assistance Scooting Scooting to Edge of Bed Standby Assistance OT-Transfer Assessment Sit to and From Stand Sit to and from Stand Contact Guard Assistance,1 Person Assistance Transfers Transfer Ability Contact Guard Assistance,1 Person Assistance Technique Transfer Destination Bed Transfer Technique Stand Step Pivot Devices Transfer Assistive Devices Gait Belt,Front Wheeled Walker Comments Mobility Comments Pt tends to want to push up from the FWW to stand versus at least one hand on the surface sitting on. Pt CGA to stand as a little unsteady. Pt needing cues to keep FWW closer to him as he walks. Pt heavily relies on his BUE to push on the FWW in order to take steps. OT- Balance Assessment Sitting Balance and Reactions Static Sitting Balance Ability Normal Dynamic Sitting Balance Ability Fair Standing Balance and Reactions Static Standing Balance Ability Good Dynamic Standing Balance Ability Fair M8 OT- IP Objective Assessments Start: 09/15/19 17:57 Freq: Status: Active Protocol: Document 09/15/19 15:10 [facility] (Rec: 09/15/19 18:30 [facility] [id number]) OT Gross Range of Motion Upper Extremity Range of Motion Assessment Within Functional Limits OT Strength Upper Extremity Strength Assessment Within Functional Limits Hand Cycle Manager Strength Hand Dominance Right Comments Strength Comments Pt states his shoulders are sore from trying to get himself up from floor in bathroom at home. OT- Coordination Assessment Comments Coordination Comments BUE WFL OT-Muscle Tone Assessment Muscle Tone WNL Yes OT Sensation Assessment Comments Summary Comments BUE WNL Edema Edema Present Edema Comments LLE edema noted in lower leg and foot M9 OT- IP Assessment and Plan Start: 09/15/19 17:57 Freq: Status: Active Protocol: Document 09/16/19 11:17 [facility] (Rec: 09/16/19 13:00 [facility] [id number]) OT Summary Assessment and Plan Potential Rehabilitation Potential Good Analytic Complexity at Evaluation Low Summary OT Impairments Balance,Functional Cognition, Functional Mobility,Dressing, Toileting,Bathing,Toilet Transfers,Shower Transfers Progress Towards Goals Progressing Toward Goals Assessment Summary Pt still having difficulty with safety awareness, sequencing through tasks of ADl's, and functional mobility . Pt needing MODA/MAX for LB dressing needs and would benefit from skilled rehab to continue to educated pt on safety for ADl and functional mobility needs as pt noted to have cognitive deficits and would benefit from repetition and practice to help decreased fall risk and increase his independence for needs. Pt still has left knee stiffness and decreased AROM thus decreased ability for ADL's and activity tolerance at this time. Goals Grooming Goal Independent Dressing Goal Independent,Long Handled Shoe Horn,Barrel Centerer,Sock Aid Toileting Goal Independent Bathing Goal Standby Assistance,Grab Bars, Hand Held Shower Sprayer,Long Handled Sponge or [place] Toilet Transfer Goal Independent,Raised Toilet Seat With Rails Shower Transfer Goal Standby Assistance,Tub/Shower Combination,Shower Chair,Tub Transfer Bench Patient/Caregiver Education Goal Demonstrate Post-Op Precautions,Demonstrate Energy Conservation and Pacing, Caregiver Independent Assisting Patient Days to Meet Goals 4 Frequency of Treatment Frequency Of Treatment Once a Day Treatment Plan OT Treatment Plan ADL Training,Functional Cognition Training,Functional Mobility,Patient/Family Education,Discharge Planning Other Treatment Recommendations and Next Shower Treatment Focus Discharge Recommendations OT Discharge Recommendations SNF Rehab Home Equipment Needs tub seat vs shower seat pending progress, grab bars, BSC over toilet
--- NOTE | 2019-09-16 11:29 | PT.IPTN ---
Physical Therapy Treatment Note M2 PT-IP Current Condition Start: 09/15/19 11:37 Freq: NEEDED Status: Active Protocol: Document 09/15/19 12:40 AW (Rec: 09/15/19 13:23 AW [id number]) Physical Therapy Current Condition Current Condition Evaluation Date 09/15/19 Treatment Diagnosis s/p left uni/medial knee replacement, difficulty in walking Precautions Other Precautions recent history of falls at home Weight Bearing Status Weight Bearing Status Weight Bear as Tolerated M3 PT-IP Subjective Start: 09/15/19 11:37 Freq: NEEDED Status: Active Protocol: Document 09/16/19 09:18 [facility] (Rec: 09/16/19 11:29 HH [id number]) Subjective Physical Therapy Visit Type Type Treatment Note Visit Start Time 09:18 Visit Stop Time 09:35 Total Visit Minutes 17 Notes Per nursing, Overnight nursing staff documented episodes of confusion and urinary incontinence. Physical Therapy Visit Comments Patient Comments Pt willing to work with therapy Therapy Pain Assessment Pain When Pain Assessed During Mobility Pain Present Pain Present Pain Reported Location left knee Scale Used rating not stated Pain Management Techniques Apply Cold,Re-positioning, Timing of Activity with Medications M4 PT-IP Mobility and Gait Start: 09/15/19 11:37 Freq: NEEDED Status: Active Protocol: Document 09/16/19 09:18 [facility] (Rec: 09/16/19 11:29 HH [id number]) PT-Transfer Assessment Sit to and From Stand Sit to and from Stand Contact Guard Assistance, Minimal Assistance,Use of Upper Extremities Equipment Transfer Assistive Device Gait Belt,Front Wheeled Walker Orthotic/Prosthetic Devices or Brace: No Transfers Transfer Destination Chair Transfer Technique pt ambulated with FWW Transfer Ability Level of Assist Contact Guard Assistance,Use of Upper Extremities Comments Mobility Comments Pt was up in chair upon assessment. He stood up with CGA/ min A by pushing off through B armrests. He was able to perform 5 x STS for 35 seconds without c/o too much pain. He did need cue to his walker close occasionally. Gait Assessment Gait Gait Assistance Required: Contact Guard Assist Distance (Feet) 100 Able to Maintain Weight Bearing Status Yes During Gait Assistive Devices Assistive Device Gait Belt,Front Wheeled Walker Orthotic/Prosthetic Devices or Brace: No Gait Deviations General Gait Pattern Antalgic,Decreased Stride Length,Decreased Feet Clearance,Flexed Trunk,Step-to Gait Factors Limiting Gait Function Factors Limiting Gait Function Decreased Activity Tolerance, Decreased Strength,Limited Range of Motion,Pain,Poor Balance,Poor Safety Awareness Comments Gait Comments Pt amb from room to hallway with FWW CGA. Pt started with step to gait pattern and progressed towards step over pattern. Pt needed multiple reminders to keep his walker close while amb and turns which demonstrates increase in fall risks. Stair Climbing Assessment Comments Stair Climbing Comments Not assessed. PT-Balance Assessment Sitting Balance and Reactions Static Sitting Balance Ability Good Dynamic Sitting Balance Ability Good Standing Balance and Reactions Static Standing Balance Ability Fair Dynamic Standing Balance Ability Fair Device Used FWW Functional Assessments Functional Tests 5 Times Sit to Stand 35s M5 PT-IP Objective Assessments Start: 09/15/19 11:37 Freq: NEEDED Status: Active Protocol: Document 09/15/19 12:40 AW (Rec: 09/15/19 13:23 AW [id number]) Orientation Orientation/Cognition Level of Alertness Alert Orientation Name,Date,Place,Situation Language Function Ability No Deficits Noted Safety Awareness Decreased Safety Awareness Memory Description Short Term Impaired Comments Pt able to recall 2/3 words independently (apple, table) and the 3rd word (césar) after two clues. Gross Range of Motion Upper Extremity ROM Assessment Within Functional Limits Lower Extremity ROM Assessment Left Impaired Strength Upper Extremity Strength Assessment Right Impaired Shoulder 4/5 secondary to pain Lower Extremity Strength Assessment Left Impaired Comments Strength Comments RLE grossly 4/5 Coordination Assessment Gross Coordination Gross Coordination WNL Assessment Finger to Nose Test Normal Performance Sensation Assessment Sensation Gross Sensation WNL M6 PT-IP Treatment Start: 09/15/19 11:37 Freq: NEEDED Status: Active Protocol: Document 09/15/19 12:40 AW (Rec: 09/15/19 13:23 AW [id number]) Physical Therapy Treatment Exercises Exercises Ankle Pumps,Quad Sets,Heel Slides,Passive Knee Extension Hang Education Education Provided Precautions,Weight Bearing Status,Safety M7 PT-IP Assessment and Plan Start: 09/15/19 11:37 Freq: NEEDED Status: Active Protocol: Document 09/16/19 09:18 [facility] (Rec: 09/16/19 11:29 HH [id number]) PT Summary Assessment and Plan Potential Rehabilitation Potential Good Status of Condition at Evaluation Evolving Summary Impairments Pain,ROM,Strength,Balance, Cognition,Bed Mobility, Transfers,Gait,Activity Tolerance Assessment Summary Pt is progressing with increased amb distance, but he cont needs cues for walker management and stand to sit descent to reduce his fall risks. In addition to his hx of multiple falls, short term rehab will be beneficial to pt to improve his mobility and strength prior to d.c home. Goals Bed Mobility Goal Independent Transfer Goal Standby Assistance,Front Wheeled Walker Gait Goal Standby Assistance,Front Wheel Walker Gait Distance 150 Days to Meet Goals 10 Frequency of Treatment Frequency Of Treatment Twice a Day Treatment Plan Physical Therapy Treatment Plan Bed Mobility Training,Transfer Training,Gait Training, Therapeutic Exercise,Balance Retraining,Post Op Education, Discharge Planning,Hot or Cold Pack,Neuromuscular Re-ed, Coordination Retraining,Manual Therapy Recommendations To Nursing Amount of Assist Needed 1 Person Assist Discharge Recommendations PT Discharge Recommendations Home with 24/7 Assist,Home Health,SNF Rehab Other Discharge Recommendations SNF rehab vs home with 24/7 and Equipment Needed for Home Before toilet riser Discharge
[2019-09-16] MEDS: INSULIN ASPART 100 UNIT/ML INSULN PEN SUBCUT (12:27)
--- NOTE | 2019-09-16 13:52 | PC.NURSE ---
Addendum entered by Regulo Simental R.N. 09/16/19 14:55: clean catch urine sample sent to lab Original Note: SHIFT NOTE: PATIENT HAD CXR THIS AM. ATTEMPTED TO COLLECT UA, BUT PATIENT WAS UP WITH OT TO THE SINK, AND THEN URGENTLY HAD TO URINATE AND ENDED UP RELEASING ALL OF URINE IN THE SINK BEFORE A CLEAN CATCH SPEC COULD BE OBTAINED. PATIENT DENIES NEED TO URINATE AT THIS TIME. ENCOURAGED PATIENT TO DRINK FLUIDS AND DISCUSSED PLAN TO OBTAIN UA SOON. PATIENT AGREEABLE.
[2019-09-16 14:59] LABS: Bacteria Urine None Seen; RBC Urine None Seen (0-5/HPF); WBC Urine None Seen (0-5/HPF)
[2019-09-16 15:01] LABS: Appearance Urine UA CLEAR; Bilirubin Urine UA NEGATIVE (NEGATIVE); Color Urine UA YELLOW; Glucose Urine UA NEGATIVE (Negative); Ketones Urine UA TRACE (NEGATIVE); Leukocyte Esterase Urine UA NEGATIVE (NEGATIVE); Nitrite Urine UA NEGATIVE (Negative); Occult Blood Urine UA TRACE-INTACT (Negative); Protein Urine UA TRACE (Negative); Specific Gravity Urine UA 1.015 (1.000-1.035); pH Urine UA 5.5 (4.5-8.0)
[2019-09-16 15:13] LABS: Culture Indicated Urine Cult Not Indicated
--- NOTE | 2019-09-16 15:49 | CM.DPC ---
DCP continued: EMR reviewed: Patients insurance denied the authorization for SNF. CM/RN contacted [facility] and jessy johnson to let them know. CM/Rn talked with patient and informed him of the authorization denial and asked patient if he would like HH possible to help when he is d/c home. Patient stated he was feeling fine and did not want any HH services. patient currently lives with his and his sister in-law. Cm/RN was told it was ok to speak with patients . CM called patients [facility] [phone] and explained that [place] denied the SNF authorization. Patient stated understanding but would like HH. CM explained to the patients that the patient denied HH services and stated he just wanted to go home. Patients stated she will talk with her romario and CM will f/u with patient in the AM to determine if HH referral is wanted. If HH wanted Patient stated they would [facility] and a Face to face will need to be signed. Fern Damon RN.
--- NOTE | 2019-09-16 16:59 | PC.NURSE ---
Addendum entered by Alia Olivia R.N. 09/16/19 23:46: Requests assistance to bathroom. Refuses to use urinal. One assist with walker and pt able to ambulate to bathroom to void. Continent. Returned to bed. Rates left knee pain 11/11. Tylenol provided. Declines elevation of LLE. Bed alarm set for pt safety. Original Note: O.T. in to see patient. Pt resting quietly in bed. Ice to left knee x 2. Noted erythema and edema to LLE. Admits to full sensation to BL LE's. Appropriate mentation and conversation. Bed alarm in place for pt safety. Urinal available @ bedside.
[2019-09-16] MEDS: SODIUM CHLORIDE 0.9% FLUSH 10 ML IV (21:44)
[2019-09-17 05:50] VITALS: BP 146/90; PULSE 61; RESP 20; TEMP 36.7; O2SAT 98
[2019-09-17] MEDS: ACETAMINOPHEN 325 MG TABLET 650 MG PO (08:36)
[2019-09-17] MEDS: ASPIRIN 325 MG TABLET PO (08:36)
[2019-09-17] MEDS: CLOPIDOGREL 75 MG TABLET PO (08:37)
[2019-09-17] MEDS: GLIMEPIRIDE 2 MG TABLET PO (08:37)
[2019-09-17 08:38] VITALS: BP 153/100; BP 153/103; PULSE 64; RESP 17; TEMP 36.9; O2SAT 98
[2019-09-17] MEDS: SODIUM CHLORIDE 0.9% FLUSH 10 ML IV (08:38)
[2019-09-17] MEDS: LISINOPRIL 10 MG TABLET 30 MG PO (08:38)
--- NOTE | 2019-09-17 09:59 | PM.PN.1 ---
Subjective Subjective Date Patient Seen: 09/17/19 Time Patient Seen: 10:00 Interval history: Essentially no change overall. Patient up with physical therapy yesterday unable do more than he was apparently upon admission. Recommendation from PT is that he be discharged home with 247 caregivers plus-minus home health and or group home. Patient's insurance company has refused authorized group home placement however. Patient would be unlikely to agree to going to group home anyway Still has some intermittent confusion which I think is baseline Hypertensive Exam Vital Signs (past 8 hours): - 09/17/19 05:50 09/17/19 08:38 Temperature 98.1 F 98.5 F Pulse Rate 61 64 Respiratory Rate 20 17 Blood Pressure 146/90 H 153/103 H Pulse Oximetry 98 98 Oxygen Delivery Method Room Air Oxygen Flow Rate 0 Narrative Exam Narrative: Unchanged from previous Objective Labs Result Diagrams: 09/15/19 00:10 09/15/19 00:10 Labs: Laboratory Results - last 24 hr 09/16/19 14:48 Urine Color Yellow Urine Appearance Clear Urine pH 5.5 Ur Specific [place] 1.015 Urine Protein Trace H Urine Glucose (UA) Negative Urine Ketones Trace H Urine Occult Blood Trace-intact Urine Nitrate Negative Urine Bilirubin Negative Urine Urobilinogen 1.0 Ur Leukocyte Esterase Negative Urine RBC None seen Urine WBC None seen Urine Bacteria None seen Ur Culture Indicated? Cult not indicated Assessment & Plan Assessment & Plan narrative: 1. Weakness after knee surgery-continue skilled therapies and management as per Orthopedic surgery. Does appear to be improved from status at time of admission. No evidence of surgical complication 2. Diabetes-adequate control 3. Hypertension-not well controlled. I am going to add hydrochlorothiazide to his regimen since he is nearing max dose lisinopril as well. If this fails to have a benefit either as an inpatient or outpatient could increase lisinopril to 40 mg twice daily which would be maximum dose but for now I am going to merely add hydrochlorothiazide 4. Cognition-patient appears to be mostly oriented. I do believe there is an element of underlying cognitive dysfunction as stated previously. Will plan to evaluate this as an outpatient 5. Disposition-overall patient is improved from status time of admission. Still think he would benefit from group home but that is not an option given refusal of his insurance company to cover same. Therefore will go home with home health services if I can convince patient to agree to that From a medical standpoint patient is ready for discharge any time. There are no medical reasons why patient could not be discharged home when cleared by Orthopedic surgery per usual protocols for his surgery. He remains in the hospital for continued rehabilitation to improve his safety at home, but could be discharged when deemed appropriate by Orthopedic surgery. I have completed most of his discharge medications but is still needs something for pain to be prescribed upon discharge. All of his other medications are updated and should be unchanged from what's listed currently. I would like to see the patient back in clinic in about 2 weeks following discharge. Quality VTE Deep Vein Thrombosis/Pulmonary Embolism Present on Admission: No
--- NOTE | 2019-09-17 11:15 | PT.IPTN ---
Physical Therapy Treatment Note M2 PT-IP Current Condition Start: 09/15/19 11:37 Freq: NEEDED Status: Active Protocol: Document 09/15/19 12:40 AW (Rec: 09/15/19 13:23 AW [id number]) Physical Therapy Current Condition Current Condition Evaluation Date 09/15/19 Treatment Diagnosis s/p left uni/medial knee replacement, difficulty in walking Precautions Other Precautions recent history of falls at home Weight Bearing Status Weight Bearing Status Weight Bear as Tolerated M3 PT-IP Subjective Start: 09/15/19 11:37 Freq: NEEDED Status: Active Protocol: Document 09/17/19 10:40 DCW (Rec: 09/17/19 11:26 DCW [id number]) Subjective Physical Therapy Visit Type Type Treatment Note Visit Start Time 10:40 Visit Stop Time 11:15 Total Visit Minutes 35 Number of COURTROOM CLERK Visits 0 Physical Therapy Visit Comments Patient Comments I'm doing pretty good. My pain is only a 1/10. Therapy Pain Assessment Pain When Pain Assessed During Weight Bearing Pain Present Pain Present Pain Reported Location left knee Intensity 1 Scale Used Numeric (1 - 10) M4 PT-IP Mobility and Gait Start: 09/15/19 11:37 Freq: NEEDED Status: Active Protocol: Document 09/17/19 10:40 DCW (Rec: 09/17/19 11:26 DCW [id number]) PT-Transfer Assessment Sit to and From Stand Sit to and from Stand Standby Assistance,Use of Upper Extremities Equipment Transfer Assistive Device Gait Belt,Front Wheeled Walker Orthotic/Prosthetic Devices or Brace: No Comments Mobility Comments Bed mobility and transfers SBA . Gait Assessment Gait Gait Assistance Required: Standby Assistance Distance (Feet) 235 Able to Maintain Weight Bearing Status Yes During Gait Assistive Devices Assistive Device Gait Belt,Front Wheeled Walker Orthotic/Prosthetic Devices or Brace: No Gait Deviations General Gait Pattern Decreased Stride Length, Decreased Feet Clearance, Flexed Trunk Comments Gait Comments Pt demonstrated much improvement with utilizing FWW , did not require reminders to stay inside FWW, demonstrated good step-through gait pattern. M5 PT-IP Objective Assessments Start: 09/15/19 11:37 Freq: NEEDED Status: Active Protocol: Document 09/15/19 12:40 AW (Rec: 09/15/19 13:23 AW [id number]) Orientation Orientation/Cognition Level of Alertness Alert Orientation Name,Date,Place,Situation Language Function Ability No Deficits Noted Safety Awareness Decreased Safety Awareness Memory Description Short Term Impaired Comments Pt able to recall 2/3 words independently (apple, table) and the 3rd word (césar) after two clues. Gross Range of Motion Upper Extremity ROM Assessment Within Functional Limits Lower Extremity ROM Assessment Left Impaired Strength Upper Extremity Strength Assessment Right Impaired Shoulder 4/5 secondary to pain Lower Extremity Strength Assessment Left Impaired Comments Strength Comments RLE grossly 4/5 Coordination Assessment Gross Coordination Gross Coordination WNL Assessment Finger to Nose Test Normal Performance Sensation Assessment Sensation Gross Sensation WNL M6 PT-IP Treatment Start: 09/15/19 11:37 Freq: NEEDED Status: Active Protocol: Document 09/17/19 10:40 DCW (Rec: 09/17/19 11:26 DCW [id number]) Physical Therapy Treatment Exercises Exercises Ankle Pumps,Heel Slides,Seated Knee Flexion/Extension Knee ROM Measurement 2-97? Other Treatments Other Treatment Performed Seated Marching, LAQ M7 PT-IP Assessment and Plan Start: 09/15/19 11:37 Freq: NEEDED Status: Active Protocol: Document 09/17/19 10:40 DCW (Rec: 09/17/19 11:26 DCW [id number]) PT Summary Assessment and Plan Potential Rehabilitation Potential Good Status of Condition at Evaluation Evolving Summary Impairments Pain,ROM,Strength,Balance, Cognition,Bed Mobility, Transfers,Gait,Activity Tolerance Assessment Summary Pt agreeable to treatment and walking today. Bed mobility and transfers SBA. Pt demonstrated much improvement with utilizing FWW, did not require reminders to stay inside FWW, demonstrated good step-through gait pattern. Pt performed all exercises/tasks requested today, reports of minimal 1/10 pain. Pt left in his bed with the call cohen in reach and the bed alarm on. Goals Bed Mobility Goal Independent Transfer Goal Standby Assistance,Front Wheeled Walker Gait Goal Standby Assistance,Front Wheel Walker Gait Distance 150 Days to Meet Goals 10 Frequency of Treatment Frequency Of Treatment Twice a Day Treatment Plan Physical Therapy Treatment Plan Bed Mobility Training,Transfer Training,Gait Training, Therapeutic Exercise,Balance Retraining,Post Op Education, Discharge Planning,Hot or Cold Pack,Neuromuscular Re-ed, Coordination Retraining,Manual Therapy Recommendations To Nursing Amount of Assist Needed 1 Person Assist Discharge Recommendations PT Discharge Recommendations Home with 24/7 Assist,Home Health Other Discharge Recommendations home with 24/7 and Equipment Needed for Home Before toilet riser Discharge
[2019-09-17] MEDS: INSULIN ASPART 100 UNIT/ML INSULN PEN SUBCUT (11:28)
[2019-09-17] MEDS: hydroCHLOROthiazide 25 MG TABLET PO (11:28)
[2019-09-17 11:54] VITALS: BP 156/83; PULSE 65; RESP 17; TEMP 36.9; O2SAT 97
--- NOTE | 2019-09-17 14:15 | PT.IPTN ---
Physical Therapy Treatment Note M2 PT-IP Current Condition Start: 09/15/19 11:37 Freq: NEEDED Status: Active Protocol: Document 09/15/19 12:40 AW (Rec: 09/15/19 13:23 AW [id number]) Physical Therapy Current Condition Current Condition Evaluation Date 09/15/19 Treatment Diagnosis s/p left uni/medial knee replacement, difficulty in walking Precautions Other Precautions recent history of falls at home Weight Bearing Status Weight Bearing Status Weight Bear as Tolerated M3 PT-IP Subjective Start: 09/15/19 11:37 Freq: NEEDED Status: Active Protocol: Document 09/17/19 13:46 DCW (Rec: 09/17/19 14:15 DCW [email or web address]) Subjective Physical Therapy Visit Type Type Treatment Note Visit Start Time 13:46 Visit Stop Time 14:07 Total Visit Minutes 21 Number of FLIGHT READINESS TECHNICIAN Visits 0 Physical Therapy Visit Comments Patient Comments I feel pretty much the same as I did this morning. Not much pain at all. M4 PT-IP Mobility and Gait Start: 09/15/19 11:37 Freq: NEEDED Status: Active Protocol: Document 09/17/19 13:46 DCW (Rec: 09/17/19 14:15 DCW [id number]) PT-Transfer Assessment Sit to and From Stand Sit to and from Stand Standby Assistance,Use of Upper Extremities Equipment Transfer Assistive Device Gait Belt,Front Wheeled Walker Orthotic/Prosthetic Devices or Brace: No Transfers Transfer Destination Bed,Toilet Transfer Technique pt ambulated with FWW Comments Mobility Comments Bed mobility and transfers Ind . Gait Assessment Gait Gait Assistance Required: Standby Assistance Distance (Feet) 240 Able to Maintain Weight Bearing Status Yes During Gait Assistive Devices Assistive Device Gait Belt,Front Wheeled Walker Orthotic/Prosthetic Devices or Brace: No Gait Deviations General Gait Pattern Decreased Stride Length, Decreased Feet Clearance, Flexed Trunk Comments Gait Comments Pt required one verbal cue to stop walking far behind his walker, but overal showing great improvment, ambulated 240' SBA /c FWW M5 PT-IP Objective Assessments Start: 09/15/19 11:37 Freq: NEEDED Status: Active Protocol: Document 09/15/19 12:40 AW (Rec: 09/15/19 13:23 AW [id number]) Orientation Orientation/Cognition Level of Alertness Alert Orientation Name,Date,Place,Situation Language Function Ability No Deficits Noted Safety Awareness Decreased Safety Awareness Memory Description Short Term Impaired Comments Pt able to recall 2/3 words independently (apple, table) and the 3rd word (césar) after two clues. Gross Range of Motion Upper Extremity ROM Assessment Within Functional Limits Lower Extremity ROM Assessment Left Impaired Strength Upper Extremity Strength Assessment Right Impaired Shoulder 4/5 secondary to pain Lower Extremity Strength Assessment Left Impaired Comments Strength Comments RLE grossly 4/5 Coordination Assessment Gross Coordination Gross Coordination WNL Assessment Finger to Nose Test Normal Performance Sensation Assessment Sensation Gross Sensation WNL M6 PT-IP Treatment Start: 09/15/19 11:37 Freq: NEEDED Status: Active Protocol: Document 09/17/19 10:40 DCW (Rec: 09/17/19 11:26 DCW [id number]) Physical Therapy Treatment Exercises Exercises Ankle Pumps,Heel Slides,Seated Knee Flexion/Extension Knee ROM Measurement 2-97? Other Treatments Other Treatment Performed Seated Marching, LAQ M7 PT-IP Assessment and Plan Start: 09/15/19 11:37 Freq: NEEDED Status: Active Protocol: Document 09/17/19 13:46 DCW (Rec: 09/17/19 14:15 DCW [email or web address]) PT Summary Assessment and Plan Potential Rehabilitation Potential Good Status of Condition at Evaluation Evolving Summary Impairments Pain,ROM,Strength,Balance, Cognition,Bed Mobility, Transfers,Gait,Activity Tolerance Assessment Summary Pt agreeable to treatment and walking today. Pt independent with transfers at this time. Pt ambulated to bathroom FWW SBA and was able to void and perform pericare, as well as standing at the sink and washing his hands, with I/SBA. Pt will likely be discharging from the hospital today or tomorrow. Pt would still likely benefit from home health, in order to help with self care and decrease burden of care on his . Pt left in his bed with the call cohen in reach and the bed alarm on. Goals Bed Mobility Goal Independent Transfer Goal Standby Assistance,Front Wheeled Walker Gait Goal Standby Assistance,Front Wheel Walker Gait Distance 150 Days to Meet Goals 10 Frequency of Treatment Frequency Of Treatment Twice a Day Treatment Plan Physical Therapy Treatment Plan Bed Mobility Training,Transfer Training,Gait Training, Therapeutic Exercise,Balance Retraining,Post Op Education, Discharge Planning,Hot or Cold Pack,Neuromuscular Re-ed, Coordination Retraining,Manual Therapy Recommendations To Nursing Amount of Assist Needed 1 Person Assist Discharge Recommendations PT Discharge Recommendations Home with 24 Assist,Home Health Other Discharge Recommendations home with 24 and Equipment Needed for Home Before toilet riser Discharge
--- NOTE | 2019-09-17 14:34 | PM.DS.1 ---
History of Present Illness History of Present Illness Date Patient Seen: 09/17/19 Time Patient Seen: 07:06 Chief complaint: Multiple falls, s/p knee surgery Narrative: The patient underwent a left knee unicompartmental medial partial knee replacement yesterday. He has returned home, he is struggling. He uses a walker and is on pain medications. He has had multiple falls. He is using a walker when up, and using walker to pull himself up when necessary. In comes by Bryant who to left knee pain and swelling. the knee is not brace. A bandage is in place. There is redness and swelling, but he has no fever. He denies chest pain or dyspnea. He has no numbness or weakness in the leg. No acute events overnight. Patient complains of pain in left knee. Mobilizing with PT/OT. No complaints Patient denies fever, chills, confusion, numbness, tingling, chest pain, shortness of breath, calf pain. Discharge Providers Provider Date of admission: 09/15/19 06:16 Discharge Date: 09/17/19 Primary care physician: Butch Sebastian MD Consults: 09/15/19 09:02 Consult to Physical Therapy Evaluate & Treat Comment: unicompartmental knee, wt bearing as tolerated Physician Instructions: Evaluate and Treat 09/15/19 10:26 Consult to Physician Routine Comment: Consulting Provider: Butch Sebastian Reason for consultation: Patient's PCP Has provider been notified: Yes 09/15/19 13:14 Consult to Occupational Therapy Evaluate & Treat Comment: Physician Instructions: Evaluate and treat Discharge provider: Kayden Clifford PA-C Summary Hospital Course Discharge Diagnosis: s/p left unicompartmental knee arthroplasty post-op pain poor balance frequent falls chronic renal failure, stage 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 Patient had CBC, CMP, ESR, UA CRP, CT head and telemetry - unremarkable results. Nurses documented episodes of confusion and urinary incontinence. Patient progressed slowly with PT/OT secondary to possible cognitive issues. On 09/17 patient was considered medically stable and hospitalist signed off. Patient was ready for discharge on 09/17 from a orthopedic surgery perspective. Mobilizing with PT/OT prior to discharge. Voiding without difficulty or assistance prior to discharge. Pain well controlled. Patient has oxycodone at home. Surgical complications ruled out. Aspirin 81 mg BID for DVT prophylaxis. Patient discharged with home health services - PT/OT. Status at Discharge Cognitive/behavioral status at discharge: oriented Functional status at discharge: uses cane/walker Overall status at discharge: patient is progressing back to baseline Time Spent with Patient Time spent: Less than 30 minutes Exam Vital Signs (past 8 hours): - 09/17/19 08:38 09/17/19 11:54 Temperature 98.5 F 98.4 F Pulse Rate 64 65 Respiratory Rate 17 17 Blood Pressure 153/103 H 156/83 H Pulse Oximetry 98 97 Oxygen Delivery Method Room Air Oxygen Flow Rate 0 Narrative Exam Narrative: 78 year old male with flat affect is sitting comfortably in chair, eating breakfast, in no apparent distress. A&Ox3. Able to actively dorsiflex/plantar flex. Capillary refill <2sec LE bl. Dorsalis pedis 2+ b/l. Dressing intact and in place, with shadow drainage. L LE - mild non pitting edema, warm, with mild echymosis by the incision site. Objective Labs Result Diagrams: 09/15/19 00:10 09/15/19 00:10 Labs: Laboratory Results - last 24 hr 09/16/19 14:48 Urine Color Yellow Urine Appearance Clear Urine pH 5.5 Ur Specific [place] 1.015 Urine Protein Trace H Urine Glucose (UA) Negative Urine Ketones Trace H Urine Occult Blood Trace-intact Urine Nitrate Negative Urine Bilirubin Negative Urine Urobilinogen 1.0 Ur Leukocyte Esterase Negative Urine RBC None seen Urine WBC None seen Urine Bacteria None seen Ur Culture Indicated? Cult not indicated Discharge Plan Discharge Plan Patient Disposition: Home Health Service Discharge orders & Medications Prescriptions: New hydrochlorothiazide 25 mg Tablet 25 mg PO DAILY Qty: 90 RF: 3 Continued lisinopril 30 mg tablet 30 mg PO BID Qty: 180 RF: 3 glimepiride 2 mg tablet 2 mg PO Q DAY Qty: 90 RF: 3 (DME) Test Strips - True Metrix 0 .Route .MEDSUPPLY Qty: 100 RF: 3 Lantus U-100 Insulin 100 unit/mL solution 12 - 14 unit subcut SEE INSTRUCTIONS Qty: 5 RF: 11 atorvastatin 20 mg tablet See Rx Instructions .ROUTE .COMPLEX Qty: 90 RF: 3 aspirin 325 mg tablet 325 mg PO DAILY RF: 0 (DME) insulin syringe-needle U-100 [BD Insulin Syringe] 0.3 mL 29 gauge x 1/2 Syringe RF: 0 clopidogrel 75 mg Tablet 75 mg PO DAILY RF: 0 Syringes: 1cc Insulin Syringes with [place] 1 syr QPM RF: 0 Discontinued oxycodone 5 mg capsule 5 mg PO Q6H PRN (Reason: pain) Qty: 30 RF: 0 Follow up/Referrals: Butch Sebastian MD [Primary Care Provider] - Jennifer Damon MD [Physician] - Diet/Activity/Treatments Diet: Carb-consistent/Diabetic Activity: weight bearing as tolerated. unicompartmental knee arthroplasty precautions. use walker. Cold/Heat Therapy: continue cold/heat therapy as needed Skin/Wound/Dressing Care Report to your healthcare provider any signs of infection, such as:: chills, fever, increased pain, unusual drainage and unusual redness Dressing: keep dressing dry, can use shower. don't soak (e.g. bath). if saturated, contact office. Visit Report/Discharge Packet Instructions: Recommendations to Help Prevent High Blood Pressure, Essential Hypertension, How to Prevent Falls, DI for Knee Pain, Hydrochlorothiazide Discharge Data Primary Care Provider: Butch Sebastian Attending Provider: Mike Live Admit Date/Time: 09/15/19 06:16 Discharges patient from system. Discharge Date/Time: 09/17/19 15:45 Quality VTE Deep Vein Thrombosis/Pulmonary Embolism Present on Admission: No
--- NOTE | 2019-09-17 14:38 | CM.DPNOTE ---
Addendum entered by Fern Damon R.N. 09/17/19 15:21: CM/RN met with patient at the bedside and discussed D/C plan for home with HH. Patient stated understanding and agreement with the plan. [facility] pamphlet given to patient and his . Face to face placed in folder for Shena to scan on Thursday09/19/2019. Fern Damon RN Original Note: DCP continued: EMR Reviewed: patient met with Dr. Sebastian this morning and discussed HH services. Patient agreed to having HH services with Dr. Sebastian. Patient given HH list and chose [facility]. CM/RN sent clinicals for [facility] to review. Face to Face singed by Dr. Damon. [facility] called back and they can accept patient for HH services, patient should be D/C today 09/17/2019, CM faxed face to face, dc summary and HH orders to [facility]. Fern Damon RN.
--- NOTE | 2019-09-17 15:18 | OT.IP.TRT ---
Occupational Therapy Treatment Note M2 OT-IP Current Condition Start: 09/15/19 17:57 Freq: Status: Active Protocol: Document 09/15/19 15:10 PJM (Rec: 09/15/19 18:30 PJM [id number]) Occupational Therapy Current Condition Current Condition Evaluation Date 09/15/19 Treatment Diagnosis decr'd self care, mobility w/ multiple falls S/P unipolar L knee replacement Diagnosis Onset Date 09/13/19 Post Operative Precautions Other Precautions fall risk, decreased insight Weight Bearing Status Weight Bearing Status Weight Bear as Tolerated M3 OT- IP Subjective and Pain Start: 09/15/19 17:57 Freq: Status: Active Protocol: Document 09/17/19 15:10 CGR (Rec: 09/17/19 15:18 CGR [id number]) OT- Subjective Occupational Therapy Visit Type Type Administrative Note Notes Went to see pt as he was dressing for discharge. Pt's voiced concern for pt's incontinence/urgency. Discussed briefly with pt and pt's explaining and urgency and quick movements could lead to falls. Recommended use of briefs till pt is more mobile and provided with a few briefs to use till she is able to get some from the store. No charge for OT services on this limited visit.
--- NOTE | 2019-09-17 16:05 | PC.NURSE ---
Discharge Note Pt A&O, VSS, RA. No complaints of pain or discomfort. Discharge instructions given, no questions or concerns. Belongings packed and given to . Pt taken down to personal vehicle via wheelchair.
== END 2019-09-17 15:45 | disposition home health service (06) ==
LOC: ED 09-15 06:07 → AC 09-15 06:16
PROVIDERS: Admitting Provider Orthopaedic Surgery Adult Reconstructive Orthopaedic Surgery; Emergency Provider Emergency Medicine; Family Provider Internal Medicine; PCP Internal Medicine; Visit Provider Orthopaedic Surgery Adult Reconstructive Orthopaedic Surgery
DX: R53.1 Weakness (principal); W18.30XA Fall on same level, unspecified, initial encounter; Z91.81 History of falling; N18.2 Chronic kidney disease, stage 2 (mild); I12.9 Hypertensive chronic kidney disease with stage 1 through stage 4 chronic kidney disease, or unspecified chronic kidney disease; E66.9 Obesity, unspecified; E11.22 Type 2 diabetes mellitus with diabetic chronic kidney disease; I69.351 Hemiplegia and hemiparesis following cerebral infarction affecting right dominant side; I69.320 Aphasia following cerebral infarction; I10 Essential (primary) hypertension; E78.5 Hyperlipidemia, unspecified
CPT/HCPCS: 70496; 71046; 73562; 80053; 81001; 82962; 85025; 85651; 86140; 96372; 96374; 97110; 97116; 97162; 97166; 97530; 97535; 99219; 99223; 99225; 99233; 99283; 99284; G0378; J1885; Q9967

== ENCOUNTER → 2019-09-20 12:42 | Outpatient (CLI) | payer OTHER, SELFPAY ==
[2019-09-15 08:14] VITALS: BMI 30.4
[2019-09-20 13:39] LABS: Add Manual Diff / Slide Review NO; Basophils Absolute Auto 100 /uL (0-100); Eosinophils Absolute Auto 100 /uL (0-450); Eosinophils Percent Auto 2.5 % (2-4); Hematocrit 37.3 % (41-53); Hemoglobin 12.5 g/dL (13.5-17.5); Lymphocytes Absolute Auto 1300 /uL (1100-4500); Lymphocytes Percent Auto 25.2 % (25-40); Mean Corpuscular HGB Conc 33.6 % (30-36); Mean Corpuscular Hemoglobin 31.7 PG (26-34); Mean Corpuscular Volume 94.3 fL (80-100); Monocytes Absolute Auto 600 /uL (0-900); Monocytes Percent Auto 10.9 % (3-14); Neutrophils Absolute Auto 3100 /uL (1500-7000); Neutrophils Percent Auto 60.4 % (50-75); Platelet Count 326 X10^3/uL (150-400); Red Blood Cell Count 3.96 X10^6/uL (4.5-5.9); Red Cell Distribution Width 13.8 % (11.6-14.8); White Blood Cell Count 5.2 X10^3/uL (4.5-11.0)
[2019-09-20 13:45] LABS: C-Reactive Protein Quant 2.1 mg/dL (<1.0)
[2019-09-20 14:06] LABS: Erythrocyte Sedimentation Rate 36 MM/HR (0-15)
== END ==
PROVIDERS: Family Provider Internal Medicine; PCP Internal Medicine; Visit Provider Physician Assistant Surgical
DX: L03.116 Cellulitis of left lower limb (principal); M17.12 Unilateral primary osteoarthritis, left knee
CPT/HCPCS: 36415; 85025; 85651; 86140

== ENCOUNTER 2019-10-06 10:57 | Outpatient (RCR) | payer OTHER, SELFPAY ==
[2019-09-15 08:14] VITALS: BMI 30.4
--- NOTE | 2019-10-06 12:12 | PT.OIE ---
Current Diagnoses Unilateral primary osteoarthritis, left knee (10/06/19) Presence of left artificial knee joint (10/06/19) Past Medical History (Last Reviewed 09/15/19 @ 10:26 by Butch Sebastian MD) Benign prostatic hyperplasia (Chronic 09/06/14) Chronic renal failure, stage 2 (mild) (Chronic) Class 1 obesity (Chronic 03/24/17) CVA (cerebral vascular accident) (Resolved) Essential hypertension (Chronic) Hyperlipidemia with target low density lipoprotein (LDL) cholesterol less than 70 mg/dL (Chronic 03/24/17) Personal history of stroke with current residual effects (Chronic 09/03/11) Primary osteoarthritis of both knees (Chronic 11/05/17) Primary osteoarthritis of left knee (Chronic 10/19/17) 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) Visit Care Team Role Provider Type Butch Sebastian MD Family Provider Physician Primary Care Provider Specialty: Internal Medicine Address: [address] [place] [address], [facility] Email: [email or web address] Damon MD Attending Provider Physician Specialty: Orthopedic Surgery Address: [address] [place] [address], [id number] Email: [email or web address] Physical Therapy Initial Evaluation PT-OP-A Visit Information Start: 10/06/19 08:42 Freq: Status: Active Protocol: Document 10/06/19 11:20 HH (Rec: 10/06/19 12:11 [id number]) Out-Patient Physical Therapy Visit Information Visit Information Visit Type Initial Evaluation Visit Start Time 11:20 Visit Stop Time 11:45 Total Visit Minutes 25 Visit Number 1 Evaluation Information Evaluation Date 10/06/19 PT-OP-B Current Condition Start: 10/06/19 08:42 Freq: Status: Active Protocol: Document 10/06/19 11:20 HH (Rec: 10/06/19 12:11 [id number]) Current Condition History of Current Condition Onset Date 09/13/19 Current Complaints s/p L partial knee replacement , low level pain after prolonged walking History of Current Condition Pt is 78yo male s/p L knee unicompartmental medial partial knee replacement at on 09/13/19. Pt presents to clinic today w/o any complaints and very satisfied with his current progress. Pt saw his surgeon Dr. Damon 2 weeks ago who was also d/c from last week. Both parties are satisfied with his improvements at this point. Pt did have complicated hospitalization that He was d/ c home after surgery for a day but readmiited to due to weakness and difficulty getting out of his toilet seat . He was unable to get himself up on his own and medics were summoned. Pt stayed at for 3 days and was d/c home with . EMR shows pt had multiple falls and he was somewhat confused during hospitalization. Treatment Goals Patient/Caregiver Goals Pt states he has no concern/ limitation at this point Prior Functional Status Baseline Function- ADL's Independent Baseline Function- Mobility Independent Baseline Function- Gait independent with all mobility without AD prior to sx on . Current Functional Impairments (Reported) Functional Limitations- Mobility/Gait Amb without AD with normal gait except decreased B step length. PT-OP-C Subjective Start: 10/06/19 08:42 Freq: Status: Active Protocol: Document 10/06/19 11:20 (Rec: 10/06/19 12:11 [id number]) OP-PT Subjective Patient Comments Patient Comments I honestly feel pretty good in general and very surprised of my progress. I am able to do everything without pain. Patient Questionnaires Lower Extremity Functional Scale LEFS Score 69 LEFS Impairment 1 to 19% Impaired (Score 63-79 ) OP-PT Pain Assessment Location left knee Pain Location Details L knee joint Intensity 1 Scale Used Numeric (1 - 10) Description Dull Frequency Rarely Pain Aggravating Factors Walking Pain Alleviating Factors Inactivity Comments Pain Comments very low level pain only after prolonged walking. PT-OP-D Balance Start: 10/06/19 08:42 Freq: Status: Active Protocol: Document 10/06/19 11:20 (Rec: 10/06/19 12:11 [id number]) Balance Tests Single Limb Standing Single Limb- Right 2s Single Limb- Left 5s PT-OP-E Functional Tests Start: 10/06/19 08:42 Freq: Status: Active Protocol: Document 10/06/19 11:20 (Rec: 10/06/19 12:11 [id number]) Functional Tests Five Times Sit to Stand Test Score 14s Comments without UE Timed Up and Go (TUG) Score 10s TUG Impairment Rating 0% Impaired (Score 10) PT-OP-F Manual Assessment Start: 10/06/19 08:42 Freq: Status: Active Protocol: Document 10/06/19 11:20 HH (Rec: 10/06/19 12:11 [id number]) Manual Assessments Soft Tissue Assessment Soft Tissue Mobility Assessment warm to touch at L knee joint PT-OP-G Mobility & Gait Start: 10/06/19 08:42 Freq: Status: Active Protocol: Document 10/06/19 11:20 HH (Rec: 10/06/19 12:11 [id number]) Stair Climbing Evaluation Devices Stair Climbing Assistive Devices None Technique/Endurance Stair Climbing Direction Ascend and Descend Stair Climbing Technique Step Over Step PT-OP-H Neuro Start: 10/06/19 08:42 Freq: Status: Active Protocol: Document 10/06/19 11:20 (Rec: 10/06/19 12:11 [id number]) Sensation Evaluation Gross Sensation Gross Sensation WNL PT-OP-K Range of Motion Start: 10/06/19 08:42 Freq: Status: Active Protocol: Document 10/06/19 11:20 HH (Rec: 10/06/19 12:11 [id number]) Knee Goniometric Range of Motion Knee Right Knee ROM WFL Yes Patient Position Supine Flexion Active (degrees) 130 Extension Active (degrees) 0 Left Knee ROM WFL Yes Patient Position Supine Flexion Active (degrees) 125 Extension Active (degrees) 2 PT-OP-M Strength Start: 10/06/19 08:42 Freq: Status: Active Protocol: Document 10/06/19 11:20 HH (Rec: 10/06/19 12:11 [id number]) Knee Strength Knee Manual Muscle Testing Right Flexion (S2) 5 Normal Extension (L3) 5 Normal Left Flexion (S2) 5 Normal Extension (L3) 5 Normal PT-OP-Q Treatments Start: 10/06/19 08:42 Freq: Status: Active Protocol: Document 10/06/19 11:20 HH (Rec: 10/06/19 12:11 [id number]) Self-Care/Home Management Treatment Education Patient Education Home Exercise Program Other Education Review HEP given from home health PT including long arc ext, flexion, and unsupported sit to stand. Pt demonstrates good understanding and good bodymechanics. PT-OP-T Assessment and Plan Start: 10/06/19 08:42 Freq: Status: Active Protocol: Document 10/06/19 11:20 (Rec: 10/06/19 12:11 [id number]) Physical Therapy Assessment Rehab Potential Rehabilitation Potential Excellent Evaluation Complexity Number of Personal Factors/Comorbidities 1-2 Number of Body Systems Impaired 1-2 Clinical Presentation at Evaluation Stable Impairments Impairments Activity Tolerance,Balance,ROM Assessment Summary Assessment Pt is a low complexity evaluation only who is s/p L unilateral medial compartment knee replacement on 09/13/19. Upon assessment, pt reports he has no functional limitation and complaints at this point and able to be fully independent with home and community mobility without using AD. Functional tests including 5x STS unsupported= 14s, TUG= 10s, stair climbing are WNLs; AROM 2-125 degrees WFL; SLS LLE (5s) > RLE (2s). Pt scores 69 on LEFS with limitation on running only (pt is not a runner). Pt also has a very thorough HEP from home health PT that addresses quad and hamstrings strength, STS and SLS balancing training. Pt stated he does not have any concern at this point and very satisfied with his current progress. He does not have the need of skilled therapy at this point and he agreed and will cont his HEP to improve his mobility and strength. Physical Therapy Plan Discharge Physical Therapy Discharge Comments see assessment summary.
== END 2019-10-06 12:52 ==
LOC: PHYS 10:57
PROVIDERS: Family Provider Internal Medicine; PCP Internal Medicine; Visit Provider Orthopaedic Surgery
DX: Z96.652 Presence of left artificial knee joint (principal); M17.12 Unilateral primary osteoarthritis, left knee
CPT/HCPCS: 97161

== ENCOUNTER → 2020-02-13 09:03 | Outpatient (CLI) | payer OTHER, SELFPAY ==
[2019-09-15 08:14] VITALS: BMI 30.4
[2020-02-13 10:46] LABS: Alanine Aminotransferase 12 IU/L (<50); Albumin 3.9 g/dL (3.5-5.0); Albumin Globulin Ratio 1.3 (1.0-2.8); Alkaline Phosphatase 62 U/L (38-126); Aspartate Aminotransferase 22 IU/L (17-59); BUN Creatinine Ratio 12.8 (6-22); Bilirubin Total 0.8 mg/dL (0.2-1.3); Blood Urea Nitrogen 15 mg/dL (9-20); Calcium 8.6 mg/dL (8.4-10.2); Carbon Dioxide 26 mmol/L (22-32); Chloride 110 mmol/L (98-107); Cholesterol 130 mg/dL (140-199); Estimated Glomerular Filt Rate 59.8 mL/min (>60); Glucose 102 mg/dL (80-110); HDL Cholesterol 54 mg/dL (40-60); HEMOLYSIS < 15 (0-50); LDL Cholesterol Calculated 62 mg/dL (<100); Potassium 4.6 mmol/L (3.4-5.1); Sodium 143 mmol/L (137-145); Total Protein 6.9 g/dL (6.3-8.2); Triglycerides 70 mg/dL (35-150)
[2020-02-13 10:51] LABS: Hemoglobin A1C% w Est Avg Glu 5.9 % (4.0-6.0)
== END ==
PROVIDERS: Family Provider Internal Medicine; PCP Internal Medicine; Referring Provider Internal Medicine; Visit Provider Internal Medicine
DX: E11.22 Type 2 diabetes mellitus with diabetic chronic kidney disease (principal); E78.5 Hyperlipidemia, unspecified; N18.2 Chronic kidney disease, stage 2 (mild)
CPT/HCPCS: 36415; 80053; 80061; 83036

== ENCOUNTER → 2020-08-10 10:15 | Outpatient (CLI) | payer OTHER, SELFPAY ==
[2019-09-15 08:14] VITALS: BMI 30.4
[2020-08-10 11:00] LABS: Hemoglobin A1C% w Est Avg Glu 5.9 % (4.0-6.0)
[2020-08-10 11:02] LABS: BUN Creatinine Ratio 13.5 (6-22); Blood Urea Nitrogen 15 mg/dL (9-20); Calcium 8.3 mg/dL (8.4-10.2); Carbon Dioxide 24 mmol/L (22-32); Chloride 109 mmol/L (98-107); Estimated Glomerular Filt Rate > 60.0 mL/min (>60); Glucose 102 mg/dL (80-110); HEMOLYSIS < 15 (0-50); Potassium 4.1 mmol/L (3.4-5.1); Sodium 139 mmol/L (137-145)
== END ==
PROVIDERS: Family Provider Internal Medicine; PCP Internal Medicine; Referring Provider Internal Medicine; Visit Provider Internal Medicine
DX: E11.22 Type 2 diabetes mellitus with diabetic chronic kidney disease (principal); I10 Essential (primary) hypertension
CPT/HCPCS: 36415; 80048; 83036

== ENCOUNTER → 2020-11-09 15:59 | Outpatient (CLI) | payer OTHER, SELFPAY ==
[2020-08-13 11:42] VITALS: BMI 30.4
[2020-11-09 18:12] LABS: Hemoglobin A1C% w Est Avg Glu 6.5 % (4.0-6.0)
[2020-11-09 18:30] LABS: BUN Creatinine Ratio 16.1 (6-22); Blood Urea Nitrogen 19 mg/dL (9-20); Carbon Dioxide 28 mmol/L (22-32); Chloride 106 mmol/L (98-107); Estimated Glomerular Filt Rate 59.1 mL/min (>60); Glucose 96 mg/dL (80-110); HEMOLYSIS < 15 (0-50); Potassium 4.4 mmol/L (3.4-5.1); Sodium 139 mmol/L (137-145)
== END ==
PROVIDERS: Family Provider Internal Medicine; PCP Internal Medicine; Referring Provider Internal Medicine; Visit Provider Internal Medicine
DX: E11.65 Type 2 diabetes mellitus with hyperglycemia (principal); N18.2 Chronic kidney disease, stage 2 (mild)
CPT/HCPCS: 36415; 80048; 83036

== ENCOUNTER → 2021-05-13 11:25 | Outpatient (CLI) | payer OTHER, SELFPAY ==
[2020-08-13 11:42] VITALS: BMI 30.4
[2021-05-13 12:41] LABS: Hemoglobin A1C% w Est Avg Glu 6.3 % (4.0-6.0)
[2021-05-13 12:42] LABS: Blood Urea Nitrogen 17 mg/dL (9-20); Calcium 8.9 mg/dL (8.4-10.2); Carbon Dioxide 22 mmol/L (22-32); Chloride 109 mmol/L (98-107); Estimated Glomerular Filt Rate > 60.0 mL/min (>60); Glucose 167 mg/dL (80-110); HEMOLYSIS < 15 (0-50); Potassium 4.5 mmol/L (3.4-5.1); Sodium 139 mmol/L (137-145)
== END ==
PROVIDERS: Family Provider Internal Medicine; PCP Internal Medicine; Referring Provider Internal Medicine; Visit Provider Internal Medicine
DX: E11.22 Type 2 diabetes mellitus with diabetic chronic kidney disease (principal); N18.2 Chronic kidney disease, stage 2 (mild)
CPT/HCPCS: 36415; 80048; 83036

== ENCOUNTER → 2022-01-29 14:12 | Outpatient (CLI) | payer MEDICARE, SELFPAY ==
[2022-01-28 15:41] VITALS: BMI 30.4
[2022-01-29 15:26] LABS: Alanine Aminotransferase 18 IU/L (<50); Albumin 4.3 g/dL (3.5-5.0); Albumin Globulin Ratio 1.8 (1.0-2.8); Alkaline Phosphatase 45 U/L (38-126); Aspartate Aminotransferase 47 IU/L (17-59); BUN Creatinine Ratio 17.2 (6-22); Bilirubin Total 1.5 mg/dL (0.2-1.3); Blood Urea Nitrogen 21 mg/dL (9-20); Calcium 8.8 mg/dL (8.4-10.2); Carbon Dioxide 23 mmol/L (22-32); Chloride 108 mmol/L (98-107); Estimated Glomerular Filt Rate 56.7 mL/min (>60); Globulin 2.4 g/dL (1.7-4.1); Glucose 159 mg/dL (80-110); HEMOLYSIS 17 (0-50); Sodium 139 mmol/L (137-145); Total Protein 6.7 g/dL (6.3-8.2)
[2022-01-30 15:00] LABS: Hemoglobin A1C% w Est Avg Glu 6.4 % (4.0-6.0)
== END ==
PROVIDERS: Family Provider Internal Medicine; PCP Internal Medicine; Referring Provider Internal Medicine; Visit Provider Internal Medicine
DX: E11.22 Type 2 diabetes mellitus with diabetic chronic kidney disease (principal); I10 Essential (primary) hypertension; N18.2 Chronic kidney disease, stage 2 (mild)
CPT/HCPCS: 36415; 80053; 83036

== ENCOUNTER → 2022-02-04 10:30 | Outpatient (CLI) | payer MEDICARE, SELFPAY ==
[2022-01-28 15:41] VITALS: BMI 30.4
--- NOTE | 2022-02-04 10:32 | DI.RAD.S_ITS ---
PROCEDURE: XR CHEST 2V INDICATIONS: cough TECHNIQUE: 2 views of the chest were acquired. COMPARISON: [facility], CR, XR CHEST 2V, 09/16/2019, 8:32. FINDINGS: Surgical changes and devices: None. Lungs and pleura: There is hyperinflation and chronic interstitial changes without focal infiltrate, pleural effusion or pneumothorax. Mediastinum: Mediastinal contours are normal. Heart size is normal. Bones and chest wall: No suspicious bony abnormalities. Soft tissues appear unremarkable. IMPRESSION: Hyperinflation and chronic interstitial changes without acute cardiopulmonary findings Approved by: Sawyer Kuhn M.D. on 02/04/2022 at 10:01
[2022-02-04 13:09] LABS: Add Manual Diff / Slide Review NO; Basophils Absolute Auto 0 /uL (0-100); Basophils Percent Auto 0.2 % (0-2); Eosinophils Absolute Auto 0 /uL (0-450); Eosinophils Percent Auto 0.4 % (2-4); Lymphocytes Absolute Auto 700 /uL (1100-4500); Lymphocytes Percent Auto 20.9 % (25-40); Mean Corpuscular HGB Conc 34.6 % (30-36); Mean Corpuscular Volume 118.3 fL (80-100); Monocytes Absolute Auto 100 /uL (0-900); Monocytes Percent Auto 2.7 % (3-14); Neutrophils Absolute Auto 2600 /uL (1500-7000); Neutrophils Percent Auto 75.8 % (50-75); Platelet Count 156 X10^3/uL (150-400); Red Blood Cell Count 1.21 X10^6/uL (4.5-5.9); Red Cell Distribution Width 16.6 % (11.6-14.8); White Blood Cell Count 3.4 X10^3/uL (4.5-11.0)
[2022-02-04 13:10] LABS: Hematocrit 14.3 % (41-53)
[2022-02-04 13:37] LABS: Anisocytosis 2+; Macrocytosis 3+
[2022-02-04 13:38] LABS: Schistocytes 1+; Tear Drop Cells 1+
[2022-02-04 13:41] LABS: Erythrocyte Sedimentation Rate 81 MM/HR (0-15)
[2022-02-04 13:42] LABS: Amylase 40 U/L (30-110); C-Reactive Protein Quant < 0.5 mg/dL (<1.0)
[2022-02-04 14:07] LABS: TSH w/ Reflex to FT4 1.12 uIU/mL (0.47-4.68)
== END ==
PROVIDERS: Family Provider Internal Medicine; PCP Internal Medicine; Referring Provider Internal Medicine; Visit Provider Internal Medicine
DX: N18.31 Chronic kidney disease, stage 3a (principal); I12.9 Hypertensive chronic kidney disease with stage 1 through stage 4 chronic kidney disease, or unspecified chronic kidney disease; R05.9 Cough, unspecified; R53.1 Weakness; R63.4 Abnormal weight loss
CPT/HCPCS: 36415; 71046; 82150; 84443; 85025; 85651; 86140

== ENCOUNTER → 2022-03-07 10:40 | Outpatient (CLI) | payer MEDICARE, SELFPAY ==
[2022-01-28 15:41] VITALS: BMI 30.4
[2022-03-07 11:17] LABS: Add Manual Diff / Slide Review NO; Basophils Absolute Auto 200 /uL (0-100); Basophils Percent Auto 3.8 % (0-2); Eosinophils Absolute Auto 200 /uL (0-450); Eosinophils Percent Auto 3.5 % (2-4); Hematocrit 34.3 % (41-53); Hemoglobin 11.2 g/dL (13.5-17.5); Lymphocytes Absolute Auto 1000 /uL (1100-4500); Lymphocytes Percent Auto 20.4 % (25-40); Mean Corpuscular HGB Conc 32.6 % (30-36); Mean Corpuscular Hemoglobin 29.3 PG (26-34); Mean Corpuscular Volume 89.9 fL (80-100); Monocytes Absolute Auto 300 /uL (0-900); Monocytes Percent Auto 6.9 % (3-14); Neutrophils Absolute Auto 3300 /uL (1500-7000); Neutrophils Percent Auto 65.4 % (50-75); Platelet Count 307 X10^3/uL (150-400); Red Blood Cell Count 3.81 X10^6/uL (4.5-5.9); Red Cell Distribution Width 16.9 % (11.6-14.8); White Blood Cell Count 5.1 X10^3/uL (4.5-11.0)
[2022-03-07 11:31] LABS: Alanine Aminotransferase 19 IU/L (<50); Albumin 3.8 g/dL (3.5-5.0); Albumin Globulin Ratio 1.3 (1.0-2.8); Alkaline Phosphatase 65 U/L (38-126); Aspartate Aminotransferase 23 IU/L (17-59); BUN Creatinine Ratio 10.4 (6-22); Bilirubin Total 0.5 mg/dL (0.2-1.3); Blood Urea Nitrogen 12 mg/dL (9-20); Calcium 8.5 mg/dL (8.4-10.2); Carbon Dioxide 27 mmol/L (22-32); Chloride 110 mmol/L (98-107); Estimated Glomerular Filt Rate > 60 mL/min (>60); Glucose 139 mg/dL (80-110); HEMOLYSIS < 15 (0-50); Potassium 4.1 mmol/L (3.4-5.1); Sodium 142 mmol/L (137-145); Total Protein 6.8 g/dL (6.3-8.2)
[2022-03-07 12:16] LABS: TSH w/ Reflex to FT4 0.85 uIU/mL (0.47-4.68)
[2022-03-07 12:18] LABS: Vitamin B12 279 pg/mL (239-931)
[2022-03-08 06:54] LABS: Homocysteine 33.6 umol/L (0.0-21.3)
[2022-03-10 17:17] LABS: Treponema pallidum Antibodies Non Reactive (Non Reactive)
[2022-03-12 11:54] LABS: Lead, Blood 1 ug/dL (0-4)
== END ==
PROVIDERS: Family Provider Internal Medicine; PCP Internal Medicine; Referring Provider Internal Medicine; Visit Provider Internal Medicine
DX: E11.22 Type 2 diabetes mellitus with diabetic chronic kidney disease (principal); I10 Essential (primary) hypertension; E53.8 Deficiency of other specified B group vitamins; N18.31 Chronic kidney disease, stage 3a; R41.3 Other amnesia; R41.89 Other symptoms and signs involving cognitive functions and awareness
CPT/HCPCS: 36415; 80053; 82175; 82607; 83090; 83655; 83825; 84443; 85025; 86780

== ENCOUNTER → 2022-06-02 14:17 | Outpatient (CLI) | payer MEDICARE, SELFPAY ==
[2022-01-28 15:41] VITALS: BMI 30.4
[2022-06-02 15:01] LABS: Add Manual Diff / Slide Review NO; Basophils Absolute Auto 0 /uL (0-100); Basophils Percent Auto 0.4 % (0-2); Eosinophils Absolute Auto 100 /uL (0-450); Eosinophils Percent Auto 1.1 % (2-4); Hematocrit 36.1 % (41-53); Hemoglobin 12.6 g/dL (13.5-17.5); Lymphocytes Absolute Auto 1200 /uL (1100-4500); Lymphocytes Percent Auto 20.6 % (25-40); Mean Corpuscular HGB Conc 35.1 % (30-36); Mean Corpuscular Hemoglobin 29.2 PG (26-34); Mean Corpuscular Volume 83.4 fL (80-100); Monocytes Absolute Auto 400 /uL (0-900); Monocytes Percent Auto 7.4 % (3-14); Neutrophils Absolute Auto 4200 /uL (1500-7000); Neutrophils Percent Auto 70.5 % (50-75); Platelet Count 235 X10^3/uL (150-400); Red Blood Cell Count 4.33 X10^6/uL (4.5-5.9); Red Cell Distribution Width 14.7 % (11.6-14.8)
[2022-06-02 15:26] LABS: Hemoglobin A1C% w Est Avg Glu 6.7 % (4.0-6.0)
[2022-06-02 16:03] LABS: Alanine Aminotransferase 14 IU/L (<50); Albumin 4.2 g/dL (3.5-5.0); Albumin Globulin Ratio 1.4 (1.0-2.8); Alkaline Phosphatase 74 U/L (38-126); Aspartate Aminotransferase 20 IU/L (17-59); BUN Creatinine Ratio 15.5 (6-22); Bilirubin Total 0.8 mg/dL (0.2-1.3); Blood Urea Nitrogen 18 mg/dL (9-20); Calcium 8.5 mg/dL (8.4-10.2); Carbon Dioxide 24 mmol/L (22-32); Chloride 107 mmol/L (98-107); Estimated Glomerular Filt Rate > 60 mL/min (>60); Globulin 2.9 g/dL (1.7-4.1); Glucose 256 mg/dL (80-110); HEMOLYSIS < 15 (0-50); Potassium 4.3 mmol/L (3.4-5.1); Sodium 137 mmol/L (137-145); Total Protein 7.1 g/dL (6.3-8.2)
[2022-06-02 16:50] LABS: Vitamin B12 < 159 pg/mL (239-931)
== END ==
PROVIDERS: Family Provider Internal Medicine; PCP Internal Medicine; Referring Provider Internal Medicine; Visit Provider Internal Medicine
DX: E53.8 Deficiency of other specified B group vitamins (principal); E11.9 Type 2 diabetes mellitus without complications; D64.9 Anemia, unspecified; I10 Essential (primary) hypertension; E11.65 Type 2 diabetes mellitus with hyperglycemia
CPT/HCPCS: 36415; 80053; 82607; 83036; 85025

== ENCOUNTER → 2023-06-12 11:02 | Outpatient (CLI) | payer MEDICARE, SELFPAY ==
[2022-01-28 15:41] VITALS: BMI 30.4
[2023-06-12 11:36] LABS: Alanine Aminotransferase 21 IU/L (<50); Albumin 4.3 g/dL (3.5-5.0); Albumin Globulin Ratio 1.5 (1.0-2.8); Alkaline Phosphatase 69 U/L (38-126); Aspartate Aminotransferase 25 IU/L (17-59); BUN Creatinine Ratio 12.2 (6-22); Bilirubin Total 0.8 mg/dL (0.2-1.3); Blood Urea Nitrogen 14 mg/dL (9-20); Calcium 8.7 mg/dL (8.4-10.2); Carbon Dioxide 22 mmol/L (22-32); Chloride 107 mmol/L (98-107); Estimated Glomerular Filt Rate > 60 mL/min (>60); Globulin 2.8 g/dL (1.7-4.1); Glucose 238 mg/dL (80-110); HEMOLYSIS < 15 (0-50); Sodium 139 mmol/L (137-145); Total Protein 7.1 g/dL (6.3-8.2)
[2023-06-13 04:12] LABS: Labcorp Hemoglobin (Hb) A1c 7.2 % (4.8-5.6)
== END ==
PROVIDERS: Family Provider Internal Medicine; PCP Internal Medicine; Referring Provider Internal Medicine; Visit Provider Internal Medicine
DX: E11.22 Type 2 diabetes mellitus with diabetic chronic kidney disease (principal); I10 Essential (primary) hypertension; N18.31 Chronic kidney disease, stage 3a
CPT/HCPCS: 36415; 80053; 83036